=== PATIENT | male | born 1950 | race Caucasian/White ===

== ENCOUNTER 2021-01-31 08:23 | Outpatient (REF) | payer MEDICARE, SELFPAY ==
[2021-01-31 09:13] LABS: MANUAL DIFF FLAG NO
[2021-01-31 09:26] LABS: Basophils Percent Auto 0.4 % (0-2); Eosinophils Absolute Auto 0.2 X10*3/uL (0.0-0.4); Eosinophils Percent Auto 2.5 % (0-4); Hematocrit 48.5 % (42-52); Imm Gran Abs Auto 0.03 X10*3/uL (0.00-0.03); Imm Gran Pct Auto 0.4 % (0.0-0.4); Lymphocytes Absolute Auto 1.3 X10*3/uL (1.2-4.9); Lymphocytes Percent Auto 16.6 % (20-40); Mean Corpuscular Hemoglobin 30.2 pg (27.0-33.0); Mean Corpuscular Volume 91.5 fL (80-98); Mean Platelet Volume 10.7 fL (9.4-12.4); Monocytes Absolute Auto 0.6 X10*3/uL (0.1-1.2); Monocytes Percent Auto 7.4 % (2-11); Neutrophils Absolute Auto 5.6 X10*3/uL (2.0-8.3); Neutrophils Percent Auto 72.7 % (45-73); Platelet Count 238 X10*3/uL (160-400); Red Cell Distribution Width 13.4 % (11.0-16.0); White Blood Count 7.7 X10*3/uL (4.8-10.8)
[2021-01-31 09:33] LABS: Alanine Aminotransferase 18 U/L (0-40); Albumin Level 4.5 g/dL (3.5-5.0); Alkaline Phosphatase 78 U/L (39-117); Anion Gap 13 (12-20); Aspartate Amino Transferase 13 U/L (5-37); Bilirubin Total 0.6 mg/dL (0.0-1.0); Blood Urea Nitrogen 15 mg/dL (9-16); Calcium 9.8 mg/dL (8.4-10.2); Carbon Dioxide 28 mmol/L (22-29); Chloride 100 mmol/L (96-108); Cholesterol 170 mg/dL; Estimated Glomerular Filt Rate > 60; Glucose Fasting 307 mg/dL (60-99); HDL Cholesterol 50 mg/dL; LDL Cholesterol Calculated 107 mg/dl; Potassium 4.2 mmol/L (3.3-5.1); Sodium 137 mmol/L (135-145); Triglycerides 65 mg/dL
[2021-01-31 09:54] LABS: TSH reflex Free T4 0.54 uIU/mL (0.32-4.0)
[2021-01-31 11:01] LABS: Glucose Urine UA >=1000 MG/DL (NEG); Leukocyte Esterase Urine NEG (NEG); Nitrite Urine NEG (NEG); PH 6.5 (5.0-8.0); Specific Gravity - Urine 1.015 (1.005-1.025); Urine Blood NEG (NEG); Urine Ketones NEG (NEG); Urine Protein NEG (NEG-TRACE)
[2021-01-31 11:06] LABS: Appearance Urine CLEAR; Color Urine YELLOW
[2021-01-31 11:18] LABS: Creatinine Urine 56.21 mg/dL; Microalbum/Creatinine Ratio Ur 24.9 ug/mg cr
[2021-01-31 11:19] LABS: RBC Urine 0 /HPF (0); WBC Urine 0 /HPF (0-4)
== END 2021-01-31 08:24 | disposition home or self-care (01) ==
LOC: HO.LAB 08:23
PROVIDERS: PCP Internal Medicine; Visit Provider Internal Medicine
DX: I10 Essential (primary) hypertension (principal); E11.9 Type 2 diabetes mellitus without complications; E78.00 Pure hypercholesterolemia, unspecified; I25.10 Atherosclerotic heart disease of native coronary artery without angina pectoris
CPT/HCPCS: 36415; 80053; 80061; 81001; 81003; 82043; 84443; 85025

== ENCOUNTER 2022-07-11 09:12 | Outpatient (REF) | payer MEDICARE, SELFPAY ==
[2022-07-11 10:55] LABS: Basophils Percent Auto 0.6 % (0-2); Eosinophils Absolute Auto 0.2 X10*3/uL (0.0-0.4); Eosinophils Percent Auto 3.1 % (0-4); Hematocrit 47.8 % (42.0-52.0); Hemoglobin 15.6 g/dl (14.0-18.0); Imm Gran Abs Auto 0.02 X10*3/uL (0.00-0.03); Imm Gran Pct Auto 0.3 % (0.0-0.4); Lymphocytes Absolute Auto 1.1 X10*3/uL (1.2-4.9); Lymphocytes Percent Auto 16.3 % (20-40); MANUAL DIFF FLAG NO; Mean Corpuscular HGB Conc 32.6 g/dl (31.0-36.0); Mean Corpuscular Hemoglobin 29.3 pg (27.0-33.0); Mean Corpuscular Volume 89.7 fL (80.0-98.0); Mean Platelet Volume 10.5 fL (9.4-12.4); Monocytes Absolute Auto 0.5 X10*3/uL (0.1-1.2); Monocytes Percent Auto 7.9 % (2-11); Neutrophils Absolute Auto 4.9 x10*3/uL (2.0-8.3); Neutrophils Percent Auto 71.8 % (45-73); Platelet Count 233 X10*3/uL (160-400); Red Blood Count 5.33 X10*6/uL (4.60-5.80); Red Cell Distribution Width 13.4 % (11.0-16.0); White Blood Count 6.9 X10*3/uL (4.8-10.8)
[2022-07-11 11:06] LABS: Estimated Average Glucose 298 mg/dL
[2022-07-11 11:11] LABS: Appearance Urine Clear; Color Urine Yellow; Glucose Urine UA >=1000 mg/dL (Negative); Leukocyte Esterase Urine Negative (Negative); Nitrite Urine Negative (Negative); PH 6.5 (5.0-9.0); Specific Gravity - Urine >= 1.030 (1.005-1.025); UMIC TRIGGER UACC YES; Urine Blood Negative (Negative); Urine Ketones Negative (Negative); Urine Protein Negative (Neg-Trace)
[2022-07-11 11:21] LABS: Alanine Aminotransferase 20 U/L (0-40); Albumin Level 4.5 g/dL (3.5-5.0); Alkaline Phosphatase 80 U/L (39-117); Anion Gap 15 (12-20); Aspartate Amino Transferase 14 U/L (5-37); Blood Urea Nitrogen 16 mg/dL (9-16); Calcium 9.5 mg/dL (8.4-10.2); Carbon Dioxide 24 mmol/L (22-29); Chloride 102 mmol/L (96-108); Cholesterol 153 mg/dL; Estimated Glomerular Filt Rate > 60; Glucose Fasting 257 mg/dL (60-99); HDL Cholesterol 46 mg/dL; LDL Cholesterol Calculated 95 mg/dl; Potassium 4.3 mmol/L (3.3-5.1); Sodium 137 mmol/L (135-145); Total Protein 6.8 g/dL (6.5-8.0); Triglycerides 61 mg/dL
[2022-07-11 11:32] LABS: Bacteria Urine None Seen (None Seen); Hyaline Casts Urine 0-2 /LPF (0-2); RBC Urine 0-2 /HPF (0-2); Squamous Epithelial Cell Urine 0-2 /HPF (0-2); WBC Urine 0-5 /HPF (0-5)
[2022-07-11 11:44] LABS: PSA,Total (Free>4and<10) 6.69 ng/mL (0.00-4.00); TSH reflex Free T4 0.58 uIU/mL (0.32-4.0)
[2022-07-11 11:47] LABS: Microalbum/Creatinine Ratio Ur 23.9 ug/mg cr
[2022-07-13 09:52] LABS: C Peptide 1.98 ng/mL (0.80-3.85)
[2022-07-14 10:57] LABS: Free Prostate Spec Ag 1.6 ng/mL; Percent Free Prostate Spec Ag 22 % (calc) (>25); Prostate Specific Ag Total 7.2 ng/mL (< OR = 4.0)
== END 2022-07-11 09:13 | disposition home or self-care (01) ==
LOC: HO.10HDL 09:12
PROVIDERS: Visit Provider Internal Medicine
DX: Z12.5 Encounter for screening for malignant neoplasm of prostate (principal); E11.9 Type 2 diabetes mellitus without complications; E55.9 Vitamin D deficiency, unspecified; E78.00 Pure hypercholesterolemia, unspecified; N40.0 Benign prostatic hyperplasia without lower urinary tract symptoms; R97.20 Elevated prostate specific antigen [PSA]; I10 Essential (primary) hypertension
CPT/HCPCS: 36415; 80053; 80061; 81001; 81003; 82043; 82306; 83036; 84153; 84154; 84443; 84681; 85025

== ENCOUNTER 2022-09-11 10:57 | Outpatient (REF) | payer MEDICARE, SELFPAY | END 2022-09-11 10:58 | disposition home or self-care (01) | LOC: HO.SH 10:57 | PROVIDERS: Visit Provider Internal Medicine | DX: Z01.118 Encounter for examination of ears and hearing with other abnormal findings (principal); H90.3 Sensorineural hearing loss, bilateral | CPT/HCPCS: 92557; 92567 ==

== ENCOUNTER 2022-11-21 10:37 | Outpatient (REF) | payer MEDICARE, SELFPAY ==
[2022-11-21 13:47] LABS: MANUAL DIFF FLAG NO
[2022-11-21 14:01] LABS: Appearance Urine Clear; Color Urine Yellow; Glucose Urine UA >=1000 mg/dL (Negative); Leukocyte Esterase Urine Negative (Negative); Nitrite Urine Negative (Negative); PH 6.5 (5.0-9.0); UMIC TRIGGER UACC YES; Urine Blood Negative (Negative); Urine Ketones Negative (Negative); Urine Protein Negative (Neg-Trace)
[2022-11-21 14:06] LABS: Bacteria Urine None Seen (None Seen); Hyaline Casts Urine 0-2 /LPF (0-2); RBC Urine 0-2 /HPF (0-2); Squamous Epithelial Cell Urine 0-2 /HPF (0-2); WBC Urine 0-5 /HPF (0-5)
[2022-11-21 14:07] LABS: Basophils Percent Auto 0.3 % (0-2); Eosinophils Absolute Auto 0.1 X10*3/uL (0.0-0.4); Hematocrit 47.3 % (42.0-52.0); Hemoglobin 15.3 g/dl (14.0-18.0); Imm Gran Abs Auto 0.03 X10*3/uL (0.00-0.03); Imm Gran Pct Auto 0.5 % (0.0-0.4); Lymphocytes Absolute Auto 1.1 X10*3/uL (1.2-4.9); Lymphocytes Percent Auto 16.6 % (20-40); Mean Corpuscular HGB Conc 32.3 g/dl (31.0-36.0); Mean Corpuscular Hemoglobin 29.1 pg (27.0-33.0); Mean Corpuscular Volume 89.9 fL (80.0-98.0); Mean Platelet Volume 10.9 fL (9.4-12.4); Monocytes Absolute Auto 0.5 X10*3/uL (0.1-1.2); Monocytes Percent Auto 8.2 % (2-11); Neutrophils Absolute Auto 4.8 x10*3/uL (2.0-8.3); Neutrophils Percent Auto 72.4 % (45-73); Platelet Count 230 X10*3/uL (160-400); Red Blood Count 5.26 X10*6/uL (4.60-5.80); Red Cell Distribution Width 13.7 % (11.0-16.0); White Blood Count 6.6 X10*3/uL (4.8-10.8)
[2022-11-21 14:15] LABS: Estimated Average Glucose 272 mg/dL; Hemoglobin A1c % 11.1 %
[2022-11-21 14:31] LABS: Alanine Aminotransferase 16 U/L (0-40); Albumin Level 4.6 g/dL (3.5-5.0); Alkaline Phosphatase 80 U/L (39-117); Anion Gap 15 (12-20); Aspartate Amino Transferase 13 U/L (5-37); Bilirubin Total 0.8 mg/dL (0.0-1.0); Blood Urea Nitrogen 20 mg/dL (9-16); Calcium 9.8 mg/dL (8.4-10.2); Carbon Dioxide 26 mmol/L (22-29); Chloride 100 mmol/L (96-108); Cholesterol 139 mg/dL; Estimated Glomerular Filt Rate > 60; Glucose Fasting 277 mg/dL (60-99); HDL Cholesterol 50 mg/dL; LDL Cholesterol Calculated 78 mg/dl; Potassium 4.6 mmol/L (3.3-5.1); Sodium 136 mmol/L (135-145); Total Protein 6.9 g/dL (6.5-8.0); Triglycerides 57 mg/dL
[2022-11-21 14:35] LABS: Creatinine Urine 61.75 mg/dL; Microalbum/Creatinine Ratio Ur 17.8 ug/mg cr
[2022-11-21 14:40] LABS: TSH reflex Free T4 0.58 uIU/mL (0.32-4.0); Vitamin D 25-OH Total 24.4 ng/mL (>30)
== END 2022-11-21 10:38 | disposition home or self-care (01) ==
LOC: HO.10HDL 10:37
PROVIDERS: Visit Provider Internal Medicine
DX: E78.00 Pure hypercholesterolemia, unspecified (principal); E11.9 Type 2 diabetes mellitus without complications; I10 Essential (primary) hypertension; E55.9 Vitamin D deficiency, unspecified; R30.0 Dysuria
CPT/HCPCS: 36415; 80053; 80061; 81001; 81003; 82043; 82306; 83036; 84443; 85025

== ENCOUNTER 2022-12-29 17:31 | Outpatient (AMB) | payer MEDICARE, SELFPAY ==
[2022-12-29 17:31] VITALS: BP 124/78; PULSE 68; TEMP 36.9; O2SAT 99; BMI 23.7
--- NOTE | 2022-12-29 17:31 | MHC.PC.OV ---
Vital Signs 12/29/22 17:31 Height 5 ft 11 in Weight 170 lb BMI 23.7 BP 124/78 Blood Pressure Location Lt brachial Position Sitting Pulse 68 Pulse Source Pulse Oximeter Temp 98.4 F Pulse Oximetry (%) 99 Oxygen Delivery Method Room Air Intake Visit Reasons: 3m follow up Intake Note: Pt is here for 3 month f/u [employer] Security Consultant Required: No Accompanied by: Self / Same As Patient Allergies No Known Allergies [No Known Allergies*] Allergy (Verified 02/12/23 10:01) Medication List - Last Reconciled 12/29/22 by Srinivasan Acuna MD atorvastatin 80 mg PO DAILY lisinopril 10 mg PO DAILY metformin 500 mg PO BID metoprolol tartrate 25 mg PO BID nitroglycerin 0.4 mg sublingual Q5M sitagliptin phosphate (Januvia) 100 mg PO DAILY 90 days tamsulosin 0.4 mg PO DAILY Tobacco use date assessed: 09/29/22 HPI 3m follow up HPI Details Patient comes in today for his follow up visit States that he feels okay He denies any headaches or dizziness Denies any chest pains, no shortness of breath No nausea/vomiting, no abdominal pain No change in bowel habits noted Had his follow-up labs done last month - to discuss his results [facility] Medical History (Updated 02/12/23 @ 10:25 by Tim Dunbar MD) Vitamin D deficiency Elevated PSA Benign prostatic hyperplasia Coronary artery disease Rectal pain Perianal cyst Diabetes mellitus Pure hypercholesterolemia Benign essential hypertension Surgical History History of colonoscopy (~08/26/19) Hx of CABG (~2004) Family History Father Colon cancer Mother No problems noted. Other Family history non-contributory Social History (Updated 02/12/23 @ 10:04 by Harper Trejo) Household Members: Significant Other Housing: Apartment Do you presently have visiting nurse or other home services: No Alcohol intake: never Patient Tobacco Use Status: Never used Tobacco Second Hand Smoke Exposure: Yes service: No Current occupational status: employed Cognitive needs: No Hearing needs: No Vision needs: Yes Questionnaire PHQ-9 Over the last 2 weeks, how often have you been bothered by any of the following problems? 1. Little interest or pleasure in doing things: not at all 2. Feeling down, depressed, or hopeless: not at all 3. Trouble falling or staying asleep, or sleeping too much: not at all 4. Feeling tired or having little energy: not at all 5. Poor appetite or overeating: not at all 6. Feeling bad about yourself - or that you are a failure or have let yourself or your family down: not at all 7. Trouble concentrating on things, such as reading the newspaper or watching television: not at all 8. Moving or speaking so slowly that other people could have noticed. Or the opposite - being so fidgety or restless that you have been moving around a lot more than usual: not at all 9. Thoughts that you would be better off or of hurting yourself in some way: not at all Total score: 0 Depression Screening Interpretation: Negative 60117 - PHQ-9 Billing: Yes Source: Developed by Drs. Zeus Harvey, Lidia Sen, Abraham Avila and colleagues, with an educational shamika from [employer]. Thrive Questionnaire Date Thrive assessed: 12/29/22 I am a: Patient What is your living situation today?: I have a steady place to live Within the past 12 months, did the food you bought not last and you didn't have the money to get more?: Never true Within the past 12 months, did you worry whether your food would run out before you got money to buy more?: Never true Do you have trouble paying for medicines?: No Do you have trouble getting transportation to medical appointments?: No Do you have trouble paying your heating and electricity bill?: No Do you have trouble taking care of your child, family member or friend?: No Do you have trouble with day-to-day activities such as bathing, preparing meals, shopping, managing finances, etc.?: No Are you currently unemployed and looking for a job?: No Are you interested in more education?: No Currently or been in a relationship where the following occur: no concerns reported AUDIT C Alcohol Use Questionnaire (AUDIT-C) 1. How often do you have a drink containing alcohol?: Never 3. How often do you have six or more drinks on one occasion?: Never Total Score: 0 Score Reviewed/Action Taken: Yes LANDY-7 AMB Questionnaire LANDY-7 Date LANDY - 7 assessed: 12/29/22 Feeling nervous, anxious, or on edge: 0 = Not at all Not being able to stop or control worryin = Not at all Worrying too much about different things: 0 = Not at all Trouble relaxin = Not at all Being so restless that it is hard to sit still: 0 = Not at all Becoming easily annoyed or irritable: 0 = Not at all Feeling afraid as if something awful might happen: 0 = Not at all Total LANDY-7 score (0-4 normal; 5-9 mild; 10-14 moderate; 15-21 severe): 0 Source: Developed by Drs. Zeus Harvey, Lidia Sen, Abraham Avila and colleagues, with an educational shamika from [employer]. Review of Systems Const Denies chills, Denies fatigue, Denies fever(s) and Denies headache(s) ENT Denies dysphagia, Denies dizziness, Denies otalgia, Denies headache(s), Denies neck pain, Denies odynophagia and Denies sore throat Card Denies chest pain, Denies palpitations and Denies dyspnea Resp Denies cough and Denies dyspnea GI Denies abdominal pain, Denies constipation, Denies dysphagia, Denies heartburn, Denies diarrhea, Denies nausea, Denies odynophagia and Denies vomiting Denies dysuria and Denies nocturia Musc Denies neck pain Neuro Denies dizziness and Denies headache(s) Endo Denies fatigue and Denies palpitations Physical exam (Primary Care) Vital Signs: Last Vital Signs Temp 98.4 F 12/29/22 17:31 Pulse 68 12/29/22 17:31 BP 124/78 12/29/22 17:31 Pulse Ox 99 12/29/22 17:31 Oxygen Delivery Method Room Air 12/29/22 17:31 BMI result Body Mass Index 23.7 Tobacco/Smoking Status: Tobacco use Status Tobacco use date assessed 09/29/22 12/29/22 17:34 Patient Tobacco Use Status Never used Tobacco 12/29/22 17:34 PHQ-9: PHQ-9 Score PHQ-9: Total score 0 12/29/22 17:48 Depression Screening Interpretation: Negative Thrive Assessment: Date of Thrive Assessment Date Thrive assessed 12/29/22 12/29/22 17:36 Currently or been in a relationship where the following occur: no concerns reported Const General: no acute distress and alert HENMT Ears: TM's normal bilaterally and EAC's normal Throat: Yes posterior oropharynx normal and Yes tonsils normal (no TP congestion) Neck Neck: Yes no lymphadenopathy and Yes supple Resp Auscultation: clear to auscultation bilaterally, no rales and no wheezes Cardio Rate: regular rate Rhythm: regular rhythm Heart sounds: no murmurs GI Palpation (GI): Soft to palpation, nontender and No hepatosplenomegaly present Skin General skin exam: no rashes or lesions noted Extrem General: Yes no clubbing, cyanosis or edema Results Reviewed Results Reviewed: Laboratory Tests 11/21/22 11/21/22 11/21/22 10:42 10:42 10:42 WBC 6.6 Hgb 15.3 Hct 47.3 Plt Count 230 Sodium 136 Potassium 4.6 Creatinine 0.98 Estimated GFR > 60 Fasting Glucose 277 H Hemoglobin A1c % 11.1 Calcium 9.8 AST 13 ALT 16 Triglycerides 57 Cholesterol 139 LDL Cholesterol, Calc 78 HDL Cholesterol 50 25-OH Vitamin D Total 24.4 TSH 0.58 Ur Specific [place] Urine Protein Urine Glucose (UA) Urine Blood Microalb/Creat Ratio 11/21/22 11/21/22 10:48 10:48 WBC Hgb Hct Plt Count Sodium Potassium Creatinine Estimated GFR Fasting Glucose Hemoglobin A1c % Calcium AST ALT Triglycerides Cholesterol LDL Cholesterol, Calc HDL Cholesterol 25-OH Vitamin D Total TSH Ur Specific [place] 1.020 Urine Protein Negative Urine Glucose (UA) >=1000 H Urine Blood Negative Microalb/Creat Ratio 17.8 Assessment and Plan Assessment & Plan (1) Diabetes mellitus: Code(s): E11.9 - Type 2 diabetes mellitus without complications Qualifiers: Diabetes mellitus complication status: with hyperglycemia Diabetes mellitus care home insulin use: without care home use Diabetes mellitus type: type 2 Qualified Code(s): E11.65 - Type 2 diabetes mellitus with hyperglycemia Plan: HgbA1c was at 11.1% on his labs done last month (in-office HgbA1c was at 10.9% a few months ago) - goal is at least <7.5% Reinforced diabetic diet Continue Sitagliptin 100 mg QD; will increase his Metformin now to 1000 mg BID Is advised that we will also consider referring him to Endocrinology for further evaluation and management if he still cannot get his diabetes control improved significantly over the next few months [facility] exam (2) Coronary artery disease: Comment: KONG to LAD, SVG to ramus, OM, posterior lateral branch and RCA in 2004 Code(s): I25.10 - Atherosclerotic heart disease of [place] coronary artery without angina pectoris Qualifiers: Associated angina: without angina Coronary Disease-Associated Artery/Lesion type: [place] artery [place] vs. transplanted heart: [place] heart Qualified Code(s): I25.10 - Atherosclerotic heart disease of [place] coronary artery without angina pectoris Plan: S/P CABG in 2004 Continue Aspirin 81 mg QD and Metoprolol 25 mg BID Patient has NTG 0.4 mg tablets to take SL PRN for chest pains Follow up with cardiology as scheduled (3) Pure hypercholesterolemia: Code(s): E78.00 - Pure hypercholesterolemia, unspecified Plan: Results of his labs done last month reviewed and discussed with patient Reinforced low cholesterol diet Continue Atorvastatin 80 mg QD Will recheck his fasting lipids and labs in 4 months for follow up (4) Benign essential hypertension: Code(s): I10 - Essential (primary) hypertension Plan: Reinforced low sodium diet - goal is systolic BP of at least 120 to 130 mm or less Continue Lisinopril 10 mg QD and Metoprolol 25 mg BID (5) Vitamin D deficiency: Code(s): E55.9 - Vitamin D deficiency, unspecified Plan: His Vitamin D level was still low on his labs done last month Will start him on Vitamin D3 2000 units QD (6) Benign prostatic hyperplasia: Code(s): N40.0 - Benign prostatic hyperplasia without lower urinary tract symptoms Qualifiers: Lower urinary tract symptom presence: unspecified whether lower urinary tract symptoms present Qualified Code(s): N40.0 - Benign prostatic hyperplasia without lower urinary tract symptoms Plan: Total PSA was elevated at 6.69 but free PSA level was normal at 1.6 and % of free PSA was low at 22% when last checked in June 2022 Continue Tamsulosin 0.4 mg Q HS Follow up with urology as scheduled Plan Follow up in 4 months Orders: Orders Complete Blood Count Auto Diff 4 Months I10 - Essential (primary) hypertension Hemoglobin A1c 4 Months E11.9 - Type 2 diabetes mellitus without complications UA CC w/rflx Micro + Cult 4 Months R30.0 - Dysuria Comprehensive [place]. Panel Fast 4 Months E78.00 - Pure hypercholesterolemia, unspecified Lipid Panel 4 Months E78.00 - Pure hypercholesterolemia, unspecified TSH reflex Free T4 4 Months E78.00 - Pure hypercholesterolemia, unspecified Microalbumin, Random (w Creat) 4 Months E11.9 - Type 2 diabetes mellitus without complications Vitamin D 25-OH Total 4 Months E55.9 - Vitamin D deficiency, unspecified Medications: New cholecalciferol (vitamin D3) 50 mcg PO DAILY 90 caps 3RF 90 days E55.9 - Vitamin D deficiency, unspecified Changed From metformin 500 mg PO BID 180 tabs 0RF To metformin 1,000 mg PO BID 180 tabs 1RF 90 days Coding Level of Care Code Est Pt Level 4 (97045) Diagnoses Type 2 diabetes mellitus with hyperglycemia, without long-term current use of insulin E11.65 Diabetes mellitus complication status: with hyperglycemia Diabetes mellitus termite inspector insulin use: without termite inspector use Diabetes mellitus type: type 2 Coronary artery disease involving [place] coronary artery of [place] heart without angina pectoris I25.10 Associated angina: without angina Coronary Disease-Associated Artery/Lesion type: [place] artery [place] vs. transplanted heart: [place] heart Pure hypercholesterolemia E78.00 Benign essential hypertension I10 Vitamin D deficiency E55.9 Benign prostatic hyperplasia, unspecified whether lower urinary tract symptoms present N40.0 Lower urinary tract symptom presence: unspecified whether lower urinary tract symptoms present
== END 2022-12-29 18:00 | disposition home or self-care (01) ==
LOC: HO.HMGH 17:31
PROVIDERS: PCP Internal Medicine; Visit Provider Internal Medicine
DX: E11.65 Type 2 diabetes mellitus with hyperglycemia (principal); I25.10 Atherosclerotic heart disease of native coronary artery without angina pectoris; E78.00 Pure hypercholesterolemia, unspecified; I10 Essential (primary) hypertension; E55.9 Vitamin D deficiency, unspecified; N40.0 Benign prostatic hyperplasia without lower urinary tract symptoms
CPT/HCPCS: 99214

== ENCOUNTER 2023-01-10 01:15 | Inpatient (IN) | payer MEDICARE, SELFPAY ==
[2023-01-10] VITALS (12 sets, daily range): BP systolic 94–168; BP diastolic 45–94; PULSE 78–155; RESP 9–18; TEMP 36.6–37.1; O2SAT 95–100; BMI 28.6; BMI 26.6
--- NOTE | ~2023-01-10 | XR_ITS ---
EXAMINATION: XR CHEST CLINICAL INFORMATION: Palpitations COMPARISON: 12/19/2015 TECHNIQUE: Frontal view of the chest was obtained. FINDINGS: Normal symmetric lung volumes. No parenchymal consolidation. No pleural effusion. No pneumothorax. Cardiomediastinal silhouette and pulmonary vascularity are within normal limits. No acute osseous abnormalities. Median sternotomy. XR/XR chest 1V IMPRESSION: No acute findings.
--- NOTE | 2023-01-10 01:24 | ECG_ITS ---
Test Reason : Tachycardia Blood Pressure : / mmHG Vent. Rate : 139 BPM Atrial Rate : 278 BPM P-R Int : 000 ms QRS Dur : 078 ms QT Int : 356 ms P-R-T Axes : 258 -42 255 degrees QTc Int : 541 ms Poor data quality, interpretation may be adversely affected Atrial flutter with 2:1 A-V conduction Left axis deviation Inferior-posterior infarct , age undetermined ST & T wave abnormality, consider lateral ischemia Abnormal ECG When compared with ECG of 19-DEC-2015 17:04, Rhythm change Referred By: Diego Shaffer Electronically Signed By:CHRISTINE MARTIN
[2023-01-10 01:37] LABS: Glucose, Whole Blood 325 mg/dL (60-115)
[2023-01-10 01:39] LABS: MANUAL DIFF FLAG NO
[2023-01-10 01:40] LABS: Basophils Percent Auto 0.3 % (0-2); Eosinophils Absolute Auto 0.2 X10*3/uL (0.0-0.4); Eosinophils Percent Auto 2.6 % (0-4); Hematocrit 44.9 % (42.0-52.0); Imm Gran Abs Auto 0.02 X10*3/uL (0.00-0.03); Imm Gran Pct Auto 0.2 % (0.0-0.4); Lymphocytes Absolute Auto 1.4 X10*3/uL (1.2-4.9); Lymphocytes Percent Auto 15.1 % (20-40); Mean Corpuscular HGB Conc 33.4 g/dl (31.0-36.0); Mean Corpuscular Hemoglobin 29.5 pg (27.0-33.0); Mean Corpuscular Volume 88.2 fL (80.0-98.0); Mean Platelet Volume 10.5 fL (9.4-12.4); Monocytes Absolute Auto 0.6 X10*3/uL (0.1-1.2); Monocytes Percent Auto 6.9 % (2-11); Neutrophils Absolute Auto 6.7 x10*3/uL (2.0-8.3); Neutrophils Percent Auto 74.9 % (45-73); Platelet Count 184 X10*3/uL (160-400); Red Blood Count 5.09 X10*6/uL (4.60-5.80); Red Cell Distribution Width 13.7 % (11.0-16.0)
--- NOTE | 2023-01-10 01:44 | ED_ITS ---
HPI - Arrhythmia/Palpitations General Chief Complaint: Arrhythmia/Palpitations Stated Complaint: Chest Pressure with SVT Time Seen by Provider: 01/10/23 01:22 Source: patient and EMS Mode of arrival: EMS Limitations: no limitations History of Present Illness HPI narrative: 72-year-old male history of HTN, CAD, s/p quadruple bypass. Patient presented today by EMS for evaluation of palpitation patient was found at the scene to have elevated heart rate, given at the scene 6/12 mg of adenosine that primary slowed down the heart rate, in the ED patient's heart rate in the 140s EKG is showing atrial flutter, patient is not known to have history of AFib/atrial flutter not taking anticoagulation. Patient has no chest pain, no SOB, not dizziness, not feeling confused. Related Data Previous Rx's Medication Instructions Recorded sitagliptin phosphate 100 mg 100 mg PO DAILY 90 days #90 tabs 07/18/22 tablet (Januvia) metoprolol tartrate 25 mg tablet 25 mg PO BID #180 tabs 08/13/22 atorvastatin 80 mg tablet 80 mg PO DAILY #90 tabs 11/12/22 lisinopril 10 mg tablet 10 mg PO DAILY #90 tabs 11/12/22 tamsulosin 0.4 mg capsule 0.4 mg PO DAILY #90 caps 11/12/22 cholecalciferol (vitamin D3) 50 50 mcg PO DAILY 90 days #90 caps 12/29/22 mcg (2,000 unit) capsule metformin 1,000 mg tablet 1,000 mg PO BID 90 days #180 tabs 12/29/22 nitroglycerin 0.4 mg sublingual 0.4 mg sublingual Q5M for angina 01/03/23 tablet #25 tabs Allergies Allergy/AdvReac Type Severity Reaction Status Date / Time No Known Allergies Allergy Verified 12/29/22 17:39 [No Known Allergies*] Review of Systems Review of Systems: All other systems are reviewed and are negative Constitutional: Reports as per HPI and Reports no additional constitutional complaints Eyes: Reports as per HPI and Reports no additional eye complaints Reports system reviewed and no additional complaints, except as documented Cardiovascular: Reports as per HPI and Reports no additional cardiovascular complaints Respiratory: Reports as per HPI and Reports no additional respiratory complaints Gastrointestinal: Reports as per HPI and Reports no additional gastrointestinal complaints Genitourinary: Reports no additional female genitourinary complaints Musculoskeletal: Reports no additional musculoskeletal complaints Skin/Breast: Reports system reviewed and no additional complaints, except as docu Psychiatric: Reports no additional psychiatric complaints Endocrine: Reports no additional endocrine complaints Hematologic/Lymphatic: Reports no additional hematologic/lymphatic complaints Allergic/Immunologic: Reports no additional allergic/immunologic complaints Reports system reviewed and no additional complaints, except as documented and R eports Abnormal speech present [facility] Past Medical History Medical History Benign essential hypertension Benign prostatic hyperplasia Coronary artery disease Diabetes mellitus Elevated PSA Perianal cyst Pure hypercholesterolemia Rectal pain Vitamin D deficiency Surgical History History of colonoscopy (~08/26/19) Hx of CABG (~2004) Family History Family History Other Family history non-contributory Social History Social History Housing: Apartment Alcohol intake: current Alcohol intake frequency: does not drink Patient Tobacco Use Status: Never used Tobacco Smoked in Last 30 Days: No Second Hand Smoke Exposure: Yes Use of substances other than those prescribed or required for medical reasons: No Advance Directives: No Advance Directives Information Provided: No service: No Current occupational status: employed Cognitive needs: No Hearing needs: No Vision needs: Yes Physical Exam Vital Signs: Vital Signs: Last Vital Signs Temp 98.7 F 01/10/23 02:04 Pulse 121 H 01/10/23 03:46 Resp 12 01/10/23 03:46 BP 110/45 L 01/10/23 03:46 Pulse Ox 98 01/10/23 03:46 O2 Del Method Room Air 01/10/23 03:46 BMI result Body Mass Index 28.6 Vital signs have been reviewed as appeared to be correct. Blood pressure normal. Heart rate elevated. Respiration rate normal. Temperature normal. Oxygen saturation normal. Appearance: Alert. Oriented X3. No acute distress. Head: Normal external exam. Normocephalic. Atraumatic. No Cruz signs noted. No raccoon eyes noted Eyes: PERRLA. EOMI. Conjunctiva and sclera normal. Eyelids normal. ENT: TM's Normal. Pharynx normal. Uvula midline. Moist mucous membranes. No trismus noted. No drooling noted. No muffled voice noted. Neck: Normal inspection. Neck supple. FROM. No adenopathy. Thyroid Normal. No meningeal signs. No neck mass noted. CVS: Normal heart rate and rhythm. Heart sound normal. No murmurs noted. Pulses normal throughout. Respiratory: No respiratory distress. Painless inspiration. Breath sounds normal. No wheezes/rales/rhonchi noted. Chest nontender. No accessory muscle usage noted or decreased air movement noted. Abdomen: Soft and nontender. Bowel sounds normal in all 4 quadrants. No distention noted. No organomegaly noted. No visible injury noted. Back: No CVA tenderness. Full range of motion noted. Skin: Skin warm and dry. Normal skin color. Normal skin turgor. No rashes/lesions/lacerations noted. Extremities: No lower extremity edema. Extremities exhibit normal range of motion. Extremities nontender. Neuro: Oriented X 3. Cranial nerve exam: II-XII are grossly intact No motor deficit. No sensory deficit. Reflexes normal. Course Course Course Narrative: 72-year-old male with CAD and quadruple bypass history came in with palpitation found to be in atrial flutter patient is on Cardizem drip, heart rate is fluctuating anywhere between 100-140 flutter, patient remained asymptomatic with no CP or palpitation or dizziness. Hyperglycemia with no anion gap or electrolyte disturbance no DKA was given regular insulin. Medications Administered Generic Name Dose Route Start Last Admin Trade Name Freq PRN Reason Stop Dose Admin Diltiazem HCl 125 mg/ Sodium 125 mls @ 0 mls/hr 01/10/23 02:00 01/10/23 02:45 Chloride IVCONT 15 mg/hr .Q0M CLARITA 15 mls/hr Titration Protocol Per Protocol Discontinued Medications Generic Name Dose Route Start Last Admin Trade Name Freq PRN Reason Stop Dose Admin Diltiazem HCl 20 mg 01/10/23 01:42 01/10/23 01:48 Diltiazem Hcl 50 Mg/10 Ml Vial IVPUSH 01/10/23 01:43 20 mg STAT STA Administration Medical Decision Making Differential Diagnosis Differential Diagnoses: The differential diagnosis associated with the presentation includes (Supraventricular arrhythmia, ACS, electrolyte disturbance, anemia, DKA.) Admission/Observation Consideration of admission/observation: Escalation of care including admission/observation considered Consult Healthcare Provider Management of the patient was discussed with: Hospitalist (Dr. Hobson) Lab Data MDM Lab Attestation statement: I reviewed the patient's lab results. 01/10/23 01:34 01/10/23 01:34 Labs: Lab Results 01/10/23 01/10/23 01/10/23 Range/Units 01:32 01:34 01:34 WBC 9.0 (4.8-10.8) X10*3/uL RBC 5.09 (4.60-5.80) X10*6/uL Hgb 15.0 (14.0-18.0) g/dl Hct 44.9 (42.0-52.0) % MCV 88.2 (80.0-98.0) fL MCH 29.5 (27.0-33.0) pg MCHC 33.4 (31.0-36.0) g/dl RDW 13.7 (11.0-16.0) % Plt Count 184 (160-400) X10*3/uL MPV 10.5 (9.4-12.4) fL Immature Gran % (Auto) 0.2 (0.0-0.4) % Neut % (Auto) 74.9 H (45-73) % Lymph % (Auto) 15.1 L (20-40) % [place] % (Auto) 6.9 (2-11) % Eos % (Auto) 2.6 (0-4) % Baso % (Auto) 0.3 (0-2) % Lymph # (Auto) 1.4 (1.2-4.9) X10*3/uL [place] # (Auto) 0.6 (0.1-1.2) X10*3/uL Eos # (Auto) 0.2 (0.0-0.4) X10*3/uL Baso # (Auto) 0.0 (0.0-0.2) X10*3/uL Abs Immat Gran (auto) 0.02 (0.00-0.03) X10*3/uL Absolute Neuts (auto) 6.7 (2.0-8.3) x10*3/uL Absolute Nucleated RBC 0.000 (0.0-0.012) X10*3/uL Nucleated RBC % (auto) 0.0 (0.0-0.2) /100WBC D-Dimer High Sensitivty NG/ML Sodium 135 (135-145) mmol/L Potassium 4.2 (3.3-5.1) mmol/L Chloride 101 (96-108) mmol/L Carbon Dioxide 22 (22-29) mmol/L Anion Gap 16 (12-20) BUN 19 H (9-16) mg/dL Creatinine 1.10 (0.5-1.4) mg/dL Estim Creat Clear Calc 59.6 Estimated GFR > 60 POC Glucose 325 H (60-115) mg/dL Random Glucose 402 H* (60-115) mg/dL Calcium 9.1 D (8.4-10.2) mg/dL Magnesium 1.9 (1.6-2.6) mg/dL Total Bilirubin 0.6 (0.0-1.0) mg/dL AST 16 (5-37) U/L ALT 23 (0-40) U/L Alkaline Phosphatase 125 H (39-117) U/L Troponin I High Sens (<3.5-35.0) ng/L B-Natriuretic Peptide (<100) pg/mL Total Protein 6.6 (6.5-8.0) g/dL Albumin 4.4 (3.5-5.0) g/dL Urine Color Urine Appearance Urine pH (5.0-9.0) Ur Specific [place] (1.005-1.025) Urine Protein (Neg-Trace) mg/dL Urine Glucose (UA) (Negative) mg/dL Urine Ketones (Negative) mg/dL Urine Blood (Negative) Urine Nitrite (Negative) Ur Leukocyte Esterase (Negative) Urine RBC (0-2) /HPF Urine WBC (0-5) /HPF Ur Squamous Epith Cells (0-2) /HPF Urine Bacteria (None Seen) Hyaline Casts (0-2) /LPF COVID-19 (ROSALIO) (Negative) COVID-19 Clin Com 01/10/23 01/10/23 01/10/23 Range/Units 01:34 01:34 01:34 WBC (4.8-10.8) X10*3/uL RBC (4.60-5.80) X10*6/uL Hgb (14.0-18.0) g/dl Hct (42.0-52.0) % MCV (80.0-98.0) fL MCH (27.0-33.0) pg MCHC (31.0-36.0) g/dl RDW (11.0-16.0) % Plt Count (160-400) X10*3/uL MPV (9.4-12.4) fL Immature Gran % (Auto) (0.0-0.4) % Neut % (Auto) (45-73) % Lymph % (Auto) (20-40) % [place] % (Auto) (2-11) % Eos % (Auto) (0-4) % Baso % (Auto) (0-2) % Lymph # (Auto) (1.2-4.9) X10*3/uL [place] # (Auto) (0.1-1.2) X10*3/uL Eos # (Auto) (0.0-0.4) X10*3/uL Baso # (Auto) (0.0-0.2) X10*3/uL Abs Immat Gran (auto) (0.00-0.03) X10*3/uL Absolute Neuts (auto) (2.0-8.3) x10*3/uL Absolute Nucleated RBC (0.0-0.012) X10*3/uL Nucleated RBC % (auto) (0.0-0.2) /100WBC D-Dimer High Sensitivty 153 NG/ML Sodium (135-145) mmol/L Potassium (3.3-5.1) mmol/L Chloride (96-108) mmol/L Carbon Dioxide (22-29) mmol/L Anion Gap (12-20) BUN (9-16) mg/dL Creatinine (0.5-1.4) mg/dL Estim Creat Clear Calc Estimated GFR POC Glucose (60-115) mg/dL Random Glucose (60-115) mg/dL Calcium (8.4-10.2) mg/dL Magnesium (1.6-2.6) mg/dL Total Bilirubin (0.0-1.0) mg/dL AST (5-37) U/L ALT (0-40) U/L Alkaline Phosphatase (39-117) U/L Troponin I High Sens 12.3 (<3.5-35.0) ng/L B-Natriuretic Peptide (<100) pg/mL Total Protein (6.5-8.0) g/dL Albumin (3.5-5.0) g/dL Urine Color Urine Appearance Urine pH (5.0-9.0) Ur Specific [place] (1.005-1.025) Urine Protein (Neg-Trace) mg/dL Urine Glucose (UA) (Negative) mg/dL Urine Ketones (Negative) mg/dL Urine Blood (Negative) Urine Nitrite (Negative) Ur Leukocyte Esterase (Negative) Urine RBC (0-2) /HPF Urine WBC (0-5) /HPF Ur Squamous Epith Cells (0-2) /HPF Urine Bacteria (None Seen) Hyaline Casts (0-2) /LPF COVID-19 (ROSALIO) Negative (Negative) COVID-19 Clin Com See Note 01/10/23 01/10/23 Range/Units 01:34 01:58 WBC (4.8-10.8) X10*3/uL RBC (4.60-5.80) X10*6/uL Hgb (14.0-18.0) g/dl Hct (42.0-52.0) % MCV (80.0-98.0) fL MCH (27.0-33.0) pg MCHC (31.0-36.0) g/dl RDW (11.0-16.0) % Plt Count (160-400) X10*3/uL MPV (9.4-12.4) fL Immature Gran % (Auto) (0.0-0.4) % Neut % (Auto) (45-73) % Lymph % (Auto) (20-40) % [place] % (Auto) (2-11) % Eos % (Auto) (0-4) % Baso % (Auto) (0-2) % Lymph # (Auto) (1.2-4.9) X10*3/uL [place] # (Auto) (0.1-1.2) X10*3/uL Eos # (Auto) (0.0-0.4) X10*3/uL Baso # (Auto) (0.0-0.2) X10*3/uL Abs Immat Gran (auto) (0.00-0.03) X10*3/uL Absolute Neuts (auto) (2.0-8.3) x10*3/uL Absolute Nucleated RBC (0.0-0.012) X10*3/uL Nucleated RBC % (auto) (0.0-0.2) /100WBC D-Dimer High Sensitivty NG/ML Sodium (135-145) mmol/L Potassium (3.3-5.1) mmol/L Chloride (96-108) mmol/L Carbon Dioxide (22-29) mmol/L Anion Gap (12-20) BUN (9-16) mg/dL Creatinine (0.5-1.4) mg/dL Estim Creat Clear Calc Estimated GFR POC Glucose (60-115) mg/dL Random Glucose (60-115) mg/dL Calcium (8.4-10.2) mg/dL Magnesium (1.6-2.6) mg/dL Total Bilirubin (0.0-1.0) mg/dL AST (5-37) U/L ALT (0-40) U/L Alkaline Phosphatase (39-117) U/L Troponin I High Sens (<3.5-35.0) ng/L B-Natriuretic Peptide 39 (<100) pg/mL Total Protein (6.5-8.0) g/dL Albumin (3.5-5.0) g/dL Urine Color Yellow Urine Appearance Clear Urine pH 7.0 (5.0-9.0) Ur Specific [place] 1.020 (1.005-1.025) Urine Protein Negative (Neg-Trace) mg/dL Urine Glucose (UA) >=1000 H (Negative) mg/dL Urine Ketones Negative (Negative) mg/dL Urine Blood Negative (Negative) Urine Nitrite Negative (Negative) Ur Leukocyte Esterase Negative (Negative) Urine RBC 0-2 (0-2) /HPF Urine WBC 0-5 (0-5) /HPF Ur Squamous Epith Cells 0-2 (0-2) /HPF Urine Bacteria None Seen (None Seen) Hyaline Casts 0-2 (0-2) /LPF COVID-19 (ROSALIO) (Negative) COVID-19 Clin Com Independent Interpretation I performed an independent interpretation of an: EKG (A flutter with 2-1 AV conduction, left axis deviation, left axis deviation, no ST-T changes.) and Plain X-Ray (No acute pathology.) Radiology Impression Discussion of test interpretation with radiology: I have reviewed the radiologist's reading. Critical Care Time Critical Care Time Critical Care Time: Yes Total Critical Care Time: 60 Attestation: I spent 60 minutes providing critical care service to the patient, this includ ing time spent at the bedside to evaluate the patient, reassess the patient, monitoring vital signs, review labs, and radiographic studies, counseling the patient/family, discussing the case with consultants, disposition the patient. Discharge Plan Discharge Clinical Impression: Atrial flutter, Acute hyperglycemia Patient Disposition: Admitted As Inpatient
[2023-01-10] MEDS: dilTIAZem HCL 50 MG/10 ML VIAL 20 MG IVPUSH (01:48)
[2023-01-10 01:55] LABS: D Dimer High Sensitivity 153 NG/ML
[2023-01-10 02:02] LABS: COVID-19 Test Negative (Negative); IDNOW Serial# 16C4AD1C; Troponin-I High Sensitivity 12.3 ng/L (<3.5-35.0)
[2023-01-10 02:03] LABS: Appearance Urine Clear; Color Urine Yellow; Glucose Urine UA >=1000 mg/dL (Negative); Leukocyte Esterase Urine Negative (Negative); Nitrite Urine Negative (Negative); UMIC TRIGGER UACC YES; Urine Blood Negative (Negative); Urine Ketones Negative (Negative); Urine Protein Negative (Neg-Trace)
[2023-01-10 02:06] LABS: Bacteria Urine None Seen (None Seen); Hyaline Casts Urine 0-2 /LPF (0-2); RBC Urine 0-2 /HPF (0-2); Squamous Epithelial Cell Urine 0-2 /HPF (0-2); WBC Urine 0-5 /HPF (0-5)
[2023-01-10 02:08] LABS: Alanine Aminotransferase 23 U/L (0-40); Albumin Level 4.4 g/dL (3.5-5.0); Alkaline Phosphatase 125 U/L (39-117); Anion Gap 16 (12-20); Aspartate Amino Transferase 16 U/L (5-37); Bilirubin Total 0.6 mg/dL (0.0-1.0); Blood Urea Nitrogen 19 mg/dL (9-16); Calcium 9.1 mg/dL (8.4-10.2); Carbon Dioxide 22 mmol/L (22-29); Chloride 101 mmol/L (96-108); Creatinine Clr Calc Pharmacy 59.6; Estimated Glomerular Filt Rate > 60; Glucose Random 402 mg/dL (60-115); Potassium 4.2 mmol/L (3.3-5.1); Sodium 135 mmol/L (135-145); Total Protein 6.6 g/dL (6.5-8.0)
[2023-01-10] MEDS: dilTIAZem HCL 125 MG in 0.9 % Sodium Chloride 100 ML 10 MG IVCONT (02:14)
[2023-01-10 02:16] LABS: Magnesium 1.9 mg/dL (1.6-2.6)
--- NOTE | 2023-01-10 02:20 | PC.NURSE ---
Pt aox4 resting at the bedside. Dilt 125 started at 10mg/hr as ordered. Sinus tach on monitor with HR 135.
[2023-01-10 02:29] LABS: B Type Natriuretic Peptide 39 pg/mL (<100)
--- NOTE | 2023-01-10 02:46 | PC.NURSE ---
Pt aox4 resting at the bedside. Sinus tach on monitor with HR 150. Dilt drip titrated to 15mg/hr. MD aware.
[2023-01-10] MEDS: Insulin Regular, Human 100 UNIT/ML 3 ML VIAL IVPUSH (03:51)
--- NOTE | 2023-01-10 04:13 | PM.IMHP ---
History of Present Illness Date of Service: 01/10/23 Chief Complaint: Palpitations This is a 72-year-old male with pertinent history of essential hypertension, CAD status post CABG, mixed hyperlipidemia, qvf-rslxvfw-ywpewevyq diabetes mellitus, BPH who presents to the emergency department for evaluation of palpitations. Patient states he has been having on and off palpitations for the last 4-6 weeks. On the day of presentation, it was sustained and worse with any activity. Patient denies associated chest discomfort or shortness of breath. No fever, chills, cough, abdominal pain, changes in urinary or bowel habits. No previous history of atrial fibrillation or atrial flutter. Not on anticoagulation. Upon EMS arrival, he was given 6 mg and 12 mg of adenosine. Upon arrival in the ER, his heart rate was in the 160s with 12 lead EKG showing atrial flutter. He was given IV diltiazem push and initiated on diltiazem drip. Review of Systems Constitutional: Constitutional: Reports no additional constitutional complaints Cardiovascular: Cardiovascular: Reports palpitations Respiratory: Respiratory: Reports no additional respiratory complaints Gastrointestinal: Gastrointestinal: Reports no additional gastrointestinal complaints Genitourinary: Genitourinary: Reports no additional male genitourinary complaints Endocrine: Endocrine: Reports palpitations [facility] Medical History Benign essential hypertension Benign prostatic hyperplasia Coronary artery disease Diabetes mellitus Elevated PSA Perianal cyst Pure hypercholesterolemia Rectal pain Vitamin D deficiency Family History Other Family history non-contributory Surgical History History of colonoscopy (~08/26/19) Hx of CABG (~2004) Social History Housing: Apartment Alcohol intake: current Alcohol intake frequency: does not drink Patient Tobacco Use Status: Never used Tobacco Smoked in Last 30 Days: No Second Hand Smoke Exposure: Yes Use of substances other than those prescribed or required for medical reasons: No Advance Directives: No Advance Directives Information Provided: No service: No Current occupational status: employed Cognitive needs: No Hearing needs: No Vision needs: Yes Meds Allergies Allergy/AdvReac Type Severity Reaction Status Date / Time No Known Allergies Allergy Verified 12/29/22 17:39 [No Known Allergies*] Active Medications: Current Medications Acetaminophen (Acetaminophen 325 Mg Tablet) 650 mg PO Q6H PRN PRN Reason: Pain, Mild (Pain Scale 1-3) Acetaminophen (Acetaminophen Supp 650 Mg Supp.Rect) 650 mg [place] Q6H PRN PRN Reason: Pain, Mild (Pain Scale 1-3) Enoxaparin Sodium (Enoxaparin Sodium 40 Mg/0.4 Ml Syringe) 40 mg SUBCUT Q24H CLARITA Diltiazem HCl 125 mg/ Sodium (Chloride) 125 mls @ 0 mls/hr IVCONT .Q0M CLARITA; Protocol Last Titration: 01/10/23 02:45 Dose: 15 mg/hr, 15 mls/hr Melatonin (Melatonin 3 Mg Tablet) 6 mg PO BEDTIME PRN PRN Reason: Insomnia Ondansetron HCl (Ondansetron Hcl 4 Mg/2 Ml Vial) 4 mg IVPUSH Q8H PRN PRN Reason: Nausea and Vomiting Pharmacy Consult (Consult Rx Perform Med Rec) 1 each MISCELLANE ONCE PRN PRN Reason: Consult order Sodium Chloride (0.9 % Sodium Chloride Flush 3 Ml Syringe) 3 ml IVFLUSH QSHIFT CLARITA Physical Exam Vital Signs and Narrative: Vital Signs: Last Vital Signs Temp 98.7 F 01/10/23 02:04 Pulse 121 H 01/10/23 03:46 Resp 12 01/10/23 03:46 BP 110/45 L 01/10/23 03:46 Pulse Ox 98 01/10/23 03:46 O2 Del Method Room Air 01/10/23 03:46 BMI result Body Mass Index 28.6 Middle-aged male lying in bed in no distress Neck supple, no JVD Irregularly irregular, S1-S2 heard Regular breath sounds bilaterally, no wheezing or crackles appreciated Abdomen soft nontender, no guarding, no rigidity Patient is awake, alert and oriented to self, place, time and person ; no focal motor deficit Psych: Normal mood No pedal edema Results Labs 01/10/23 01:34 01/10/23 01:34 Labs: Laboratory Results - last 24 hr 01/10/23 01/10/23 01/10/23 01:32 01:34 01:34 MCV 88.2 MCH 29.5 MCHC 33.4 RDW 13.7 Plt Count 184 MPV 10.5 Immature Gran % (Auto) 0.2 Neut % (Auto) 74.9 H Lymph % (Auto) 15.1 L [place] % (Auto) 6.9 Eos % (Auto) 2.6 Baso % (Auto) 0.3 Lymph # (Auto) 1.4 [place] # (Auto) 0.6 Eos # (Auto) 0.2 Baso # (Auto) 0.0 Abs Immat Gran (auto) 0.02 Absolute Neuts (auto) 6.7 Absolute Nucleated RBC 0.000 Nucleated RBC % (auto) 0.0 D-Dimer High Sensitivty Anion Gap 16 Estim Creat Clear Calc 59.6 Estimated GFR > 60 POC Glucose 325 H Random Glucose 402 H* Calcium 9.1 D Magnesium 1.9 Total Bilirubin 0.6 AST 16 ALT 23 Alkaline Phosphatase 125 H Troponin I High Sens B-Natriuretic Peptide Total Protein 6.6 Albumin 4.4 Urine Color Urine Appearance Urine pH Ur Specific [place] Urine Protein Urine Glucose (UA) Urine Ketones Urine Blood Urine Nitrite Ur Leukocyte Esterase Urine RBC Urine WBC Ur Squamous Epith Cells Urine Bacteria Hyaline Casts COVID-19 (ROSALIO) COVID-19 Clin Com 01/10/23 01/10/23 01/10/23 01:34 01:34 01:34 MCV MCH MCHC RDW Plt Count MPV Immature Gran % (Auto) Neut % (Auto) Lymph % (Auto) [place] % (Auto) Eos % (Auto) Baso % (Auto) Lymph # (Auto) [place] # (Auto) Eos # (Auto) Baso # (Auto) Abs Immat Gran (auto) Absolute Neuts (auto) Absolute Nucleated RBC Nucleated RBC % (auto) D-Dimer High Sensitivty 153 Anion Gap Estim Creat Clear Calc Estimated GFR POC Glucose Random Glucose Calcium Magnesium Total Bilirubin AST ALT Alkaline Phosphatase Troponin I High Sens 12.3 B-Natriuretic Peptide Total Protein Albumin Urine Color Urine Appearance Urine pH Ur Specific [place] Urine Protein Urine Glucose (UA) Urine Ketones Urine Blood Urine Nitrite Ur Leukocyte Esterase Urine RBC Urine WBC Ur Squamous Epith Cells Urine Bacteria Hyaline Casts COVID-19 (ROSALIO) Negative COVID-19 Clin Com See Note 01/10/23 01/10/23 01:34 01:58 MCV MCH MCHC RDW Plt Count MPV Immature Gran % (Auto) Neut % (Auto) Lymph % (Auto) [place] % (Auto) Eos % (Auto) Baso % (Auto) Lymph # (Auto) [place] # (Auto) Eos # (Auto) Baso # (Auto) Abs Immat Gran (auto) Absolute Neuts (auto) Absolute Nucleated RBC Nucleated RBC % (auto) D-Dimer High Sensitivty Anion Gap Estim Creat Clear Calc Estimated GFR POC Glucose Random Glucose Calcium Magnesium Total Bilirubin AST ALT Alkaline Phosphatase Troponin I High Sens B-Natriuretic Peptide 39 Total Protein Albumin Urine Color Yellow Urine Appearance Clear Urine pH 7.0 Ur Specific [place] 1.020 Urine Protein Negative Urine Glucose (UA) >=1000 H Urine Ketones Negative Urine Blood Negative Urine Nitrite Negative Ur Leukocyte Esterase Negative Urine RBC 0-2 Urine WBC 0-5 Ur Squamous Epith Cells 0-2 Urine Bacteria None Seen Hyaline Casts 0-2 COVID-19 (ROSALIO) COVID-19 Clin Com Assessment and Plan (1) Atrial flutter: Status: Acute (2) Acute hyperglycemia: Status: Acute Plan This is a 72-year-old male with pertinent history of essential hypertension, CAD status post CABG, mixed hyperlipidemia, xdt-dngnpea-rbfasuwyn diabetes mellitus, BPH who presents to the emergency department for evaluation of palpitations. #. Atrial flutter/fib with RVR, new onset: Initiated on diltiazem drip in the ER. Will administer p.o. SA tory blocking agent. Obtaining TSH and echocardiogram. Consulted Cardiology, appreciate assistance. [id number] score 4, will benefit from anticoagulation. #. Twe-bqljmzt-sxukyapdn diabetes mellitus with hyperglycemia: Initiating Accu-Cheks with sliding scale insulin #. CAD status post CABG: Continue beta-jun, high-intensity statin. Not on antiplatelet agent #. Essential hypertension: Continue home antihypertensives #. BPH: On Flomax Med rec pending DVT prophylaxis: Lovenox 40 mg daily Full code Cardiac diet Admit as inpatient and will require two night minimum hospital stay for close monitoring of heart rate Time Spent With Patient Time: Total time managing care of this patient today ____ minutes. Quality Stroke Does the patient have a stroke diagnosis?: No VTE Prior VTE?: No VTE Risk Level:: Medical - moderate - high VTE Device Contraindication: Treatment Not Indicated VTE Drug Contraindication: N/A - Med Ordered
[2023-01-10 04:30] LABS: Glucose, Whole Blood 170 mg/dL (60-115)
[2023-01-10 04:57] LABS: Thyroid Stimulating Hormone 0.59 uIU/mL (0.32-4.0)
[2023-01-10] MEDS: Enoxaparin Sodium 40 MG/0.4 ML SYRINGE SUBCUT (05:00)
--- NOTE | 2023-01-10 05:14 | PC.NURSE ---
administered lovenox SQ per SACHIN Cross text Dr Hobson about BP of 97/47, questioned administering metoprolol HR also ranging between 91-[address] Hobson hold med at this time nurse assigned to this pt made aware of med held and med administered
[2023-01-10 05:27] LABS: MANUAL DIFF FLAG NO
[2023-01-10 05:30] LABS: Basophils Percent Auto 0.3 % (0-2); Eosinophils Absolute Auto 0.2 X10*3/uL (0.0-0.4); Hematocrit 43.3 % (42.0-52.0); Hemoglobin 14.5 g/dl (14.0-18.0); Imm Gran Abs Auto 0.03 X10*3/uL (0.00-0.03); Imm Gran Pct Auto 0.3 % (0.0-0.4); Lymphocytes Absolute Auto 1.9 X10*3/uL (1.2-4.9); Lymphocytes Percent Auto 19.3 % (20-40); Mean Corpuscular HGB Conc 33.5 g/dl (31.0-36.0); Mean Corpuscular Hemoglobin 30.3 pg (27.0-33.0); Mean Corpuscular Volume 90.6 fL (80.0-98.0); Mean Platelet Volume 10.5 fL (9.4-12.4); Monocytes Absolute Auto 0.8 X10*3/uL (0.1-1.2); Monocytes Percent Auto 8.6 % (2-11); Neutrophils Absolute Auto 6.7 x10*3/uL (2.0-8.3); Neutrophils Percent Auto 69.5 % (45-73); Platelet Count 212 X10*3/uL (160-400); Red Blood Count 4.78 X10*6/uL (4.60-5.80); White Blood Count 9.6 X10*3/uL (4.8-10.8)
[2023-01-10 05:45] LABS: Anion Gap 14 (12-20); Blood Urea Nitrogen 16 mg/dL (9-16); Calcium 9.1 mg/dL (8.4-10.2); Carbon Dioxide 23 mmol/L (22-29); Chloride 107 mmol/L (96-108); Creatinine Clr Calc Pharmacy 77.2; Estimated Glomerular Filt Rate > 60; Glucose Random 171 mg/dL (60-115); Potassium 4.5 mmol/L (3.3-5.1); Sodium 139 mmol/L (135-145)
--- NOTE | 2023-01-10 06:45 | PC.NURSE ---
RN to RN report given to nurse Jacobs. Pt going to room 467 and aware of plan of care.
--- NOTE | 2023-01-10 06:49 | PC.NURSE ---
Dilt drip paused at this time per protocol as pts HR 78.
[2023-01-10 07:12] LABS: Glucose, Whole Blood 183 mg/dL (60-115)
[2023-01-10] MEDS: Insulin Lispro 100 UNIT/ML 3 ML VIAL SUBCUT (07:31)
[2023-01-10 08:34] LABS: Glucose, Whole Blood 276 mg/dL (60-115)
[2023-01-10] MEDS: dilTIAZem HCL 125 MG in 0.9 % Sodium Chloride 100 ML IVCONT (08:46)
[2023-01-10] MEDS: 0.9 % Sodium Chloride Flush 3 ML SYRINGE IVFLUSH (08:47)
--- NOTE | 2023-01-10 08:51 | PHA.MEDREC ---
Pharmacy Consult ? Medication Reconciliation Pharmacy has completed the medication reconciliation. spoke with patient. confirmed all of his medications. Patient stated that he did not start the vitamin D3 yet and his metformin dose recently was increased and is still working his way up to it (500mg in AM and 1000mg in PM).
--- NOTE | 2023-01-10 09:25 | PM.EVENT ---
Event Note Date of Service: 01/10/23 Event Note: admitted this morning. Vitals reviewed. Pt seen and examined here with new onset AFIB with RVR This is a 72-year-old male with pertinent history of essential hypertension, CAD status post CABG, mixed hyperlipidemia, ext-hlcqfby-wacqnkpsy diabetes mellitus, BPH who presents to the emergency department for evaluation of palpitations. #.? Atrial flutter/fib with RVR, new onset: -IV cardizem, add metoprolol 50 q8, start eliquis, cardiology to asses, may need echo #.? Ngj-zrkmkis-yuzrpjoqa diabetes mellitus with hyperglycemia:? -restart metfomin, SSI, glucose check #.? CAD status post CABG:? Continue beta-jun, high-intensity statin.? #.? Essential hypertension: Continue home antihypertensives #.? BPH: On Flomax Time Spent With Patient Time: Total time managing care of this patient today ____ minutes.
--- NOTE | 2023-01-10 09:45 | MHC.CM.PN ---
Addendum entered by Brittani Gunderson 01/10/23 12:41: PATIENT IS UNABLE TO FIND A RIDE HOME, LYFT RIDE BOOKED. Addendum entered by Brittani Gunderson 01/10/23 11:11: DP: PT HAS BEEN MEDICALLY CLEARED FOR DC HOME, NO SERVICES. PT WILL FIND OWN RIDE. Original Note: [facility] DELIVERED PT LIVES WITH S/O IN AN APT. INDEPENDENT AT BASELINE AND F/T EMPLOYED. uNSURE IF HAS A COPY OF HCP, WILLING TO COMPLETE A NEW ONE. +COVID VAX X2 PCP DR. LEONG DP: HOME, NO SERVICES ANTICIPATED. PT WILL HAVE OWN RIDE HOME DEPENDING WHEN DC, MAY NEED LYFT. CM WILL CONTINUE TO FOLLOW.
--- NOTE | 2023-01-10 10:21 | PM.CNCAR ---
History of Present Illness History of Present Illness Date of Service: 01/10/23 Chief complaint: Palpitations Narrative: This is a cardiology consultation regarding atrial flutter. Patient does not see Cardiology regularly. He might of been followed in our office but need to review records from few years ago. It seems that he has a history of coronary disease and bypass surgery. Hypertension, dyslipidemia and diabetes. For the last few weeks, he has been having off and on palpitations. This led to ER evaluation. He was thought to be in atrial flutter with rapid rate. Then he was put on IV Cardizem and it seems that he converted to sinus rhythm. He does not have any other complaints like chest pain or shortness of breath or anything else from cardiac related. Review of Systems Review of Systems: Yes all other systems are reviewed and are negative Constitutional: Constitutional: Reports as per HPI and Reports no additional constitutional complaints Eyes: Eyes: Reports as per HPI and Denies no additional eye complaints ENT: Denies system reviewed and no additional complaints, except as documented and Reports as per HPI Cardiovascular: Cardiovascular: Reports as per HPI, Reports no additional cardiovascular complaints, Denies acrocyanosis, Denies cool extremities, Denies chest pain, Denies leg edema, Denies lightheadedness, Denies palpitations and Reports dyspnea Respiratory: Respiratory: Reports as per HPI, Denies no additional respiratory complaints and Reports dyspnea Gastrointestinal: Gastrointestinal: Reports as per HPI and Denies no additional gastrointestinal complaints Genitourinary: Genitourinary: Reports no additional male genitourinary complaints and Reports as per HPI Musculoskeletal: Musculoskeletal: Reports no additional musculoskeletal complaints and Reports as per HPI Integumentary/Breasts: Skin/Breast: Reports system reviewed and no additional complaints, except as docu Neurologic: Reports system reviewed and no additional complaints, except as documented and Reports as per HPI Psychiatric: Psychiatric: Reports no additional psychiatric complaints and Reports as per HPI Endocrine: Endocrine: Reports no additional endocrine complaints, Reports as per HPI and Denies palpitations Hematologic/Lymphatic: Hematologic/Lymphatic: Reports no additional hematologic/lymphatic complaints and Reports as per HPI Allergic/Immunologic: Allergic/Immunologic: Reports no additional allergic/immunologic complaints and Reports as per HPI [facility] Past Medical History Medical History (Updated 01/10/23 @ 10:25 by Tim Dunbar MD) Benign essential hypertension Benign prostatic hyperplasia Coronary artery disease Diabetes mellitus Elevated PSA Perianal cyst Pure hypercholesterolemia Rectal pain Vitamin D deficiency Family History Family History (Updated 01/10/23 @ 10:23 by Tim Dunbar MD) Father Colon cancer Mother No problems noted. Other Family history non-contributory Surgical History Surgical History (Updated 01/10/23 @ 10:25 by Tim Dunbar MD) History of colonoscopy (~08/26/19) Hx of CABG (~2004) Social History Social History Household Members: Significant Other Housing: Apartment Do you presently have visiting nurse or other home services: No Alcohol intake: current Alcohol intake frequency: does not drink Patient Tobacco Use Status: Never used Tobacco Second Hand Smoke Exposure: Yes service: No Current occupational status: employed Cognitive needs: No Hearing needs: No Vision needs: Yes Meds Allergies Allergy/AdvReac Type Severity Reaction Status Date / Time No Known Allergies Allergy Verified 12/29/22 17:39 [No Known Allergies*] Active Medications: Current Medications Acetaminophen (Acetaminophen 325 Mg Tablet) 650 mg PO Q6H PRN PRN Reason: Pain, Mild (Pain Scale 1-3) Acetaminophen (Acetaminophen Supp 650 Mg Supp.Rect) 650 mg AL Q6H PRN PRN Reason: Pain, Mild (Pain Scale 1-3) Apixaban (Apixaban 5 Mg Tablet) 5 mg PO BID [facility] Atorvastatin Calcium (Atorvastatin Calcium 80 Mg Tablet) 80 mg PO DAILY [facility] Glucose (Glucose Gel 15 Gm Gel..Gram.) 15 gm PO Q15M PRN; Protocol PRN Reason: per Hypoglycemia Standing Ord. Diltiazem HCl 125 mg/ Sodium (Chloride) 125 mls @ 0 mls/hr IVCONT .Q0M [facility]; Protocol Last Admin: 01/10/23 08:46 Dose: 5 mg/hr, 5 mls/hr Dextrose (D10) 250 mls @ 750 mls/hr IV Q15M PRN; Protocol PRN Reason: per Hypoglycemia Standing Ord. Insulin Human Lispro (Insulin Lispro 100 Unit/Ml 3 Ml Vial) 0 unit SUBCUT QIDACHS [facility]; Protocol Last Admin: 01/10/23 07:31 Dose: 2 unit Lisinopril (Lisinopril 10 Mg Tablet) 10 mg PO DAILY [facility]; Protocol Melatonin (Melatonin 3 Mg Tablet) 6 mg PO BEDTIME PRN PRN Reason: Insomnia Metformin HCl (Metformin Hcl 1,000 Mg Tablet) 1,000 mg PO BID [facility] Metoprolol Tartrate (Metoprolol Tartrate 50 Mg Tablet) 50 mg PO Q8H [facility]; Protocol Nitroglycerin (Nitroglycerin 0.4 Mg Tab.Subl) 0.4 mg SUBLINGUAL Q5M PRN PRN Reason: Angina Ondansetron HCl (Ondansetron Hcl 4 Mg/2 Ml Vial) 4 mg IVPUSH Q8H PRN PRN Reason: Nausea and Vomiting Pharmacy Consult (Consult Rx Perform Med Rec) 1 each MISCELLANE ONCE PRN PRN Reason: Consult order Sitagliptin Phosphate (Sitagliptin Phosphate 100 Mg Tablet) 100 mg PO DAILY [facility] Sodium Chloride (0.9 % Sodium Chloride Flush 3 Ml Syringe) 3 ml IVFLUSH QSHIFT [facility] Last Admin: 01/10/23 08:47 Dose: 3 ml Tamsulosin HCl (Tamsulosin Hcl 0.4 Mg Capsule) 0.4 mg PO DAILY [facility] Vitamin D (Cholecalciferol (Vitamin D3) 25 Mcg Tablet) 50 mcg PO DAILY [facility] Home Medications Medication Instructions Recorded Confirmed Last Taken Type magnesium hydroxide 1,200 mg 1,200 mg PO BID-TID PRN 01/10/23 01/10/23 Unknown History chewable tablet (Dulcolax Constipation (magnesium hydroxide)) nitroglycerin 0.4 mg sublingual 0.4 mg sublingual Q5M PRN Angina 01/10/23 01/10/23 Unknown History tablet Physical Exam Vital Signs: Vital Signs: Last Vital Signs Temp 97.9 F 01/10/23 07:55 Pulse 80 01/10/23 07:55 Resp 18 01/10/23 07:55 BP 137/67 01/10/23 07:55 Pulse Ox 99 01/10/23 07:55 O2 Del Method Room Air 01/10/23 07:55 BMI result Body Mass Index 26.6 Const: General: comfortable and no acute distress Orientation/consciousness: patient oriented x3 HEENT: Other: Unremarkable Head: Yes normal to inspection Neck: Neck: Yes normal visual inspection Chest: Chest palpation & inspection: normal inspection of the chest Resp: Auscultation: clear to auscultation bilaterally Cardio: Palpation: normal PMI Heart sounds: S1 normal heart sound present, S2 normal heart sound present, no gallops, Murmur heart sound present systolic III/ and at the right sternal border and no rubs GI: Palpation (GI): Soft to palpation Back/Spine/Pelvis: Other: unremarkable Skin: General skin exam: no rashes or lesions noted Neuro: General: patient oriented x3 Extrem: General: Yes normal to inspection Psych: Mental Status: mental status grossly normal Objective Labs and Meds 01/10/23 05:22 01/10/23 05:22 Lab results: Laboratory Results - last 24 hr 01/10/23 01/10/23 01/10/23 01:32 01:34 01:34 WBC 9.0 RBC 5.09 Hgb 15.0 Hct 44.9 MCV 88.2 MCH 29.5 MCHC 33.4 RDW 13.7 Plt Count 184 MPV 10.5 Immature Gran % (Auto) 0.2 Neut % (Auto) 74.9 H Lymph % (Auto) 15.1 L [place] % (Auto) 6.9 Eos % (Auto) 2.6 Baso % (Auto) 0.3 Lymph # (Auto) 1.4 [place] # (Auto) 0.6 Eos # (Auto) 0.2 Baso # (Auto) 0.0 Abs Immat Gran (auto) 0.02 Absolute Neuts (auto) 6.7 Absolute Nucleated RBC 0.000 Nucleated RBC % (auto) 0.0 D-Dimer High Sensitivty Sodium 135 Potassium 4.2 Chloride 101 Carbon Dioxide 22 Anion Gap 16 BUN 19 H Creatinine 1.10 Estim Creat Clear Calc 59.6 Estimated GFR > 60 POC Glucose 325 H Random Glucose 402 H* Calcium 9.1 D Magnesium 1.9 Total Bilirubin 0.6 AST 16 ALT 23 Alkaline Phosphatase 125 H Troponin I High Sens B-Natriuretic Peptide Total Protein 6.6 Albumin 4.4 TSH 0.59 Urine Color Urine Appearance Urine pH Ur Specific [place] Urine Protein Urine Glucose (UA) Urine Ketones Urine Blood Urine Nitrite Ur Leukocyte Esterase Urine RBC Urine WBC Ur Squamous Epith Cells Urine Bacteria Hyaline Casts COVID-19 ([facility]) COVID-19 Clin Com 01/10/23 01/10/23 01/10/23 01:34 01:34 01:34 WBC RBC Hgb Hct MCV MCH MCHC RDW Plt Count MPV Immature Gran % (Auto) Neut % (Auto) Lymph % (Auto) [place] % (Auto) Eos % (Auto) Baso % (Auto) Lymph # (Auto) [place] # (Auto) Eos # (Auto) Baso # (Auto) Abs Immat Gran (auto) Absolute Neuts (auto) Absolute Nucleated RBC Nucleated RBC % (auto) D-Dimer High Sensitivty 153 Sodium Potassium Chloride Carbon Dioxide Anion Gap BUN Creatinine Estim Creat Clear Calc Estimated GFR POC Glucose Random Glucose Calcium Magnesium Total Bilirubin AST ALT Alkaline Phosphatase Troponin I High Sens 12.3 B-Natriuretic Peptide Total Protein Albumin TSH Urine Color Urine Appearance Urine pH Ur Specific [place] Urine Protein Urine Glucose (UA) Urine Ketones Urine Blood Urine Nitrite Ur Leukocyte Esterase Urine RBC Urine WBC Ur Squamous Epith Cells Urine Bacteria Hyaline Casts COVID-19 ([facility]) Negative COVID-19 Clin Com See Note 01/10/23 01/10/23 01/10/23 01:34 01:58 04:25 WBC RBC Hgb Hct MCV MCH MCHC RDW Plt Count MPV Immature Gran % (Auto) Neut % (Auto) Lymph % (Auto) [place] % (Auto) Eos % (Auto) Baso % (Auto) Lymph # (Auto) [place] # (Auto) Eos # (Auto) Baso # (Auto) Abs Immat Gran (auto) Absolute Neuts (auto) Absolute Nucleated RBC Nucleated RBC % (auto) D-Dimer High Sensitivty Sodium Potassium Chloride Carbon Dioxide Anion Gap BUN Creatinine Estim Creat Clear Calc Estimated GFR POC Glucose 170 H Random Glucose Calcium Magnesium Total Bilirubin AST ALT Alkaline Phosphatase Troponin I High Sens B-Natriuretic Peptide 39 Total Protein Albumin TSH Urine Color Yellow Urine Appearance Clear Urine pH 7.0 Ur Specific [place] 1.020 Urine Protein Negative Urine Glucose (UA) >=1000 H Urine Ketones Negative Urine Blood Negative Urine Nitrite Negative Ur Leukocyte Esterase Negative Urine RBC 0-2 Urine WBC 0-5 Ur Squamous Epith Cells 0-2 Urine Bacteria None Seen Hyaline Casts 0-2 COVID-19 ([facility]) COVID-19 Clin Com 01/10/23 01/10/23 01/10/23 05:22 05:22 07:07 WBC 9.6 RBC 4.78 Hgb 14.5 Hct 43.3 MCV 90.6 MCH 30.3 MCHC 33.5 RDW 14.0 Plt Count 212 MPV 10.5 Immature Gran % (Auto) 0.3 Neut % (Auto) 69.5 Lymph % (Auto) 19.3 L [place] % (Auto) 8.6 Eos % (Auto) 2.0 Baso % (Auto) 0.3 Lymph # (Auto) 1.9 [place] # (Auto) 0.8 Eos # (Auto) 0.2 Baso # (Auto) 0.0 Abs Immat Gran (auto) 0.03 Absolute Neuts (auto) 6.7 Absolute Nucleated RBC 0.000 Nucleated RBC % (auto) 0.0 D-Dimer High Sensitivty Sodium 139 Potassium 4.5 Chloride 107 Carbon Dioxide 23 Anion Gap 14 BUN 16 Creatinine 0.85 Estim Creat Clear Calc 77.2 Estimated GFR > 60 POC Glucose 183 H Random Glucose 171 H Calcium 9.1 Magnesium Total Bilirubin AST ALT Alkaline Phosphatase Troponin I High Sens B-Natriuretic Peptide Total Protein Albumin TSH Urine Color Urine Appearance Urine pH Ur Specific [place] Urine Protein Urine Glucose (UA) Urine Ketones Urine Blood Urine Nitrite Ur Leukocyte Esterase Urine RBC Urine WBC Ur Squamous Epith Cells Urine Bacteria Hyaline Casts COVID-19 ([facility]) COVID-[employer] Com 01/10/23 08:24 WBC RBC Hgb Hct MCV MCH MCHC RDW Plt Count MPV Immature Gran % (Auto) Neut % (Auto) Lymph % (Auto) [place] % (Auto) Eos % (Auto) Baso % (Auto) Lymph # (Auto) [place] # (Auto) Eos # (Auto) Baso # (Auto) Abs Immat Gran (auto) Absolute Neuts (auto) Absolute Nucleated RBC Nucleated RBC % (auto) D-Dimer High Sensitivty Sodium Potassium Chloride Carbon Dioxide Anion Gap BUN Creatinine Estim Creat Clear Calc Estimated GFR POC Glucose 276 H Random Glucose Calcium Magnesium Total Bilirubin AST ALT Alkaline Phosphatase Troponin I High Sens B-Natriuretic Peptide Total Protein Albumin TSH Urine Color Urine Appearance Urine pH Ur Specific [place] Urine Protein Urine Glucose (UA) Urine Ketones Urine Blood Urine Nitrite Ur Leukocyte Esterase Urine RBC Urine WBC Ur Squamous Epith Cells Urine Bacteria Hyaline Casts COVID-19 ([facility]) COVID-19 [employer] Com ECG Interpretation: EKG shows atrial flutter with rapid rate at 139/Min. Possible inferior posterior infarct. Imaging Radiologist's impression: Impressions Chest X-Ray 01/10/23 04:00 IMPRESSION: No acute findings. Assessment and Plan (1) Atrial flutter with rapid ventricular response: Status: Acute (2) Coronary artery disease: Qualifiers: Coronary Disease-Associated Artery/Lesion type: [place] artery [place] vs. transplanted heart: [place] heart Associated angina: without angina Qualified Code(s): I25.10 - Atherosclerotic heart disease of [place] coronary artery without angina pectoris Status: Acute (3) Hx of CABG: Status: Acute (4) Benign essential hypertension: Status: Acute (5) Diabetes mellitus: Qualifiers: Diabetes mellitus type: type 2 Diabetes mellitus termite treater insulin use: without termite treater use Diabetes mellitus complication status: with hyperglycemia Qualified Code(s): E11.65 - Type 2 diabetes mellitus with hyperglycemia Status: Acute (6) Pure hypercholesterolemia: Status: Acute Plan Overall, 72-year-old gentleman with multiple cardiovascular risk factors and history of coronary disease/bypass surgery in the past presenting for atrial flutter with rapid rate. Was put on Cardizem drip. That can be stopped. Initial EKG with atrial flutter/rapid rate. Currently, he is sinus rhythm based on telemetry. With regard to medications, we can go up on the beta-jun dosing from metoprolol 25 mg b.i.d. to 50 mg b.i.d. With regard to anticoagulation, recommend starting Eliquis 5 mg b.i.d.. High sensitivity troponins within normal limits. Cardiac BNP is also within normal limits. Echocardiogram as well as follow-up appointment will be arranged. Discussed with Dr. Lorenz. Time Spent With Patient Time: Total time managing care of this patient today 75 minutes. This includes review of chart, laboratory data, imaging, review of telemetry, counseling patient, discussion with hospitalist, documentation, arranging follow up, coordination of care. Procedures Date of Service Date of Service: 01/10/23
[2023-01-10] MEDS: SITagliptin Phosphate 100 MG TABLET PO (10:37)
[2023-01-10] MEDS: Tamsulosin HCL 0.4 MG CAPSULE PO (10:37)
[2023-01-10] MEDS: Apixaban 5 MG TABLET PO (10:37)
[2023-01-10] MEDS: Metoprolol Tartrate 50 MG TABLET PO (10:37)
[2023-01-10] MEDS: Atorvastatin Calcium 80 MG TABLET PO (10:37)
[2023-01-10] MEDS: lisinopriL 10 MG TABLET PO (10:37)
[2023-01-10] MEDS: Cholecalciferol (Vitamin D3) 25 MCG TABLET 50 MCG PO (10:37)
--- NOTE | 2023-01-10 10:56 | P.DS_ITS ---
DS: Providers Provider Date of Service: 01/10/23 Date of admission: 01/10/23 04:10 Primary care physician: Srinivasan Acuna MD Consults: 01/10/23 04:12 Consult to Cardiology Routine Consulting Provider: [facility] Reason for consultation: a flutter Has provider been notified: Yes DS: Diagnosis Discharge Diagnosis (1) Atrial flutter with rapid ventricular response: Status: Resolved (2) Coronary artery disease: Status: Inactive (3) Hx of CABG: Status: Inactive (4) Benign essential hypertension: Status: Inactive (5) Diabetes mellitus: Status: Acute (6) Pure hypercholesterolemia: Status: Inactive DS: Summary Hospital Course Hospital Course: Chief Complaint: Palpitations This is a 72-year-old male with pertinent history of essential hypertension, CAD status post CABG, mixed hyperlipidemia, [id number] diabetes mellitus, BPH who presents to the emergency department for evaluation of palpitations.? Patient states he has been having on and off palpitations for the last 4-6 weeks.? On the day of presentation, it was sustained and worse with any activity.? Patient denies associated chest discomfort or shortness of breath.? No fever, chills, cough, abdominal pain, changes in urinary or bowel habits.? No previous history of atrial fibrillation or atrial flutter.? Not on anticoagulation.? Upon EMS arrival, he was given 6 mg and 12 mg of adenosine.? Upon arrival in the ER, his heart rate was in the 160s with 12 lead EKG showing atrial flutter.? He was given IV diltiazem push and initiated on diltiazem drip. Hospital course: He presented with palpaitations and found to be in AFIB with RVR , [id number] score 4. He was treated with IV cardizem with control of the heart rate and has been transitioned to oral Metoprolol at increased dose of 50 mg twice daily, previously on 25 bid for CAD. He is started on Eliquis 5 mg bid for stroke prevention. He will follo up with cardiology on outpatient basis. Time Spent with Patient Time attestation: Total time managing care of this patient today ____ minutes. Discharge coordination time: Greater than 30 minutes Quality: Safe Use of Opioids Does Pt have an Active Cancer Diagnosis on the Problem List?: No Quality: Stroke Does the patient have a stroke diagnosis?: No Physical Exam Vital Signs: Vital Signs: Last Vital Signs Temp 97.9 F 01/10/23 07:55 Pulse 80 01/10/23 07:55 Resp 18 01/10/23 07:55 BP 137/67 01/10/23 07:55 Pulse Ox 99 01/10/23 07:55 O2 Del Method Room Air 01/10/23 07:55 BMI result Body Mass Index 26.6 DS: Data Data Completed and Pending Labs on day of discharge: Laboratory Results - last 24 hr 01/10/23 01/10/23 01/10/23 01:32 01:34 01:34 WBC 9.0 RBC 5.09 Hgb 15.0 Hct 44.9 MCV 88.2 MCH 29.5 MCHC 33.4 RDW 13.7 Plt Count 184 MPV 10.5 Immature Gran % (Auto) 0.2 Neut % (Auto) 74.9 H Lymph % (Auto) 15.1 L [place] % (Auto) 6.9 Eos % (Auto) 2.6 Baso % (Auto) 0.3 Lymph # (Auto) 1.4 [place] # (Auto) 0.6 Eos # (Auto) 0.2 Baso # (Auto) 0.0 Abs Immat Gran (auto) 0.02 Absolute Neuts (auto) 6.7 Absolute Nucleated RBC 0.000 Nucleated RBC % (auto) 0.0 D-Dimer High Sensitivty Sodium 135 Potassium 4.2 Chloride 101 Carbon Dioxide 22 Anion Gap 16 BUN 19 H Creatinine 1.10 Estim Creat Clear Calc 59.6 Estimated GFR > 60 POC Glucose 325 H Random Glucose 402 H* Calcium 9.1 D Magnesium 1.9 Total Bilirubin 0.6 AST 16 ALT 23 Alkaline Phosphatase 125 H Troponin I High Sens B-Natriuretic Peptide Total Protein 6.6 Albumin 4.4 TSH 0.59 Urine Color Urine Appearance Urine pH Ur Specific [place] Urine Protein Urine Glucose (UA) Urine Ketones Urine Blood Urine Nitrite Ur Leukocyte Esterase Urine RBC Urine WBC Ur Squamous Epith Cells Urine Bacteria Hyaline Casts COVID-19 ([facility]) COVID-19 Clin Com 01/10/23 01/10/23 01/10/23 01:34 01:34 01:34 WBC RBC Hgb Hct MCV MCH MCHC RDW Plt Count MPV Immature Gran % (Auto) Neut % (Auto) Lymph % (Auto) [place] % (Auto) Eos % (Auto) Baso % (Auto) Lymph # (Auto) [place] # (Auto) Eos # (Auto) Baso # (Auto) Abs Immat Gran (auto) Absolute Neuts (auto) Absolute Nucleated RBC Nucleated RBC % (auto) D-Dimer High Sensitivty 153 Sodium Potassium Chloride Carbon Dioxide Anion Gap BUN Creatinine Estim Creat Clear Calc Estimated GFR POC Glucose Random Glucose Calcium Magnesium Total Bilirubin AST ALT Alkaline Phosphatase Troponin I High Sens 12.3 B-Natriuretic Peptide Total Protein Albumin TSH Urine Color Urine Appearance Urine pH Ur Specific [place] Urine Protein Urine Glucose (UA) Urine Ketones Urine Blood Urine Nitrite Ur Leukocyte Esterase Urine RBC Urine WBC Ur Squamous Epith Cells Urine Bacteria Hyaline Casts COVID-19 ([facility]) Negative COVID-19 Clin Com See Note 01/10/23 01/10/23 01/10/23 01:34 01:58 04:25 WBC RBC Hgb Hct MCV MCH MCHC RDW Plt Count MPV Immature Gran % (Auto) Neut % (Auto) Lymph % (Auto) [place] % (Auto) Eos % (Auto) Baso % (Auto) Lymph # (Auto) [place] # (Auto) Eos # (Auto) Baso # (Auto) Abs Immat Gran (auto) Absolute Neuts (auto) Absolute Nucleated RBC Nucleated RBC % (auto) D-Dimer High Sensitivty Sodium Potassium Chloride Carbon Dioxide Anion Gap BUN Creatinine Estim Creat Clear Calc Estimated GFR POC Glucose 170 H Random Glucose Calcium Magnesium Total Bilirubin AST ALT Alkaline Phosphatase Troponin I High Sens B-Natriuretic Peptide 39 Total Protein Albumin TSH Urine Color Yellow Urine Appearance Clear Urine pH 7.0 Ur Specific [place] 1.020 Urine Protein Negative Urine Glucose (UA) >=1000 H Urine Ketones Negative Urine Blood Negative Urine Nitrite Negative Ur Leukocyte Esterase Negative Urine RBC 0-2 Urine WBC 0-5 Ur Squamous Epith Cells 0-2 Urine Bacteria None Seen Hyaline Casts 0-2 COVID-19 ([facility]) COVID-19 Clin Com 01/10/23 01/10/23 01/10/23 05:22 05:22 07:07 WBC 9.6 RBC 4.78 Hgb 14.5 Hct 43.3 MCV 90.6 MCH 30.3 MCHC 33.5 RDW 14.0 Plt Count 212 MPV 10.5 Immature Gran % (Auto) 0.3 Neut % (Auto) 69.5 Lymph % (Auto) 19.3 L [place] % (Auto) 8.6 Eos % (Auto) 2.0 Baso % (Auto) 0.3 Lymph # (Auto) 1.9 [place] # (Auto) 0.8 Eos # (Auto) 0.2 Baso # (Auto) 0.0 Abs Immat Gran (auto) 0.03 Absolute Neuts (auto) 6.7 Absolute Nucleated RBC 0.000 Nucleated RBC % (auto) 0.0 D-Dimer High Sensitivty Sodium 139 Potassium 4.5 Chloride 107 Carbon Dioxide 23 Anion Gap 14 BUN 16 Creatinine 0.85 Estim Creat Clear Calc 77.2 Estimated GFR > 60 POC Glucose 183 H Random Glucose 171 H Calcium 9.1 Magnesium Total Bilirubin AST ALT Alkaline Phosphatase Troponin I High Sens B-Natriuretic Peptide Total Protein Albumin TSH Urine Color Urine Appearance Urine pH Ur Specific [place] Urine Protein Urine Glucose (UA) Urine Ketones Urine Blood Urine Nitrite Ur Leukocyte Esterase Urine RBC Urine WBC Ur Squamous Epith Cells Urine Bacteria Hyaline Casts COVID-19 ([facility]) COVID-[facility] 01/10/23 08:24 WBC RBC Hgb Hct MCV MCH MCHC RDW Plt Count MPV Immature Gran % (Auto) Neut % (Auto) Lymph % (Auto) [place] % (Auto) Eos % (Auto) Baso % (Auto) Lymph # (Auto) [place] # (Auto) Eos # (Auto) Baso # (Auto) Abs Immat Gran (auto) Absolute Neuts (auto) Absolute Nucleated RBC Nucleated RBC % (auto) D-Dimer High Sensitivty Sodium Potassium Chloride Carbon Dioxide Anion Gap BUN Creatinine Estim Creat Clear Calc Estimated GFR POC Glucose 276 H Random Glucose Calcium Magnesium Total Bilirubin AST ALT Alkaline Phosphatase Troponin I High Sens B-Natriuretic Peptide Total Protein Albumin TSH Urine Color Urine Appearance Urine pH Ur Specific [place] Urine Protein Urine Glucose (UA) Urine Ketones Urine Blood Urine Nitrite Ur Leukocyte Esterase Urine RBC Urine WBC Ur Squamous Epith Cells Urine Bacteria Hyaline Casts COVID-19 ([facility]) [employer] Discharge Plan Discharge Anticipated Discharge Date/Time: 01/10/23 10:41 Patient Disposition: Home, Self-Care Discharge Diagnosis: New atrial fibrillation Referrals: Srinivasan Acuna MD [Primary Care Provider] - 1 Week Discharge Medications: New metoprolol tartrate 50 mg Tablet 50 mg PO BID Qty: 60 1RF Protocol: Hold for SBP/HR < HOLD for SBP < : 90 HOLD for HR < : 60 Eliquis 5 mg Tablet 5 mg PO BID Qty: 60 1RF Continued Januvia 100 mg tablet 100 mg PO DAILY 90 Days Qty: 90 1RF atorvastatin 80 mg tablet 80 mg PO DAILY Qty: 90 0RF tamsulosin 0.4 mg capsule 0.4 mg PO DAILY Qty: 90 0RF Dulcolax (magnesium hydroxide) 1,200 mg Tablet,Chewable 1,200 mg PO BID-TID PRN (Reason: Constipation) nitroglycerin 0.4 mg tablet, sublingual 0.4 mg sublingual Q5M PRN (Reason: Angina) Rx Instructions: every 5 minutes metformin 1,000 mg tablet 1,000 mg PO BID 90 Days Qty: 180 1RF cholecalciferol (vitamin D3) 50 mcg (2,000 unit) capsule 50 mcg PO DAILY 90 Days Qty: 90 3RF Discontinued metoprolol tartrate 25 mg tablet 25 mg PO BID Qty: 180 2RF No Action lisinopril 10 mg tablet 5 mg PO DAILY Qty: 90 0RF Discharge Orders: Discharge Order (Routine); Ordered 01/10/23 Ordered By: Amandeep Lorenz Diet: Advance to usual diet Activity on Discharge: As tolerated Stand Alone Forms: Patient Portal Discharge page Care Plan Goals: control of atrial fibrilation and prevent stroke Health Concerns: new atrial fibrilation Plan of Treatment: Take metoprolol 50 bid, previously 25 Take eliquis to thin your blood and prevent stroke follow up with Dr. Dunbar Assessment: as above Discharge Date/Time: 01/10/23 12:46
== END 2023-01-10 12:46 | disposition home or self-care (01) | DRG 310 ==
LOC: HO.ED 03:51 → HO.EDOVER 04:14 → HO.IMC 06:24
PROVIDERS: Admitting Provider Student in an Organized Health Care Education/Training Program; Emergency Provider Emergency Medicine; PCP Internal Medicine; Visit Provider Internal Medicine
DX: I48.92 Unspecified atrial flutter (principal); I25.10 Atherosclerotic heart disease of native coronary artery without angina pectoris; E78.2 Mixed hyperlipidemia; N40.0 Benign prostatic hyperplasia without lower urinary tract symptoms; E11.65 Type 2 diabetes mellitus with hyperglycemia; Z20.822 Contact with and (suspected) exposure to COVID-19; Z95.1 Presence of aortocoronary bypass graft; Z79.01 Long term (current) use of anticoagulants; Z79.84 Long term (current) use of oral hypoglycemic drugs; Z79.899 Other long term (current) drug therapy
CPT/HCPCS: 36415; 71045; 80048; 80053; 81001; 82947; 83735; 83880; 84443; 84484; 85025; 85379; 87635; 93005; 99285; J1650

== ENCOUNTER → 2023-01-22 14:57 | Outpatient (REF) | payer MEDICARE, SELFPAY ==
--- NOTE | 2023-01-22 14:59 | CA_ITS ---
Transthoracic Echocardiogram Patient (Last, First, Middle): Yohannes Sood J Gender: Male Date of : 1950 Age: 72 Procedure Date: 01/22/2023 Procedure Type: Transthoracic Echocardiogram Location: OP Height: 180.34 cm Weight: 74.84 kg BSA: 1.94 m2 Heart Rate: bpm BP: 122 / 70 mmHg [facility] Supervisor: CHRISTOPHER Referring MD: Tim Dunbar MD Optical Laboratory Manager: Trever Moscoso MD Symptoms: I25.10 - Atherosclerotic heart disease of [place] coronary artery without... Study Quality: Adequate ECG Rhythm: Sinus Conclusions: - 1. Normal LV systolic function with LVEF of 55-60% with normal filling pattern 2. Mildly dilated left atrium 3. Fsml-hj-hwulrbly aortic stenosis next 4. Mildly dilated ascending aorta at 3.9 cm 5. Normal RV systolic pressure 6. No pericardial effusion Findings Left Ventricle Normal left ventricular size, thickness, and systolic function. The visually estimated ejection fraction is between 55-60%. Spectral Doppler is indicative of a normal filling pattern. Peak GLS is -18.1%, within acceptable limits. Right Ventricle Normal right ventricular cavity size and systolic function. Atria The left atrium is mildly dilated. There is no evidence of interatrial shunt. The right atrium is normal in size. Aortic Valve There is mild calcification of the aortic valve. There is mild thickening of the aortic valve. There is mild to moderate aortic valve stenosis. There is no aortic valve regurgitation. Mitral Valve There is mild anterior and posterior mitral leaflet thickening. There is mild mitral annular calcification. There is trace mitral valve regurgitation. There is no mitral valve stenosis. Pulmonic Valve The pulmonic valve was not well visualized. Tricuspid Valve Likely normal tricuspid valve structure and function. There is trace tricuspid valve regurgitation. The right ventricular systolic pressure is normal. The right ventricular systolic pressure is 28 mmHg. Normal right atrial pressure. There is no evidence of pulmonary hypertension. Great Vessels The pulmonary artery was not well visualized. There is mild dilatation of the ascending aorta measuring 3.90 cm. Venous The inferior vena cava is normal in size and collapses greater than 50% with inspiration. Pericardium/Pleural There is no evidence of pericardial effusion. Prior Study Comparison Changes noted compared to prior study dated: 12/20/2015. Hcem-pg-dkjslzul aortic stenosis present. Ascending aorta is mildly dilated Measurements 2D Linear Measurements IVSd: 1.02 0.6-0.9/0.6-1.0 cm LVIDd: 5.02 3.9-5.3/4.2-5.9 cm LVIDd Index: 2.59 2.4-3.2/2.2-3.1 cm/m2 LVIDs: 3.46 2.0-3.6 cm LVPWd: 0.94 0.7-1.1 cm LA Diam: 3.20 2.7-3.8/3.0-4.0 cm LAIDs Index: 1.65 1.5-2.3 cm/m2 LV Mass: 221.35 67-162/88-224 g LV Mass Index: 114.10 43-95/49-115 g/m2 LVOT Diam: 2.20 3.0+(-)1.3 cm 2D Systolic Function EF 4C: 57.20 >55% EF 2C: 61.10 >55% EF BiP: 59.90 >55% Mitral Valve MV Pk E: 0.91 MV PK A: 0.43 MV Decel Time: 224.00 E/A: 2.10 E'Lateral: 10.40 E'Medial: 7.62 E/E' Med: 12.00 E/E' Lat: 8.80 PHT: 66.00 MVA PHT: 3.33 Decel [place]: 4.07 Aortic Valve AoV Pk Jim: 2.92 AoV Mn Jim: 1.91 AoV VTI: 0.70 AoV Pk Grad: 34.00 Aov Mn Grad: 17.00 SANDY Cont.VTI: 1.45 LVOT LVOT Pk Jim: 1.16 LVOT Mn Jim: 0.70 LVOT VTI: 0.27 LVOT Pk Grad: 5.00 LVOT Mn Grad: 2.00 LVOT Diam: 2.20 LVOT Area: 3.80 Diastolic Function MV Pk E: 0.91 MV Pk A: 0.43 E/A: 2.10 E'Medial: 7.62 E/E' Med: 12.00 E' Laterial: 10.40 E/E' Lat: 8.80 Right Ventricle TAPSE (mm): 17.50 TVS' Jim: 10.20 Tricuspid Valve TR Pk Jim: 2.51 TR Pk Grad: 25.00 RA Press: 3.00 RVSP: 28.00 Great Vessels Aorta Sinus of Valsalva: 3.86 2.0-3.[address] [place]: 2.62 1.7-3.4 cm Ao Asc: 3.90 2.1-3.4 cm Updated in Other Vendor System with Status of Final Trever Moscoso MD electronically signed on 01/23/2023 2:19:30 PM with status of Final
== END ==
LOC: HO.CARD 14:57
PROVIDERS: PCP Internal Medicine; Visit Provider Internal Medicine
DX: I25.10 Atherosclerotic heart disease of native coronary artery without angina pectoris (principal); I48.92 Unspecified atrial flutter
CPT/HCPCS: 93306; 93356

== ENCOUNTER → 2023-02-12 09:55 | Outpatient (BNVA) | payer MEDICARE, SELFPAY | PROVIDERS: PCP Internal Medicine; Referring Provider Internal Medicine; Visit Provider Internal Medicine | DX: I48.92 Unspecified atrial flutter (principal); I25.10 Atherosclerotic heart disease of native coronary artery without angina pectoris; E11.65 Type 2 diabetes mellitus with hyperglycemia | CPT/HCPCS: 93005; 99212 ==

== ENCOUNTER → 2023-03-25 10:30 | Outpatient (BNVA) | payer MEDICARE, SELFPAY | PROVIDERS: PCP Internal Medicine; Visit Provider Dietitian, Registered | DX: E11.65 Type 2 diabetes mellitus with hyperglycemia (principal) | CPT/HCPCS: 97802 ==

== ENCOUNTER 2023-06-25 09:50 | Outpatient (REF) | payer MEDICARE, SELFPAY ==
[2023-06-25 10:48] LABS: MANUAL DIFF FLAG NO
[2023-06-25 10:56] LABS: Appearance Urine Clear; Basophils Percent Auto 0.4 % (0-2); Color Urine Yellow; Eosinophils Absolute Auto 0.2 X10*3/uL (0.0-0.4); Eosinophils Percent Auto 2.7 % (0-4); Glucose Urine UA >=1000 mg/dL (Negative); Hematocrit 46.6 % (42.0-52.0); Imm Gran Abs Auto 0.03 X10*3/uL (0.00-0.03); Imm Gran Pct Auto 0.4 % (0.0-0.4); Leukocyte Esterase Urine Negative (Negative); Lymphocytes Absolute Auto 1.8 X10*3/uL (1.2-4.9); Mean Corpuscular HGB Conc 32.2 g/dl (31.0-36.0); Mean Corpuscular Hemoglobin 29.5 pg (27.0-33.0); Mean Corpuscular Volume 91.6 fL (80.0-98.0); Mean Platelet Volume 10.9 fL (9.4-12.4); Monocytes Absolute Auto 0.7 X10*3/uL (0.1-1.2); Monocytes Percent Auto 7.9 % (2-11); Neutrophils Absolute Auto 5.7 x10*3/uL (2.0-8.3); Neutrophils Percent Auto 67.6 % (45-73); Nitrite Urine Negative (Negative); Platelet Count 226 X10*3/uL (160-400); Red Blood Count 5.09 X10*6/uL (4.60-5.80); Red Cell Distribution Width 13.2 % (11.0-16.0); Specific Gravity - Urine 1.015 (1.005-1.025); UMIC TRIGGER UACC YES; Urine Blood Negative (Negative); Urine Ketones Negative (Negative); Urine Protein Negative (Neg-Trace); White Blood Count 8.4 X10*3/uL (4.8-10.8)
[2023-06-25 11:25] LABS: Estimated Average Glucose 235 mg/dL; Hemoglobin A1c % 9.8 % (<6.0)
[2023-06-25 11:29] LABS: Creatinine Urine 64.32 mg/dL; Microalbum/Creatinine Ratio Ur 20.2 ug/mg cr (<30)
[2023-06-25 11:33] LABS: Bacteria Urine None Seen (None Seen); Hyaline Casts Urine 0-2 /LPF (0-2); Squamous Epithelial Cell Urine 0-2 /HPF (0-2); WBC Urine 0-5 /HPF (0-5)
[2023-06-25 15:22] LABS: Alanine Aminotransferase 12 U/L (0-40); Albumin Level 4.5 g/dL (3.5-5.0); Alkaline Phosphatase 93 U/L (39-117); Anion Gap 12 (12-20); Aspartate Amino Transferase 11 U/L (5-37); Bilirubin Total 0.8 mg/dL (0.0-1.0); Blood Urea Nitrogen 16 mg/dL (9-16); Calcium 9.9 mg/dL (8.4-10.2); Carbon Dioxide 26 mmol/L (22-29); Chloride 105 mmol/L (96-108); Cholesterol 122 mg/dL (<200); Estimated Glomerular Filt Rate > 60; Glucose Fasting 202 mg/dL (60-99); HDL Cholesterol 45 mg/dL (>40); LDL Cholesterol Calculated 66 mg/dL (<100); Potassium 4.1 mmol/L (3.3-5.1); Sodium 139 mmol/L (135-145); Total Protein 7.3 g/dL (6.5-8.0); Triglycerides 56 mg/dL (<150)
[2023-06-25 15:38] LABS: TSH reflex Free T4 0.67 uIU/mL (0.32-4.0); Vitamin D 25-OH Total 36.3 ng/mL (>30)
== END 2023-06-25 09:51 | disposition home or self-care (01) ==
LOC: HO.10HDL 09:50
PROVIDERS: Visit Provider Internal Medicine
DX: I10 Essential (primary) hypertension (principal); E11.9 Type 2 diabetes mellitus without complications; E55.9 Vitamin D deficiency, unspecified; E78.00 Pure hypercholesterolemia, unspecified
CPT/HCPCS: 36415; 80053; 80061; 81001; 81003; 82043; 82306; 82570; 83036; 84443; 85025

== ENCOUNTER 2023-09-23 09:06 | Outpatient (AMB) | payer MEDICARE, SELFPAY ==
--- NOTE | 2023-09-23 09:10 | MHC.AMNUTRGE ---
Intake VS Expanded 09/23/23 09:11 Height 5 ft 6 in Weight 176 lb 12.972 oz BMI 28.5 Intake Visit Reasons: DM2-CONFIRMED Allergies No Known Allergies [No Known Allergies*] Allergy (Verified 02/12/23 10:01) HPI Nutrition Presentation Details Pt presents for M and T follow-up for type 2 diabetes. Patient reports not monitoring blood glucose was of discomfort in fingers. Patient was advised to try a lower setting on the blood glucose monitoring lancet device, and monitor on the side the fingers versus tip of the finger. Patient reports he has been working on reducing total carbohydrates, reading food labels and choosing foods that have less carbs (example comparing breads, comparing cereals, comparing some snacks) Patient reports having 1-2a glasses of milk in place of the meal if not feeling hungry. Patient reports eating out more frequently , fast food meals ([facility]) has tuna sand a couple of times in the week He reports choosing snacks high in salt (chips, salted peanut butter crackers and the likes) food frequency fish : 2-3 times/wk fruits: 0-1/d vegetables : 5 times /wk (reports including salads) dairy: 4-5 serving/d Today we will discuss low-sodium food concepts in continuing to work on balancing meals Most Recent Diabetes Results: Microalb/Creat Ratio 20.2 ug/mg cr (<30) 06/25/23 Cholesterol 122 mg/dL (<200) 06/25/23 HDL Cholesterol 45 mg/dL (>40) 06/25/23 Triglycerides 56 mg/dL (<150) 06/25/23 Creatinine 1.03 mg/dL (0.5-1.4) 06/25/23 Blood Urea Nitrogen 16 mg/dL (9-16) 06/25/23 Sodium 139 mmol/L (135-145) 06/25/23 Potassium 4.1 mmol/L (3.3-5.1) 06/25/23 Chloride 105 mmol/L (96-108) 06/25/23 Carbon Dioxide 26 mmol/L (22-29) 06/25/23 Calcium 9.9 mg/dL (8.4-10.2) 06/25/23 AST 11 U/L (5-37) 06/25/23 ALT 12 U/L (0-40) 06/25/23 Total Protein 7.3 g/dL (6.5-8.0) 06/25/23 Albumin 4.5 g/dL (3.5-5.0) 06/25/23 [facility] Medical History (Updated 02/12/23 @ 10:25 by Tim Dunbar MD) Vitamin D deficiency Elevated PSA Benign prostatic hyperplasia Coronary artery disease Rectal pain Perianal cyst Diabetes mellitus Pure hypercholesterolemia Benign essential hypertension Surgical History History of colonoscopy (~08/26/19) Hx of CABG (~2004) Family History Father Colon cancer Mother No problems noted. Other Family history non-contributory Social History (Updated 02/12/23 @ 10:04 by Harper Trejo) Household Members: Significant Other Housing: Apartment Do you presently have visiting nurse or other home services: No Alcohol intake: never Patient Tobacco Use Status: Never used Tobacco Second Hand Smoke Exposure: Yes service: No Current occupational status: employed Cognitive needs: No Hearing needs: No Vision needs: Yes Assessment & Plan Assessment & Plan (1) Diabetes mellitus: Code(s): E11.9 - Type 2 diabetes mellitus without complications Qualifiers: Diabetes mellitus type: type 2 Diabetes mellitus [facility] insulin use: without intermediate frame tender use Diabetes mellitus complication status: with hyperglycemia Qualified Code(s): E11.65 - Type 2 diabetes mellitus with hyperglycemia Plan: USed wt : 74 kg (80 kg 09/2023) Est kcal needs as per MSJ: 1962 (40% carb, 30% protein/fat) Est fluid needs as per 25-30 ml/d: 1850 -2220 Est prot per day as per 1 g/kg bw: 74 Recommend fiber intake : 8-10 g per day and gradually increase to 35-38 g or as tolerated Recommend sodium intake per day : less than 2000 mg Educated patient on: ( R = reviewed V = verbalizes understanding N/R = needs review N/A = not applicable Food sources of carbohydrate, adequate serving sizes and its role in various health conditions: R V Differences between complex carbohydrates a simple carbohydrates, role of fiber in diet: R Differences between types of fats and role in diet (mono on saturated fat fatty acids, saturated fatty acids, trans fats): R low fat basic Food sources of sodium in salt and healthy modifications for heart health in kidney health: R Healthy plate method concept: R V Physical activity: Benefits a precaution: NR Hypoglycemia protocol (rule of 15): NR Dietary prevention of Hyperglycemia: R Patient Instructions: Work on reducing on sodium intake Choose a fruit or yogurt in place of chips or salted snacks see printed list of low sodium options Coding Level of Care Code Nutr Indiv Subseq (24142) Diagnoses Type 2 diabetes mellitus with hyperglycemia, without long-term current use of insulin E11.65 Diabetes mellitus type: type 2 Diabetes mellitus intermediate frame tender insulin use: without [facility] use Diabetes mellitus complication status: with hyperglycemia Time Spent (min) 30
[2023-09-23 09:11] VITALS: BMI 28.5
== END 2023-09-23 09:45 | disposition home or self-care (01) ==
LOC: HO.ENCR 09:06
PROVIDERS: PCP Internal Medicine; Visit Provider Dietitian, Registered
DX: E11.65 Type 2 diabetes mellitus with hyperglycemia (principal)

== ENCOUNTER → 2023-09-23 09:06 | Outpatient (BNVA) | payer MEDICARE, SELFPAY | PROVIDERS: PCP Internal Medicine; Visit Provider Dietitian, Registered | DX: E11.65 Type 2 diabetes mellitus with hyperglycemia (principal) | CPT/HCPCS: 97803 ==

== ENCOUNTER 2023-09-24 08:56 | Outpatient (AMB) | payer MEDICARE, SELFPAY ==
--- NOTE | 2023-09-24 09:05 | A.OFFPC_ITS ---
Vital Signs 09/24/23 09:06 Height 5 ft 6 in Weight 174 lb BMI 28.1 BP 124/78 Blood Pressure Location Rt brachial Position Sitting Pulse 61 Pulse Source Pulse Oximeter Pulse Oximetry (%) 97 Oxygen Delivery Method Room Air Intake Visit Reasons: sugar/feet beginning to swell Intake Note: Patient is here to follow up on DM, swelling of both feet. Headlight Adjuster Required: No Director Corporate Sales: Not Required per policy Accompanied by: Self / Same As Patient Allergies No Known Allergies [No Known Allergies*] Allergy (Verified 09/24/23 09:15) Medication List - Last Reconciled 09/24/23 by Dez Torres PA-C apixaban (Eliquis) 5 mg PO BID atorvastatin 80 mg PO DAILY cholecalciferol (vitamin D3) 50 mcg PO DAILY 90 days lisinopril 5 mg (1/2 x 10 mg) PO DAILY magnesium hydroxide (Dulcolax (magnesium hydroxide)) 1,200 mg PO BID-TID PRN metformin 1,000 mg PO BID 90 days metoprolol tartrate 50 mg See Protocol PO BID nitroglycerin 0.4 mg sublingual Q5M PRN sitagliptin phosphate (Januvia) 100 mg PO DAILY 90 days tamsulosin 0.4 mg PO DAILY Tobacco use date assessed: 09/24/23 Fall risk assessment: No Falls in past year Last assessed Fall Risk: 09/24/23 Dental Screening Dental Screen Date: 09/24/23 Did you have a dental visit in the last 12 months?: Yes Did you have a dental problem in the last 6 months where you did not have access to dental care?: No Was dental information given to patient?: Patient has dentist HPI sugar/feet beginning to swell HPI Details Patient is a 73-year-old male here today for problem visit. This is the 1st time meeting this 73-year-old male with a past medical history significant for coronary artery disease bypass in 2001, a flutter, type 2 diabetes. Over the last 2 weeks he has noted swelling in his lower extremities in a 10 lb weight gain. He denies any shortness of breath, orthopnea, chest pain or heart palpitations. [facility] Medical History (Updated 09/24/23 @ 09:20 by Dez Torres PA-C) Vitamin D deficiency Elevated PSA Benign prostatic hyperplasia Coronary artery disease Rectal pain Perianal cyst Diabetes mellitus Pure hypercholesterolemia Benign essential hypertension Surgical History History of colonoscopy (~08/26/19) Hx of CABG (~2004) Family History Father Colon cancer Mother No problems noted. Other Family history non-contributory Social History Household Members: Significant Other Housing: Apartment Do you presently have visiting nurse or other home services: No Alcohol intake: never Patient Tobacco Use Status: Never used Tobacco e-Cigarette/Vaping Use: Never Used Second Hand Smoke Exposure: Yes service: No Current occupational status: employed Cognitive needs: No Hearing needs: No Vision needs: Yes Questionnaire Thrive Questionnaire Date Thrive assessed: 01/20/23 LANDY-7 AMB Questionnaire LANDY-7 Date LANDY - 7 assessed: 01/20/23 Source: Developed by Drs. Zeus Harvey, Lidia Sen, Abraham Avila and colleagues, with an educational shamika from [employer]. Review of Systems Const Denies headache(s) Eyes Denies loss of vision ENT Denies vertigo, Denies dizziness, Denies headache(s) and Denies sore throat Card Denies chest pain, Denies leg edema and Denies lightheadedness Resp Denies cough, Denies hemoptysis and Denies wheezing GI Denies abdominal pain, Denies melena, Denies constipation, Denies diarrhea and Denies vomiting Denies dysuria, Denies urinary frequency and Denies urinary urgency Musc Denies arthralgias, Denies joint swelling, Denies numbness and Denies tingling Neuro Denies Abnormal speech present, Denies behavioral changes, Denies vertigo, Gal[place] es dizziness, Denies headache(s), Denies loss of vision, Denies memory loss, Denies numbness and Denies tingling Psych Denies anxiety, Denies behavioral changes, Denies depression, Denies memory loss and Denies panic attacks Anil/Lymph Denies easy bleeding and Denies easy bruising Aller/Immun Denies wheezing Physical exam (Primary Care) Vital Signs: Last Vital Signs Pulse 61 09/24/23 09:06 BP 124/78 09/24/23 09:06 Pulse Ox 97 09/24/23 09:06 Oxygen Delivery Method Room Air 09/24/23 09:06 BMI result Body Mass Index 28.1 Tobacco/Smoking Status: Tobacco use Status Tobacco use date assessed 09/24/23 09/24/23 09:13 Patient Tobacco Use Status Never used Tobacco 09/24/23 09:13 e-Cigarette/Vaping Use Never Used 09/24/23 09:13 Thrive Assessment: Date of Thrive Assessment Date Thrive assessed 01/20/23 09/24/23 09:13 Const General: healthy appearing, no acute distress, alert and awake Nutritional Appearance: well nourished Orientation/consciousness: oriented to person, oriented to place and oriented to time HENMT Ears: TM's normal bilaterally General nose exam: Normal nasal mucous membranes and turbinates present Eyes Conjunctivae: conjunctivae normal Sclerae: sclerae normal Pupils: Equal, round and reactive pupils present Neck Neck: Yes no lymphadenopathy and Yes no JVD Thyroid: Thyroid normal Carotids: no bruits Resp Effort & Inspection: normal respiratory effort and not tachypneic Auscultation: no crackles, no rales, no rhonchi and no wheezes Cardio Rate: regular rate Rhythm: regular rhythm Heart sounds: no murmurs and normal S1 and S2 GI Palpation (GI): Soft to palpation, nontender, no hepatomegaly and no splenomegaly Auscultation: normal bowel sounds Skin General skin exam: no rashes or lesions noted and dry skin Neuro General: oriented to person, oriented to place and oriented to time Cranial nerves: Yes Equal, round and reactive pupils present Speech: No Abnormal speech present Gait exam (Neuro): Normal gait present Motor exam (neuro): no tremor noted Extrem Other: 2+ pitting edema to level of mid pena Right upper extremity: full ROM Left upper extremity: full ROM Right lower extremity: full ROM and edema Left lower extremity: full ROM and edema Psych Mental Status: mental status grossly normal Speech and movement: Normal speech and movement present Affect: normal affect Attitude: cooperative Thought process: Normal thought process present Results AMB Hemoglobin A1c AMB Hemoglobin A1c 10.3 % Last Edit by JAYA Yang on 09/24/23 09:2 3 Results Reviewed Results Reviewed: Laboratory Last Values Hgb A1c (Clinic) 10.3 % (4.0-6.0) H 09/24/23 09:05 Assessment and Plan Assessment & Plan (1) Lower extremity edema: Code(s): R60.0 - Localized edema Plan: Noted lower extremity edema over the last 2 months. Physical exam showing 2+ pitting edema to level of mid pena. He otherwise denies shortness of breath, orthopnea, heart palpitations or chest pain. Will supply patient with 2 weeks of Lasix. Advised on low-sodium diet. Diab etes is uncontrolled as well thus will start Farxiga as has been found helpful in patients with cardiovascular disease.. (2) Diabetes mellitus: Code(s): E11.9 - Type 2 diabetes mellitus without complications Qualifiers: Diabetes mellitus complication status: with hyperglycemia Diabetes mellitus adjunct faculty for medical terminology insulin use: without adjunct faculty for medical terminology use Diabetes mellitus type: type 2 Qualified Code(s): E11.65 - Type 2 diabetes mellitus with hyperglycemia Plan: As above patient's A1c today at 10.3. He would work on diabetic diet. He is willing to start for seek a if able to be covered through insurance. Also advised on possibly starting insulin therapy though patient declines at this time. (3) Coronary artery disease: Comment: KONG to LAD, SVG to ramus, OM, posterior lateral branch and RCA in 2004 Code(s): I25.10 - Atherosclerotic heart disease of [place] coronary artery without angina pectoris Qualifiers: Associated angina: without angina Coronary Disease-Associated Artery/Lesion type: [place] artery [place] vs. transplanted heart: [place] heart Qualified Code(s): I25.10 - Atherosclerotic heart disease of [place] coronary artery without angina pectoris Plan: Follows Cardiology. Continues on high potency statin and anticoagulation. He otherwise denies any signs of unstable angina. Orders: Orders AMB Hemoglobin A1c Today E11.9 - Type 2 diabetes mellitus without complications Basic Metabolic Panel Today R60.0 - Localized edema Complete Blood Count no Diff Today R60.0 - Localized edema NT-proBNP Today R60.0 - Localized edema Medications: New furosemide 20 mg PO DAILY 14 days 14 tabs 0RF R60.0 - Localized edema dapagliflozin propanediol (Farxiga) 10 mg PO DAILY 30 days 30 tabs 1RF E11.9 - Type 2 diabetes mellitus without complications, I25.10 - Atherosclerotic heart disease of [place] coronary artery without angina pectoris compr.stocking,knee,long,large as directed 2 ea 0RF R60.0 - Localized edema Coding Level of Care Code Est Pt Level 4 (72744) Diagnoses Lower extremity edema R60.0 Type 2 diabetes mellitus with hyperglycemia, without long-term current use of insulin E11.65 Diabetes mellitus complication status: with hyperglycemia Diabetes mellitus adjunct faculty for medical terminology insulin use: without adjunct faculty for medical terminology use Diabetes mellitus type: type 2 Coronary artery disease involving [place] coronary artery of [place] heart without angina pectoris I25.10 Associated angina: without angina Coronary Disease-Associated Artery/Lesion type: [place] artery [place] vs. transplanted heart: [place] heart
[2023-09-24 09:06] VITALS: BP 124/78; PULSE 61; O2SAT 97; BMI 28.1
== END 2023-09-24 09:41 | disposition home or self-care (01) ==
PROVIDERS: PCP Internal Medicine; Visit Provider Physician Assistant
DX: R60.0 Localized edema (principal); E11.65 Type 2 diabetes mellitus with hyperglycemia; I25.10 Atherosclerotic heart disease of native coronary artery without angina pectoris; E11.9 Type 2 diabetes mellitus without complications
CPT/HCPCS: 83036; 99214

== ENCOUNTER 2023-10-15 10:18 | Outpatient (AMB) | payer MEDICARE, SELFPAY ==
--- NOTE | 2023-10-15 10:19 | MHC.PC.OV ---
Vital Signs 10/15/23 10:22 Height 5 ft 6 in Weight 170 lb 6 oz BMI 27.5 BP 148/90 H Blood Pressure Location Lt brachial Position Sitting Respiration 17 Pulse 80 Pulse Source Palpation Intake Visit Reasons: f/u lower extremity edema Regional Economist Required: No Accompanied by: Self / Same As Patient Allergies No Known Allergies [No Known Allergies*] Allergy (Verified 10/15/23 10:38) Medication List - Last Reconciled 10/15/23 by Dez Torres PA-C apixaban (Eliquis) 5 mg PO BID atorvastatin 80 mg PO DAILY cholecalciferol (vitamin D3) 50 mcg PO DAILY 90 days compr.stocking,knee,long,large as directed dapagliflozin propanediol (Farxiga) 10 mg PO DAILY 30 days furosemide 20 mg PO DAILY 14 days lisinopril 5 mg (1/2 x 10 mg) PO DAILY magnesium hydroxide (Dulcolax (magnesium hydroxide)) 1,200 mg PO BID-TID PRN metformin 1,000 mg PO BID 90 days metoprolol tartrate 50 mg See Protocol PO BID nitroglycerin 0.4 mg sublingual Q5M PRN sitagliptin phosphate (Januvia) 100 mg PO DAILY 90 days tamsulosin 0.4 mg PO DAILY Tobacco use date assessed: 10/15/23 Fall risk assessment: No Falls in past year Last assessed Fall Risk: 10/15/23 Dental Screening Dental Screen Date: 10/15/23 Did you have a dental visit in the last 12 months?: Yes Did you have a dental problem in the last 6 months where you did not have access to dental care?: No Was dental information given to patient?: Patient has dentist HPI f/u lower extremity edema HPI Details Patient is a 73-year-old male here today for a follow-up visit. Has been having bilateral lower extremity edema over the last 2 months. At last visit labs ordered though has not been done. Unfortunately has not started any medication we discussed at last visit. Noted 4 lb weight loss since last office visit (unclear if this is due to uncontrolled diabetes). He agrees to do labs today. We did also discuss his elevated A1c at 10.3 and his symptoms OF POLYDIPSIA AND POLYURIA. STRONGLY ADVISED ON STARTING INSULIN THOUGH PATIENT WOULD LIKE TO HOLD OFF AT THIS TIME. We did discuss G LP1 patient is somewhat interested in this. [facility] Medical History (Updated 09/24/23 @ 09:20 by Dez Torres PA-C) Vitamin D deficiency Elevated PSA Benign prostatic hyperplasia Coronary artery disease Rectal pain Perianal cyst Diabetes mellitus Pure hypercholesterolemia Benign essential hypertension Surgical History History of colonoscopy (~08/26/19) Hx of CABG (~2004) Family History Father Colon cancer Mother No problems noted. Other Family history non-contributory Social History Household Members: Significant Other Housing: Apartment Do you presently have visiting nurse or other home services: No Alcohol intake: never Patient Tobacco Use Status: Never used Tobacco e-Cigarette/Vaping Use: Never Used Second Hand Smoke Exposure: Yes service: No Current occupational status: employed Cognitive needs: No Hearing needs: No Vision needs: Yes Questionnaire PHQ-9 Over the last 2 weeks, how often have you been bothered by any of the following problems? 1. Little interest or pleasure in doing things: not at all 2. Feeling down, depressed, or hopeless: not at all 3. Trouble falling or staying asleep, or sleeping too much: not at all 4. Feeling tired or having little energy: not at all 5. Poor appetite or overeating: not at all 6. Feeling bad about yourself - or that you are a failure or have let yourself or your family down: not at all 7. Trouble concentrating on things, such as reading the newspaper or watching television: not at all 8. Moving or speaking so slowly that other people could have noticed. Or the opposite - being so fidgety or restless that you have been moving around a lot more than usual: not at all 9. Thoughts that you would be better off or of hurting yourself in some way: not at all Total score: 0 Depression Screening Interpretation: Negative Depression Screening Done: Yes 58574 - PHQ-9 Billing: Yes Source: Developed by Drs. Zeus Harvey, Lidia Sen, Abraham Avila and colleagues, with an educational shamika from [employer] Thrive Questionnaire Date Thrive assessed: 10/15/23 I am a: Patient What is your living situation today?: I have a steady place to live Within the past 12 months, did the food you bought not last and you didn't have the money to get more?: Never true Within the past 12 months, did you worry whether your food would run out before you got money to buy more?: Never true Do you have trouble paying for medicines?: No Do you have trouble getting transportation to medical appointments?: No Do you have trouble paying your heating and electricity bill?: No Do you have trouble taking care of your child, family member or friend?: No Do you have trouble with day-to-day activities such as bathing, preparing meals, shopping, managing finances, etc.?: No Are you currently unemployed and looking for a job?: No Are you interested in more education?: No Please select the resources that you would like help with: None Currently or been in a relationship where the following occur: no concerns reported AUDIT C Alcohol Use Questionnaire (AUDIT-C) 1. How often do you have a drink containing alcohol?: Never 3. How often do you have six or more drinks on one occasion?: Never Total Score: 0 LANDY-7 AMB Questionnaire LANDY-7 Date LANDY - 7 assessed: 10/15/23 Feeling nervous, anxious, or on edge: 0 = Not at all Not being able to stop or control worryin = Not at all Worrying too much about different things: 0 = Not at all Trouble relaxin = Not at all Being so restless that it is hard to sit still: 0 = Not at all Becoming easily annoyed or irritable: 0 = Not at all Feeling afraid as if something awful might happen: 0 = Not at all Total LANDY-7 score (0-4 normal; 5-9 mild; 10-14 moderate; 15-21 severe): 0 Source: Developed by Drs. Zeus Harvey, Lidia Sen, Abraham Avila and colleagues, with an educational shamika from [employer] LANDY-7 Assessment Billing LANDY-7 Assessment Tool: LANDY-7 Assessment 39279 Review of Systems Const Denies headache(s) Eyes Denies loss of vision ENT Denies vertigo, Denies dizziness, Denies headache(s) and Denies sore throat Card Denies chest pain, Denies leg edema and Denies lightheadedness Resp Denies cough, Denies hemoptysis and Denies wheezing GI Denies abdominal pain, Denies melena, Denies constipation, Denies diarrhea and Denies vomiting Denies dysuria, Denies urinary frequency and Denies urinary urgency Musc Denies arthralgias, Denies joint swelling, Denies numbness and Denies tingling Neuro Denies Abnormal speech present, Denies behavioral changes, Denies vertigo, Denies dizziness, Denies headache(s), Denies loss of vision, Denies memory loss, Denies numbness and Denies tingling Psych Denies anxiety, Denies behavioral changes, Denies depression, Denies memory loss and Denies panic attacks Anil/Lymph Denies easy bleeding and Denies easy bruising Aller/Immun Denies wheezing Physical exam (Primary Care) Vital Signs: Last Vital Signs Pulse 80 10/15/23 10:22 Resp 17 10/15/23 10:22 BP 148/90 H 10/15/23 10:22 BMI result Body Mass Index 27.5 Tobacco/Smoking Status: Tobacco use Status Tobacco use date assessed 10/15/23 10/15/23 10:21 Patient Tobacco Use Status Never used Tobacco 10/15/23 10:21 e-Cigarette/Vaping Use Never Used 10/15/23 10:21 PHQ-9: PHQ-9 Score PHQ-9: Total score 0 10/15/23 10:40 Depression Screening Interpretation: Negative Thrive Assessment: Date of Thrive Assessment Date Thrive assessed 10/15/23 10/15/23 10:21 Currently or been in a relationship where the following occur: no concerns reported Const General: healthy appearing, no acute distress, alert and awake Nutritional Appearance: well nourished Orientation/consciousness: oriented to person, oriented to place and oriented to time HENMT Ears: TM's normal bilaterally General nose exam: Normal nasal mucous membranes and turbinates present Eyes Conjunctivae: conjunctivae normal Sclerae: sclerae normal Pupils: Equal, round and reactive pupils present Neck Neck: Yes no lymphadenopathy and Yes no JVD Thyroid: Thyroid normal Carotids: no bruits Resp Effort & Inspection: normal respiratory effort and not tachypneic Auscultation: no crackles, no rales, no rhonchi and no wheezes Cardio Rate: regular rate Rhythm: regular rhythm Heart sounds: no murmurs and normal S1 and S2 GI Palpation (GI): Soft to palpation, nontender, no hepatomegaly and no splenomegaly Auscultation: normal bowel sounds Skin General skin exam: no rashes or lesions noted and dry skin Neuro General: oriented to person, oriented to place and oriented to time Cranial nerves: Yes Equal, round and reactive pupils present Speech: No Abnormal speech present Gait exam (Neuro): Normal gait present Motor exam (neuro): no tremor noted Extrem Right upper extremity: full ROM Left upper extremity: full ROM Right lower extremity: full ROM and edema Left lower extremity: full ROM and edema Psych Mental Status: mental status grossly normal Speech and movement: Normal speech and movement present Affect: normal affect Attitude: cooperative Thought process: Normal thought process present Assessment and Plan Assessment & Plan (1) Lower extremity edema: Code(s): R60.0 - Localized edema Plan: Noted lower extremity edema over the last 2 months. Unfortunately has not started diuretic. Continues to 2+ pitting edema in bilateral lower extremities. He agrees to start taking Lasix (2) Diabetes mellitus: Code(s): E11.9 - Type 2 diabetes mellitus without complications Qualifiers: Diabetes mellitus complication status: with hyperglycemia Diabetes mellitus extermination inspector insulin use: without prison use Diabetes mellitus type: type 2 Qualified Code(s): E11.65 - Type 2 diabetes mellitus with hyperglycemia Plan: As above patient's A1c today at 10.3. He would work on diabetic diet. He was prescribed Farxiga though has not started taking this med/. Does report some polydipsia polyuria. We did discuss the possibility of starting daily insulin though he would like to hold off for now. Also spoke about Trulicity or Ozempic and he is somewhat interested in that. He wants to follow-up in 2 weeks and at that time ache a decision about injectable diabetic therapy. (3) Coronary artery disease: Comment: KONG to LAD, SVG to ramus, OM, posterior lateral branch and RCA in 2004 Code(s): I25.10 - Atherosclerotic heart disease of [place] coronary artery without angina pectoris Qualifiers: Associated angina: without angina Coronary Disease-Associated Artery/Lesion type: [place] artery [place] vs. transplanted heart: [place] heart Qualified Code(s): I25.10 - Atherosclerotic heart disease of [place] coronary artery without angina pectoris Plan: Follows Cardiology. Continues on high potency statin and anticoagulation. He otherwise denies any signs of unstable angina. Coding Level of Care Code Est Pt Level 3 (44173) Diagnoses Lower extremity edema R60.0 Type 2 diabetes mellitus with hyperglycemia, without long-term current use of insulin E11.65 Diabetes mellitus complication status: with hyperglycemia Diabetes mellitus extermination inspector insulin use: without extermination inspector use Diabetes mellitus type: type 2 Coronary artery disease involving [place] coronary artery of [place] heart without angina pectoris I25.10 Associated angina: without angina Coronary Disease-Associated Artery/Lesion type: [place] artery [place] vs. transplanted heart: [place] heart Additional Codes LANDY-7 Assessment Billing - LANDY-7 Assessment Tool: LANDY-7 Assessment 36664 ([id number])
[2023-10-15 10:22] VITALS: BP 148/90; PULSE 80; RESP 17; BMI 27.5
== END 2023-10-15 10:57 | disposition home or self-care (01) ==
PROVIDERS: PCP Internal Medicine; Visit Provider Physician Assistant
DX: R60.0 Localized edema (principal); E11.65 Type 2 diabetes mellitus with hyperglycemia; I25.10 Atherosclerotic heart disease of native coronary artery without angina pectoris
CPT/HCPCS: 99213

== ENCOUNTER 2023-10-15 11:11 | Outpatient (REF) | payer MEDICARE, SELFPAY ==
[2023-10-22 21:09] LABS: NT-proBNP 986 pg/mL (<125)
== END 2023-10-15 11:12 | disposition home or self-care (01) ==
LOC: HO.10HDL 11:11
PROVIDERS: Visit Provider Physician Assistant
DX: R60.0 Localized edema (principal)
CPT/HCPCS: 36415; 80048; 83880; 85027

== ENCOUNTER 2023-10-27 15:20 | Outpatient (AMB) | payer MEDICARE, SELFPAY ==
--- NOTE | 2023-10-27 15:21 | A.OFFPC_ITS ---
Intake Visit Reasons: Follow-up diabetes (okay to double book) Health Promotion Specialist Required: No Accompanied by: Self / Same As Patient Allergies No Known Allergies [No Known Allergies*] Allergy (Verified 10/27/23 15:24) Medication List - Last Reconciled 10/27/23 by Dez Torres PA-C apixaban (Eliquis) 5 mg PO BID atorvastatin 80 mg PO DAILY cholecalciferol (vitamin D3) 50 mcg PO DAILY 90 days compr.stocking,knee,long,large as directed dapagliflozin propanediol (Farxiga) 10 mg PO DAILY 30 days furosemide 20 mg PO DAILY 14 days lisinopril 5 mg (1/2 x 10 mg) PO DAILY magnesium hydroxide (Dulcolax (magnesium hydroxide)) 1,200 mg PO BID-TID PRN metformin 1,000 mg PO BID 90 days metoprolol tartrate 50 mg See Protocol PO BID nitroglycerin 0.4 mg sublingual Q5M PRN sitagliptin phosphate (Januvia) 100 mg PO DAILY 90 days tamsulosin 0.4 mg PO DAILY Tobacco use date assessed: 10/15/23 Fall risk assessment: No Falls in past year Last assessed Fall Risk: 10/27/23 Dental Screening Dental Screen Date: 10/27/23 Did you have a dental visit in the last 12 months?: Yes Did you have a dental problem in the last 6 months where you did not have access to dental care?: No Was dental information given to patient?: Patient has dentist HPI Follow-up diabetes (okay to double book) HPI Details Patient is a 73-year-old male being evaluated today via telephone. Patient has a past medical history significant for coronary artery disease, a flutter, type 2 diabetes. Originally a few weeks ago reported lower extremity edema and was sent for labs and noted pro BNP being elevated. Started on Lasix to which he reports has been helpful in reducing his pedal edema. Also found to have an elevated random blood sugar and A1c elevated at 10.3. Patient was willing to start Farxiga 10 mg though as still noted elevated blood sugars at home. We did discuss starting daily insulin though he is not willing to do so at this time. He is now willing to try GLP 1 thus will send in Trulicity 0.75 mg. As far as the heart failure symptoms would advised to continue Lasix 20 mg Q every other day Laboratory Tests 09/24/23 10/15/23 10/15/23 09:05 11:15 11:15 Random Glucose 297 H Hgb A1c (Clinic) 10.3 H NT-Pro-B Natriuret Pep 986 H PFSH Medical History (Updated 09/24/23 @ 09:20 by Dez Torres PA-C) Vitamin D deficiency Elevated PSA Benign prostatic hyperplasia Coronary artery disease Rectal pain Perianal cyst Diabetes mellitus Pure hypercholesterolemia Benign essential hypertension Surgical History History of colonoscopy (~08/26/19) Hx of CABG (~2004) Family History Father Colon cancer Mother No problems noted. Other Family history non-contributory Social History Household Members: Significant Other Housing: Apartment Do you presently have visiting nurse or other home services: No Alcohol intake: never Patient Tobacco Use Status: Never used Tobacco e-Cigarette/Vaping Use: Never Used Second Hand Smoke Exposure: Yes service: No Current occupational status: employed Cognitive needs: No Hearing needs: No Vision needs: Yes Questionnaire Thrive Questionnaire Date Thrive assessed: 10/15/23 LANDY-7 AMB Questionnaire LANDY-7 Date LANDY - 7 assessed: 10/15/23 Source: Developed by Drs. Zeus Harvey, Lidia Sen, Abraham Avila and colleagues, with an educational shamika from [employer]. Review of Systems Const Reports headache(s) Eyes Denies loss of vision ENT Denies vertigo, Denies dizziness, Reports headache(s) and Denies sore throat Card Denies chest pain, Reports leg edema and Denies lightheadedness Resp Denies cough, Denies hemoptysis and Denies wheezing GI Denies abdominal pain, Denies melena, Denies constipation, Denies diarrhea and Denies vomiting Denies dysuria, Denies urinary frequency and Denies urinary urgency Musc Denies arthralgias, Denies joint swelling, Denies numbness and Denies tingling Neuro Denies behavioral changes, Denies vertigo, Denies dizziness, Reports headache(s), Denies loss of vision, Denies memory loss, Denies numbness and Denies tingling Psych Denies anxiety, Denies behavioral changes, Denies depression, Denies memory loss and Denies panic attacks Anil/Lymph Denies easy bleeding and Denies easy bruising Aller/Immun Denies wheezing Physical exam (Primary Care) Tobacco/Smoking Status: Tobacco use Status Tobacco use date assessed 10/15/23 10/27/23 15:23 Patient Tobacco Use Status Never used Tobacco 10/27/23 15:23 e-Cigarette/Vaping Use Never Used 10/27/23 15:23 Thrive Assessment: Date of Thrive Assessment Date Thrive assessed 10/15/23 10/27/23 15:23 Telehealth Telehealth Location of provider rendering services: practice address Location of patient: address on file Patient Identification confirmed using: Name, : Yes Telehealth method: voice only Patient verbally consented to treatment: Yes Patient verbally consented to billing insurance company: Yes Patient informed of any privacy concerns related to visit: Yes Minutes spent on Phone/Video with Pt.: 11 Assessment and Plan Assessment & Plan (1) Diabetes mellitus: Code(s): E11.9 - Type 2 diabetes mellitus without complications Qualifiers: Diabetes mellitus type: type 2 Diabetes mellitus usp insulin use: without manager terminal use Diabetes mellitus complication status: with hyperglycemia Qualified Code(s): E11.65 - Type 2 diabetes mellitus with hyperglycemia Plan: Most recent A1c- 10.3. Has started Farxiga 10 mg in addition to his max dose metformin a 1000 b.i.d.. Still reports blood sugars have been elevated at home. Does report some polydipsia polyuria. He is now willing to start GLP 1. Will send [facility] in and try to have him in for nurse visit on Education on subcutaneous injection. (2) Lower extremity edema: Code(s): R60.0 - Localized edema Plan: ? Heart failure symptoms in the setting of uncontrolled type 2 diabetes. Advised to continue on Lasix 20 mg every other day (3) Coronary artery disease: Comment: KONG to LAD, SVG to ramus, OM, posterior lateral branch and RCA in 2004 Code(s): I25.10 - Atherosclerotic heart disease of [place] coronary artery without angina pectoris Qualifiers: Coronary Disease-Associated Artery/Lesion type: [place] artery [place] vs . transplanted heart: [place] heart Associated angina: without angina Qualified Code(s): I25.10 - Atherosclerotic heart disease of [place] coronary artery without angina pectoris Plan: Follows Cardiology. Continues on high potency statin and anticoagulation. He otherwise denies any signs of unstable angina. ProBNP elevated ( > 500). Since starting Lasix he reports his pedal edema has been better. Advised to continue on Lasix 20 mg every other day. Likely needs cardiology follow-up and repeat echocardiogram. Will order echocardiogram Orders: Orders CA echo transthoracic complete Today I25.10 - Atherosclerotic heart disease of [place] coronary artery without angina pectoris Medications: New dulaglutide (Trulicity) 0.75 mg (0.5 mL) subcut QWEEK 4 weeks 2 mL 1RF E11.65 - Type 2 diabetes mellitus with hyperglycemia Changed From furosemide 20 mg PO DAILY 14 days 14 tabs 0RF R60.0 - Localized edema To furosemide 20 mg PO Q OTHER DAY 30 days 15 tabs 1RF R60.0 - Localized edema Discontinued sitagliptin phosphate (Januvia) Discontinued Reason: Doctor's Order 100 mg PO DAILY 90 days 90 tabs 1RF Coding Level of Care Code Tele Est Pt Level 4 (77311) Diagnoses Type 2 diabetes mellitus with hyperglycemia, without long-term current use of insulin E11.65 Diabetes mellitus type: type 2 Diabetes mellitus manager terminal insulin use: without usp use Diabetes mellitus complication status: with hyperglycemia Lower extremity edema R60.0 Coronary artery disease involving [place] coronary artery of [place] heart without angina pectoris I25.10 Coronary Disease-Associated Artery/Lesion type: [place] artery [place] vs. transplanted heart: [place] heart Associated angina: without angina
== END 2023-10-27 15:58 | disposition home or self-care (01) ==
PROVIDERS: PCP Internal Medicine; Visit Provider Physician Assistant
DX: E11.65 Type 2 diabetes mellitus with hyperglycemia (principal); R60.0 Localized edema; I25.10 Atherosclerotic heart disease of native coronary artery without angina pectoris
CPT/HCPCS: 99442

== ENCOUNTER → 2023-11-10 15:01 | Outpatient (REF) | payer MEDICARE, SELFPAY ==
--- NOTE | 2023-11-10 15:08 | CA_ITS ---
Transthoracic Echocardiogram Patient (Last, First, Middle): Yohannes Sood J Gender: Male Date of : 1950 Age: 73 Procedure Date: 11/10/2023 Procedure Type: Transthoracic Echocardiogram Location: OP Height: 177.8 cm Weight: 74.84 kg BSA: 1.92 m2 Heart Rate: bpm BP: 126 / 84 mmHg News Department Intern: CHRISTOPHER Referring MD: Dez Torres PA-C Nurse Companion: Trever Moscoso MD Symptoms: I25.10 - Atherosclerotic heart disease of [place] coronary artery without... Study Quality: Adequate ECG Rhythm: Sinus Conclusions: - 1. Mildly reduced LV ejection fraction of 45-50% with impaired relaxation filling pattern and underlying regional wall motion abnormality consistent with ischemic cardiomyopathy 2. [id number] aortic stenosis 3. Normal RV systolic pressure 4. Mildly dilated ascending aorta at 4 cm 5. No gross pericardial effusion Findings Left Ventricle Normal left ventricular cavity size. There is normal left ventricular wall thickness. The left ventricular systolic function is mildly decreased. The visually estimated ejection fraction is between 45-50%. Spectral Doppler is indicative of an impaired relaxation filling pattern. E/E prime ratio is between 8 and 15 consistent with indeterminate filling pressures. Peak GLS is -15%, which is mildly reduced. Wall Motion Rest Echo Findings The mid inferolateral segment is hypokinetic. The basal inferior and basal inferolateral segments are akinetic. All other scored wall segments showed normal motion. Right Ventricle Normal right ventricular cavity size and systolic function. Atria The left atrium is mildly dilated. There is no evidence of interatrial shunt. The right atrium is likely dilated. Aortic Valve There is mild calcification of the aortic valve. There is mild thickening of the aortic valve. There is mild to moderate aortic valve stenosis. The mean gradient is 13 mmHg. The aortic valve area is 1.15 cm2. There is no aortic valve regurgitation. Mitral Valve There is mild anterior and posterior mitral leaflet thickening. There is trace mitral valve regurgitation. There is no mitral valve stenosis. Pulmonic Valve The pulmonic valve is likely normal. There is trace pulmonic valve regurgitation. Tricuspid Valve Normal tricuspid valve structure. There is mild tricuspid valve regurgitation. The right ventricular systolic pressure is normal. The right ventricular systolic pressure is 22 mmHg. Normal right atrial pressure. There is no evidence of pulmonary hypertension. Great Vessels The pulmonary artery was not well visualized. There is mild dilatation of the ascending aorta measuring 4.00 cm. Moderate plaque is seen in the sino tubular ridge. Venous The inferior vena cava is normal in size and collapses greater than 50% with inspiration. Pericardium/Pleural There is no evidence of pericardial effusion. Measurements 2D Linear Measurements IVSd: 1.03 0.6-0.9/0.6-1.0 cm LVIDd: 4.86 3.9-5.3/4.2-5.9 cm LVIDd Index: 2.53 2.4-3.2/2.2-3.1 cm/m2 LVIDs: 4.12 2.0-3.6 cm LVPWd: 0.92 0.7-1.1 cm LA Diam: 3.50 2.7-3.8/3.0-4.0 cm LAIDs Index: 1.82 1.5-2.3 cm/m2 LV Mass: 208.64 67-162/88-224 g LV Mass Index: 108.67 43-95/49-115 g/m2 LVOT Diam: 2.10 3.0+(-)1.3 cm 2D Systolic Function EF 4C: 43.80 >55% EF 2C: 51.20 >55% EF BiP: 48.80 >55% Mitral Valve MV Pk E: 0.62 MV PK A: 0.53 MV Decel Time: 231.00 E/A: 1.20 E'Lateral: 12.80 E'Medial: 6.85 E/E' Med: 9.00 E/E' Lat: 4.80 PHT: 68.00 MVA PHT: 3.24 Decel [place]: 2.67 Aortic Valve AoV Pk Jim: 2.41 AoV Mn Jim: 1.65 AoV VTI: 0.53 AoV Pk Grad: 23.00 Aov Mn Grad: 13.00 SANDY Cont.VTI: 1.15 LVOT LVOT Pk Jim: 0.93 LVOT Mn Jim: 0.52 LVOT VTI: 0.18 LVOT Pk Grad: 3.00 LVOT Mn Grad: 1.00 LVOT Diam: 2.10 LVOT Area: 3.46 Diastolic Function MV Pk E: 0.62 MV Pk A: 0.53 E/A: 1.20 E'Medial: 6.85 E/E' Med: 9.00 E' Laterial: 12.80 E/E' Lat: 4.80 Right Ventricle TAPSE (mm): 18.40 TVS' Jim: 8.27 Tricuspid Valve TR Pk Jim: 2.16 TR Pk Grad: 19.00 RA Press: 3.00 RVSP: 22.00 Great Vessels Aorta Sinus of Valsalva: 4.05 2.0-3.[address] [place]: 2.85 1.7-3.4 cm Ao Asc: 4.00 2.1-3.4 cm Updated in Other Vendor System with Status of Final Trever Moscoso MD electronically signed on 11/12/2023 3:17:14 PM with status of Final
== END ==
LOC: HO.CARD 15:01
PROVIDERS: PCP Internal Medicine; Visit Provider Physician Assistant
DX: I25.10 Atherosclerotic heart disease of native coronary artery without angina pectoris (principal)
CPT/HCPCS: 93306; 93356

== ENCOUNTER → 2023-11-10 15:08 | Outpatient (BNV) | payer MEDICARE, SELFPAY | PROVIDERS: PCP Internal Medicine; Visit Provider Internal Medicine Cardiovascular Disease | DX: I25.10 Atherosclerotic heart disease of native coronary artery without angina pectoris (principal) | CPT/HCPCS: 93306 ==

== ENCOUNTER 2023-12-09 14:09 | Outpatient (AMB) | payer MEDICARE, SELFPAY ==
--- NOTE | 2023-12-09 14:13 | A.OFFPC_ITS ---
Vital Signs 12/09/23 14:14 Height 5 ft 6 in Weight 163 lb 6 oz BMI 26.4 BP 116/58 L Blood Pressure Location Lt brachial Position Sitting Respiration 17 Pulse 70 Pulse Source Pulse Oximeter Pulse Oximetry (%) 100 Oxygen Delivery Method Room Air Intake Visit Reasons: Follow-up diabetes Supply Chain Analyst Required: No Accompanied by: Self / Same As Patient Allergies No Known Allergies [No Known Allergies*] Allergy (Verified 12/09/23 14:23) Medication List - Last Reconciled 12/09/23 by Dez Torres PA-C apixaban (Eliquis) 5 mg PO BID atorvastatin 80 mg PO DAILY cholecalciferol (vitamin D3) 50 mcg PO DAILY 90 days compr.stocking,knee,long,large as directed dapagliflozin propanediol (Farxiga) 10 mg PO DAILY 30 days dulaglutide (Trulicity) 0.75 mg (0.5 mL) subcut QWEEK 4 weeks furosemide 20 mg PO Q OTHER DAY 30 days lisinopril 5 mg (1/2 x 10 mg) PO DAILY magnesium hydroxide (Dulcolax (magnesium hydroxide)) 1,200 mg PO BID-TID PRN metformin 1,000 mg PO BID 90 days metoprolol tartrate 50 mg See Protocol PO BID nitroglycerin 0.4 mg sublingual Q5M PRN tamsulosin 0.4 mg PO DAILY Tobacco use date assessed: 10/15/23 Fall risk assessment: No Falls in past year Last assessed Fall Risk: 12/09/23 Dental Screening Dental Screen Date: 12/09/23 Did you have a dental visit in the last 12 months?: Yes Did you have a dental problem in the last 6 months where you did not have access to dental care?: No Was dental information given to patient?: Patient has dentist HPI Follow-up diabetes HPI Details Patient is a 73-year-old male being evaluated today via telephone. Patient has a past medical history significant for coronary artery disease, a flutter, type 2 diabetes. CHF: Recently seem to have a decompensation in his heart failure. Originally a few weeks ago reported lower extremity edema and was sent for labs and noted pro BNP being elevated. Started on Lasix 20 mg every other day to which he reports has been helpful in reducing his pedal edema. Also found to have an elevated random blood sugar and A1c elevated at 10.3. Of note does have a history of a flutter that he reports happened once and was on Eliquis. He was not consistent with Eliquis and self discontinued this medication. Not interested in restarting Eliquis at this time will speak with his rn integrity Type 2 diabetes: Continues on metformin a 1000 b.i.d. and has started Farxiga 10 mg daily. Also started on Trulicity 0.75 once weekly. He does not regularly check his sugars and is interested in a continues glucose monitor. As far as the heart failure symptoms would advised to continue Lasix 20 mg Q every other day [facility] Medical History (Updated 12/10/23 @ 07:49 by Dez Torres PA-C) Vitamin D deficiency Elevated PSA Benign prostatic hyperplasia Coronary artery disease Rectal pain Perianal cyst Diabetes mellitus Pure hypercholesterolemia Benign essential hypertension Surgical History History of colonoscopy (~08/26/19) Hx of CABG (~2004) Family History Father Colon cancer Mother No problems noted. Other Family history non-contributory Social History Household Members: Significant Other Housing: Apartment Do you presently have visiting nurse or other home services: No Alcohol intake: never Patient Tobacco Use Status: Never used Tobacco e-Cigarette/Vaping Use: Never Used Second Hand Smoke Exposure: Yes service: No Current occupational status: employed Cognitive needs: No Hearing needs: No Vision needs: Yes Questionnaire Thrive Questionnaire Date Thrive assessed: 10/15/23 LANDY-7 AMB Questionnaire LANDY-7 Date LANDY - 7 assessed: 10/15/23 Source: Developed by Drs. Zeus Harvey, Lidia Sen, Abraham Avila and colleagues, with an educational shamika from [employer]. Review of Systems Const Denies headache(s) Eyes Denies loss of vision ENT Denies vertigo, Denies dizziness, Denies headache(s) and Denies sore throat Card Denies chest pain, Denies leg edema and Denies lightheadedness Resp Denies cough, Denies hemoptysis and Denies wheezing GI Denies abdominal pain, Denies melena, Denies constipation, Denies diarrhea and Denies vomiting Denies dysuria, Denies urinary frequency and Denies urinary urgency Musc Denies arthralgias, Denies joint swelling, Denies numbness and Denies tingling Neuro Denies Abnormal speech present, Denies behavioral changes, Denies vertigo, Denies dizziness, Denies headache(s), Denies loss of vision, Denies memory loss, Denies numbness and Denies tingling Psych Denies anxiety, Denies behavioral changes, Denies depression, Denies memory loss and Denies panic attacks Anil/Lymph Denies easy bleeding and Denies easy bruising Aller/Immun Denies wheezing Physical exam (Primary Care) Vital Signs: Last Vital Signs Pulse 70 12/09/23 14:14 Resp 17 12/09/23 14:14 BP 116/58 L 12/09/23 14:14 Pulse Ox 100 12/09/23 14:14 Oxygen Delivery Method Room Air 12/09/23 14:14 BMI result Body Mass Index 26.4 Tobacco/Smoking Status: Tobacco use Status Tobacco use date assessed 10/15/23 12/09/23 14:13 Patient Tobacco Use Status Never used Tobacco 12/09/23 14:13 e-Cigarette/Vaping Use Never Used 12/09/23 14:13 Thrive Assessment: Date of Thrive Assessment Date Thrive assessed 10/15/23 12/09/23 14:13 Const General: healthy appearing, no acute distress, alert and awake Nutritional Appearance: well nourished Orientation/consciousness: oriented to person, oriented to place and oriented to time HENMT Ears: TM's normal bilaterally General nose exam: Normal nasal mucous membranes and turbinates present Eyes Conjunctivae: conjunctivae normal Sclerae: sclerae normal Pupils: Equal, round and reactive pupils present Neck Neck: Yes no lymphadenopathy and Yes no JVD Thyroid: Thyroid normal Carotids: no bruits Resp Effort & Inspection: normal respiratory effort and not tachypneic Auscultation: no crackles, no rales, no rhonchi and no wheezes Cardio Rate: regular rate Rhythm: regular rhythm Heart sounds: no murmurs and normal S1 and S2 GI Palpation (GI): Soft to palpation, nontender, no hepatomegaly and no splenomegaly Auscultation: normal bowel sounds Skin General skin exam: no rashes or lesions noted and dry skin Neuro General: oriented to person, oriented to place and oriented to time Cranial nerves: Yes Equal, round and reactive pupils present Speech: No Abnormal speech present Gait exam (Neuro): Normal gait present Motor exam (neuro): no tremor noted Extrem Right upper extremity: full ROM Left upper extremity: full ROM Right lower extremity: full ROM; no edema Left lower extremity: full ROM; no edema Psych Mental Status: mental status grossly normal Speech and movement: Normal speech and movement present Affect: normal affect Attitude: cooperative Thought process: Normal thought process present Assessment and Plan Assessment & Plan (1) Diabetes mellitus: Code(s): E11.9 - Type 2 diabetes mellitus without complications Qualifiers: Diabetes mellitus complication status: with hyperglycemia Diabetes mellitus intermediate frame tender insulin use: without mcfp use Diabetes mellitus type: type 2 Qualified Code(s): E11.65 - Type 2 diabetes mellitus with hyperglycemia Plan: As per HPI patient has uncontrolled type 2 diabetes. Has made med adjustments and started Farxiga and Trulicity as he does seem to have Congestive heart failure as well. He reports he has been feeling better and less lower extremity edema. Not regularly checking his sugars does would like to start a continues glucose monitor. Goal A1c is to be below 7 (2) Coronary artery disease: Comment: KONG to LAD, SVG to ramus, OM, posterior lateral branch and RCA in 2004 Code(s): I25.10 - Atherosclerotic heart disease of [place] coronary artery without angina pectoris Qualifiers: Associated angina: without angina Coronary Disease-Associated Artery/Lesion type: [place] artery [place] vs. transplanted heart: [place] heart Qualified Code(s): I25.10 - Atherosclerotic heart disease of [place] coronary artery without angina pectoris Plan: Patient continues to follow cardiology. Has upcoming appointment this summer. Denies any chest pain, shortness for breath, or any exertional symptoms. Most recent lipid panel showing excellent control his total cholesterol and LDL. (3) Atrial flutter: Code(s): I48.92 - Unspecified atrial flutter Qualifiers: Atrial flutter type: typical Qualified Code(s): I48.3 - Typical atrial flutter Plan: Patient apparently does have a history of a flutter at 1 time. Seems to be in regular rhythm currently. He was placed on Eliquis 5 mg b.i.d. though was not consistent with taking this medication. He is concerned about starting this medication as he feels he does not needed at this time. Will speak with his rn integrity about further need for anticoagulation. (4) CHF (congestive heart failure), NYHA class II: Code(s): I50.9 - Heart failure, unspecified Qualifiers: Congestive heart failure type: diastolic Congestive heart failure chronicity: unspecified Qualified Code(s): I50.30 - Unspecified diastolic (congestive) heart failure Plan: Patient does seem to have now compensated Congestive heart failure. Was seen a few weeks ago bilateral lower extremity edema and some fatigue. He was started on Lasix every other day and now feeling much better with less lower extremity edema. Orders: Orders Lipid Panel 12/09/23 I25.10 - Atherosclerotic heart disease of [place] coronary artery without angina pectoris Complete Blood Count no Diff 12/09/23 E11.65 - Type 2 diabetes mellitus with hyperglycemia Comprehensive [place]. Panel Fast 12/09/23 E11.65 - Type 2 diabetes mellitus with hyperglycemia Hemoglobin A1c 12/09/23 E11.65 - Type 2 diabetes mellitus with hyperglycemia NT-proBNP 12/09/23 I25.10 - Atherosclerotic heart disease of [place] coronary artery without angina pectoris Medications: New blood-glucose meter,continuous (FreeStyle Ирина 3 [place]) As directed 1 ea 1RF E11.65 - Type 2 diabetes mellitus with hyperglycemia blood-glucose sensor (FreeStyle Ирина 3 Sensor device) As directed 1 ea 6RF E11.65 - Type 2 diabetes mellitus with hyperglycemia Refilled dapagliflozin propanediol (Farxiga) 10 mg PO DAILY 30 days 30 tabs 3RF E11.9 - Type 2 diabetes mellitus without complications, I25.10 - Atherosclerotic heart disease of [place] coronary artery without angina pectoris atorvastatin 80 mg PO DAILY 90 tabs 1RF I25.10 - Atherosclerotic heart disease of [place] coronary artery without angina pectoris metformin 1,000 mg PO BID 90 days 180 tabs 1RF E11.65 - Type 2 diabetes mellitus with hyperglycemia Coding Level of Care Code Est Pt Level 4 (69256) Diagnoses Type 2 diabetes mellitus with hyperglycemia, without long-term current use of insulin E11.65 Diabetes mellitus complication status: with hyperglycemia Diabetes mellitus mcfp insulin use: without intermediate frame tender use Diabetes mellitus type: type 2 Coronary artery disease involving [place] coronary artery of [place] heart without angina pectoris I25.10 Associated angina: without angina Coronary Disease-Associated Artery/Lesion type: [place] artery [place] vs. transplanted heart: [place] heart Typical atrial flutter I48.3 Atrial flutter type: typical Diastolic congestive heart failure, NYHA class 2, unspecified congestive heart failure chronicity I50.30 Congestive heart failure type: diastolic Congestive heart failure chronicity: unspecified
[2023-12-09 14:14] VITALS: BP 116/58; PULSE 70; RESP 17; O2SAT 100; BMI 26.4
== END 2023-12-09 14:42 | disposition home or self-care (01) ==
PROVIDERS: PCP Internal Medicine; Visit Provider Physician Assistant
DX: E11.65 Type 2 diabetes mellitus with hyperglycemia (principal); I25.10 Atherosclerotic heart disease of native coronary artery without angina pectoris; I48.3 Typical atrial flutter; I50.30 Unspecified diastolic (congestive) heart failure
CPT/HCPCS: 99214

== ENCOUNTER 2024-02-18 08:13 | Outpatient (AMB) | payer MEDICARE, SELFPAY ==
[2024-02-18 08:15] VITALS: BP 110/60; PULSE 62; BMI 26.0
--- NOTE | 2024-02-18 08:15 | MHC.OFFVIS ---
Vital Signs 02/18/24 08:15 Height 5 ft 6 in Weight 161 lb 6.054 oz BMI 26.0 BP 110/60 Blood Pressure Location Lt brachial Position Sitting Pulse 62 Intake Visit Reasons: 1 yr f/up [employer] Web Developer Required: No Accompanied by: Self / Same As Patient Allergies No Known Allergies [No Known Allergies*] Allergy (Verified 12/09/23 14:23) Medication List - Last Reconciled 02/18/24 by Tim Dunbar MD apixaban (Eliquis) 5 mg PO BID atorvastatin 80 mg PO DAILY blood-glucose meter,continuous (FreeStyle Ирина 3 [place]) As directed blood-glucose sensor (FreeStyle Ирина 3 Sensor device) As directed cholecalciferol (vitamin D3) 50 mcg PO DAILY 90 days compr.stocking,knee,long,large as directed dulaglutide (Trulicity) 0.75 mg (0.5 mL) subcut QWEEK 4 weeks furosemide 20 mg PO Q OTHER DAY 30 days lisinopril 5 mg (1/2 x 10 mg) PO DAILY metformin 1,000 mg PO BID 90 days metoprolol tartrate 50 mg See Protocol PO BID nitroglycerin 0.4 mg sublingual Q5M PRN tamsulosin 0.4 mg PO DAILY HPI Comments Details: Yohannes returns for follow-up. He was seen around 2015 in our clinic but then not followed up for a long time. He came to the ER for palpitations known to be in atrial flutter with rapid rate. Then converted to sinus with IV Cardizem. Overall, he feels fine. No specific complaints. History of coronary bypass surgery around 2004. Overall, he feels good. He states he developed some leg swelling and received diuretics and got better. No other complaints otherwise. [facility] Medical History (Updated 02/18/24 @ 08:39 by Tim Dunbar MD) Vitamin D deficiency Elevated PSA Benign prostatic hyperplasia Coronary artery disease Rectal pain Perianal cyst Diabetes mellitus Pure hypercholesterolemia Benign essential hypertension Surgical History History of colonoscopy (~08/26/19) Hx of CABG (~2004) Family History Father Colon cancer Mother No problems noted. Other Family history non-contributory Social History Household Members: Significant Other Housing: Apartment Do you presently have visiting nurse or other home services: No Alcohol intake: never Patient Tobacco Use Status: Never used Tobacco e-Cigarette/Vaping Use: Never Used Second Hand Smoke Exposure: Yes service: No Current occupational status: employed Cognitive needs: No Hearing needs: No Vision needs: Yes Review of Systems Const Denies chills, Denies fatigue, Denies fever(s), Denies frequent falls, Denies weakness, Denies weight gain and Denies weight loss ENT Denies dizziness Card Denies chest pain, Denies leg edema, Denies lightheadedness, Denies palpitations, Denies dyspnea and Denies dyspnea on exertion Resp Denies cough, Denies dyspnea and Denies dyspnea on exertion GI Denies hematochezia Musc Denies abnormal gait, Denies muscle weakness, Denies numbness, Denies radiating pain into limb and Denies tingling Neuro Denies abnormal gait, Denies dizziness, Denies frequent falls, Denies numbness, Denies tingling and Denies weakness Endo Denies fatigue and Denies palpitations Physical Exam Vital Signs: BMI result Body Mass Index 26.0 Const General: comfortable and no acute distress Orientation/consciousness: patient oriented x3 HEENT Other: Unremarkable Head: Yes normal to inspection Neck Neck: Yes normal visual inspection Chest Chest palpation & inspection: normal inspection of the chest Resp Auscultation: clear to auscultation bilaterally Cardio Palpation: normal PMI Heart sounds: S1 normal heart sound present, S2 normal heart sound present, no gallops, no murmurs and no rubs GI Palpation (GI): Soft to palpation Back/Spine/Pelvis Other: unremarkable Skin General skin exam: no rashes or lesions noted Neuro General: patient oriented x3 Extrem General: Yes normal to inspection Psych Mental Status: mental status grossly normal Office Procedures EKG Details: EKG with underlying sinus rhythm at 62/Min; leftward axis; voltage criteria for LVH; [place] [id number], Complete Assessment & Plan Assessment & Plan (1) Atrial flutter: Code(s): I48.92 - Unspecified atrial flutter Category: Medical Qualifiers: Atrial flutter type: typical Qualified Code(s): I48.3 - Typical atrial flutter Plan: Continue metoprolol. Continue Eliquis. (2) Coronary artery disease: Code(s): I25.10 - Atherosclerotic heart disease of [place] coronary artery without angina pectoris Category: Medical Qualifiers: Associated angina: without angina Coronary Disease-Associated Artery/Lesion type: [place] artery [place] vs. transplanted heart: [place] heart Qualified Code(s): I25.10 - Atherosclerotic heart disease of [place] coronary artery without angina pectoris Plan: History of CABG 2004. In the most recent echocardiogram, LVEF is 45-50% with wall motion abnormalities. May obtain exercise stress perfusion imaging study for further evaluation. Continue statins. Controlled lipids. (3) Ischemic cardiomyopathy: Code(s): I25.5 - Ischemic cardiomyopathy Category: Medical Plan: Mild ischemic cardiomyopathy on echo. Possibly some heart failure symptoms as he had leg swelling. Dependent edema also possible. Diuretics as necessary. (4) Diabetes mellitus: Code(s): E11.9 - Type 2 diabetes mellitus without complications Category: Medical Qualifiers: Diabetes mellitus complication status: with hyperglycemia Diabetes mellitus care home insulin use: without care home use Diabetes mellitus type: type 2 Qualified Code(s): E11.65 - Type 2 diabetes mellitus with hyperglycemia Plan: Hemoglobin A1c is quite high at 10.3%. Listed to be on metformin, Trulicity. Possibly add SGLT2 inhibitors. Orders: Orders CA stress test Today R07.2 - Precordial pain NM cardiolite stress test Today R07.2 - Precordial pain Coding Level of Care Code Est Pt Level 4 (52522) Diagnoses Typical atrial flutter I48.3 Atrial flutter type: typical Coronary artery disease involving [place] coronary artery of [place] heart without angina pectoris I25.10 Associated angina: without angina Coronary Disease-Associated Artery/Lesion type: [place] artery [place] vs. transplanted heart: [place] heart Ischemic cardiomyopathy I25.5 Type 2 diabetes mellitus with hyperglycemia, without long-term current use of insulin E11.65 Diabetes mellitus complication status: with hyperglycemia Diabetes mellitus buttermaker continuous churn insulin use: without buttermaker continuous churn use Diabetes mellitus type: type 2 CPT Codes EKG - CPT: 39991-[id number], Complete ([id number])
== END 2024-02-18 08:37 | disposition home or self-care (01) ==
PROVIDERS: Visit Provider Internal Medicine
DX: I48.3 Typical atrial flutter (principal); I25.10 Atherosclerotic heart disease of native coronary artery without angina pectoris; I25.5 Ischemic cardiomyopathy; E11.65 Type 2 diabetes mellitus with hyperglycemia
CPT/HCPCS: 93010; 99214

== ENCOUNTER → 2024-02-18 08:13 | Outpatient (BNVA) | payer MEDICARE, SELFPAY | PROVIDERS: Visit Provider Internal Medicine | DX: I48.3 Typical atrial flutter (principal); I25.10 Atherosclerotic heart disease of native coronary artery without angina pectoris; I25.5 Ischemic cardiomyopathy; I10 Essential (primary) hypertension; E11.65 Type 2 diabetes mellitus with hyperglycemia | CPT/HCPCS: 93005; 99212 ==

== ENCOUNTER 2024-04-01 16:28 | Emergency (ER) | payer MEDICARE, SELFPAY ==
[2024-04-01 16:42] VITALS: BP 155/85; PULSE 86; RESP 18; TEMP 36.4; O2SAT 99; BMI 22.8
--- NOTE | 2024-04-01 16:42 | ED.GENADULT ---
HPI - General Adult General Chief complaint: Urogenital-Male Stated complaint: Difficulty voiding with burning sensation Source: patient Mode of arrival: ambulatory Limitations: no limitations History of Present Illness ED Provider: Zoey Taylor PA-C HPI narrative: Patient is a 74 year old assigned male at with a history of DM and CHF presenting to the emergency department today with difficulty urinating. Patient states that over the last few hours he has had a difficult time urinating as well as pain with urination when he does go. Patient denies any dizziness, lightheadedness, abdominal pain, nausea, vomiting, fever, chills, blurry vision, double vision, loss of vision, chest pain, difficulty breathing, shortness of breath, back pain, night sweats, blood in his urine or stool, syncope or a near syncopal episode, recent trauma or falls, bowel incontinence, bladder incontinence, or any other complaints at this time. Onset (ago): hour(s) Relieving factors: none Exacerbating factors: none Associated symptoms: denies other symptoms Treatments prior to arrival: none Related Data Previous Rx's ?Medication ?Instructions ?Recorded apixaban 5 mg tablet (Eliquis) 5 mg PO BID #60 tabs 01/10/23 compr.stocking,knee,long,large #2 ea 09/24/23 furosemide 20 mg tablet 20 mg PO Q OTHER DAY 30 days #15 10/27/23 tabs atorvastatin 80 mg tablet 80 mg PO DAILY #90 tabs 12/09/23 blood-glucose meter,continuous #1 ea 12/09/23 (FreeStyle Ирина 3 [place]) blood-glucose sensor (FreeStyle #1 ea 12/09/23 Ирина 3 Sensor device) metformin 1,000 mg tablet 1,000 mg PO BID 90 days #180 tabs 12/09/23 dulaglutide 0.75 mg/0.5 mL 0.75 mg (0.5 mL) subcut QWEEK 4 12/28/23 subcutaneous pen injector weeks #2 mL (Trulicity) nitroglycerin 0.4 mg sublingual 0.4 mg sublingual Q5M PRN Angina 01/06/24 tablet #25 tabs lisinopril 10 mg tablet 5 mg (1/2 x 10 mg) PO DAILY #90 01/30/24 tabs tamsulosin 0.4 mg capsule 0.4 mg PO DAILY #90 caps 01/30/24 cholecalciferol (vitamin D3) 50 50 mcg PO DAILY 90 days #90 caps 03/16/24 mcg (2,000 unit) capsule metoprolol tartrate 50 mg tablet 50 mg PO BID #60 tabs 03/16/24 Allergies Allergy/AdvReac Type Severity Reaction Status Date / Time No Known Allergies Allergy Verified 04/01/24 16:43 [No Known Allergies*] Review of Systems Constitutional: Constitutional: Reports no additional constitutional complaints, Denies chills, Denies fever(s) and Denies night sweats Eyes: Eyes: Reports no additional eye complaints, Denies blurry vision, Denies change in vision, Denies diplopia, Denies eye discharge, Denies loss of vision and Denies eye pain ENT: Denies dizziness Cardiovascular: Cardiovascular: Reports no additional cardiovascular complaints, Denies chest pain, Denies lightheadedness, Denies Loss of Consciousness and Denies dyspnea Respiratory: Respiratory: Reports no additional respiratory complaints and Denies dyspnea Gastrointestinal: Gastrointestinal: Reports no additional gastrointestinal complaints, Denies abdominal pain, Denies melena, Denies hematochezia, Denies change in bowel habits and Denies change in stool character Genitourinary: Genitourinary: Reports no additional male genitourinary complaints, Denies hematuria, Reports oliguria, Reports difficulty urinating and Reports dysuria Musculoskeletal: Musculoskeletal: Reports no additional musculoskeletal complaints, Denies numbness and Denies tingling Neurologic: Denies dizziness, Denies loss of vision, Denies numbness and Denies tingling Psychiatric: Psychiatric: Reports no additional psychiatric complaints Endocrine: Endocrine: Reports no additional endocrine complaints Hematologic/Lymphatic: Hematologic/Lymphatic: Reports no additional hematologic/lymphatic complaints Allergic/Immunologic: Allergic/Immunologic: Reports no additional allergic/immunologic complaints [facility] Past Medical History Attestation statement: The following information was validated with the patient. Source: old records reviewed and nursing notes reviewed Medical History Vitamin D deficiency Elevated PSA Benign prostatic hyperplasia Coronary artery disease Rectal pain Perianal cyst Diabetes mellitus Pure hypercholesterolemia Benign essential hypertension Surgical History History of colonoscopy (~08/26/19) Hx of CABG (~2004) Family History Family History Father Colon cancer Mother No problems noted. Other Family history non-contributory Social History Social History Household Members: Significant Other Housing: Apartment Do you presently have visiting nurse or other home services: No Alcohol intake: never Patient Tobacco Use Status: Never used Tobacco e-Cigarette/Vaping Use: Never Used Second Hand Smoke Exposure: Yes Advance Directives: No Advance Directives Information Provided: No Do you have a plan to hurt others: No Plan service: No Current occupational status: employed Cognitive needs: No Hearing needs: No Vision needs: Yes Physical Exam ED Vital Signs: Vital Signs - 24 hr 04/01/24 16:42 Temperature 97.6 F Pulse Rate 86 Respiratory Rate 18 Blood Pressure 155/85 H Pulse Oximetry 99 Oxygen Delivery Method Room Air BMI result Body Mass Index 22.8 Const General: cooperative, no acute distress, alert and awake Nutritional Appearance: well nourished Orientation/consciousness: patient oriented x3 Limitations: no limitations HENMT Head: Yes normal to inspection and Yes atraumatic Ears: hearing grossly normal bilaterally and external ears normal General nose exam: Normal external nose present, no nasal discharge noted and no epistaxis Face and sinus: Yes normal facial exam, No abrasion and No laceration Mouth: Normal oral and palatal mucosa present, no drooling and no muffled voice Eyes General: appearance normal, both eyes and all related structures Periorbital: periorbital findings normal Eyelids: Yes eyelids normal Conjunctivae: conjunctivae normal Pupils: Equal, round and reactive pupils present EOM: EOMs intact bilaterally Neck Neck: Yes normal visual inspection, Yes full ROM and Yes no lymphadenopathy Chest Chest palpation & inspection: normal inspection of the chest Resp Effort & Inspection: normal respiratory effort and able to speak in complete sentences GI Inspection: Yes normal to inspection Neuro General: patient oriented x3 and moves all extremities Cranial nerves: Yes Equal, round and reactive pupils present Cognition (Neuro): normal cognition Motor exam (neuro): 5/5 motor strength present throughout Sensory Exam: Normal double simultaneous stimulation for sensation Coordination: [id number] test normal Extrem General: Yes normal to inspection, Yes full ROM and Yes capillary refill normal Psych Appearance: grossly normal Mental Status: mental status grossly normal Affect: normal affect Attitude: cooperative Thought process: Normal thought process present Thought content: Normal thought content present Insight: Good insight present (Psych) Course Course Course Narrative: RME performed by Zoey Taylor PA-C. Patient is a 74 year old assigned male at presenting to the emergency department with urinary retention and burning. Patient states he has having increased difficulty urinating and when he does, he is having burning with urination. Detailed physical exam and review of systems are deferred to the muffler hand. Patient placed back in the waiting room pending room availability. Medical Decision Making Medical Decision Making MDM Narrative: Patient is a 74 year old assigned male at with a history of CHF and DM presenting to the emergency department today with urinary retention and dysuria. Patient's limited physical exam performed in triage was unremarkable. Patient left the department without completing treatment. Patient left the department before myself or any of the other emergency department clinicians could explain to or review with the patient; physical exam findings, test results, need or lack there of for additional testing, need or lack there of for a procedure to be performed, need or lack there of for hospital admission / transfer, need or lack there of for prescription medication, treatment options, or a treatment plan. Differential Diagnosis Differential Diagnoses: The differential diagnosis associated with the presentation includes Urinary retention UTI Admission/Observation Consideration of admission/observation: Escalation of care including admission/observation considered Patient would have been admitted to the hospital had he completed his work up and it had any findings where hospital admission was appropriate, his clinical presentation warranted hospital admission, had myself or any other emergency mirror department supervisor had the ability to discuss need or lack there of for hospital admission, and the patient hadn't left the department without completing treatment. Discharge Plan Discharge Clinical Impression: Difficulty urinating Patient Disposition: Left W/O Completing Treatment Prescriptions: No Action Trulicity 0.75 mg/0.5 mL pen injector 0.75 mg subcut QWEEK 28 Days Qty: 2 1RF nitroglycerin 0.4 mg tablet, sublingual 0.4 mg sublingual Q5M PRN (Reason: Angina) Qty: 25 1RF Rx Instructions: every 5 minutes tamsulosin 0.4 mg capsule 0.4 mg PO DAILY Qty: 90 0RF lisinopril 10 mg tablet 5 mg PO DAILY Qty: 90 0RF metoprolol tartrate 50 mg tablet 50 mg PO BID Qty: 60 1RF Protocol: Hold for SBP/HR < HOLD for SBP < : 90 HOLD for HR < : 60 cholecalciferol (vitamin D3) 50 mcg (2,000 unit) capsule 50 mcg PO DAILY 90 Days Qty: 90 3RF Eliquis 5 mg Tablet 5 mg PO BID Qty: 60 1RF (DME) compr.stocking,knee,long,large Misc See Rx Instructions .Route Qty: 2 0RF Rx Instructions: as directed furosemide 20 mg tablet 20 mg PO Q OTHER DAY 30 Days Qty: 15 1RF (DME) FreeStyle Ирина 3 [place] Misc See Rx Instructions .Route Qty: 1 1RF Rx Instructions: As directed (DME) FreeStyle Ирина 3 Sensor Device See Rx Instructions .Route Qty: 1 6RF Rx Instructions: As directed atorvastatin 80 mg tablet 80 mg PO DAILY Qty: 90 1RF metformin 1,000 mg tablet 1,000 mg PO BID 90 Days Qty: 180 1RF Discharge Date/Time: 04/01/24 18:31
== END 2024-04-01 18:31 | disposition left against medical advice (07) ==
PROVIDERS: Emergency Provider Emergency Medicine; PCP Internal Medicine
DX: R33.9 Retention of urine, unspecified (principal); Z79.899 Other long term (current) drug therapy
CPT/HCPCS: 51798; 99281; 99283

== ENCOUNTER 2024-04-04 09:34 | Outpatient (REF) | payer MEDICARE, SELFPAY ==
[2024-04-04 11:11] LABS: Hematocrit 39.6 % (42.0-52.0); Hemoglobin 13.4 g/dl (14.0-18.0); Mean Corpuscular HGB Conc 33.8 g/dl (31.0-36.0); Mean Corpuscular Hemoglobin 30.9 pg (27.0-33.0); Mean Corpuscular Volume 91.2 fL (80.0-98.0); Mean Platelet Volume 10.4 fL (9.4-12.4); Platelet Count 270 X10*3/uL (160-400); Red Blood Count 4.34 X10*6/uL (4.60-5.80); Red Cell Distribution Width 13.3 % (11.0-16.0); White Blood Count 10.6 X10*3/uL (4.8-10.8)
[2024-04-04 11:21] LABS: Estimated Average Glucose 180 mg/dL; Hemoglobin A1c % 7.9 % (<6.0)
[2024-04-04 11:33] LABS: Alanine Aminotransferase 13 U/L (0-40); Albumin Level 3.9 g/dL (3.5-5.0); Alkaline Phosphatase 62 U/L (39-117); Anion Gap 15 (12-20); Aspartate Amino Transferase 10 U/L (5-37); Bilirubin Total 0.5 mg/dL (0.0-1.0); Blood Urea Nitrogen 25 mg/dL (9-16); Calcium 9.1 mg/dL (8.4-10.2); Carbon Dioxide 28 mmol/L (22-29); Chloride 99 mmol/L (96-108); Cholesterol 110 mg/dL (<200); Estimated Glomerular Filt Rate > 60; Glucose Fasting 205 mg/dL (60-99); HDL Cholesterol 39 mg/dL (>40); LDL Cholesterol Calculated 58 mg/dL (<100); Potassium 4.7 mmol/L (3.3-5.1); Sodium 137 mmol/L (135-145); Total Protein 6.6 g/dL (6.5-8.0); Triglycerides 69 mg/dL (<150)
[2024-04-08 16:18] LABS: NT-proBNP 285 pg/mL (<450)
== END 2024-04-04 09:35 | disposition home or self-care (01) ==
LOC: HO.10HDL 09:34
PROVIDERS: Visit Provider Physician Assistant
DX: E11.65 Type 2 diabetes mellitus with hyperglycemia (principal); I25.10 Atherosclerotic heart disease of native coronary artery without angina pectoris
CPT/HCPCS: 36415; 80053; 80061; 83036; 83880; 85027

== ENCOUNTER 2024-04-07 15:43 | Outpatient (AMB) | payer MEDICARE, SELFPAY ==
[2024-04-07 15:53] VITALS: BP 82/58; PULSE 70; O2SAT 100; BMI 21.8
--- NOTE | 2024-04-07 15:53 | A.OFFPC_ITS ---
Vital Signs 04/07/24 15:53 Height 5 ft 10 in Weight 152 lb BMI 21.8 BP 82/58 L Blood Pressure Location Lt brachial Position Sitting Pulse 70 Pulse Source Pulse Oximeter Pulse Oximetry (%) 100 Oxygen Delivery Method Room Air Intake Visit Reasons: f/u DMII/ CAD Jigger Machine Operator: Not Required per policy Accompanied by: Self / Same As Patient Allergies No Known Allergies [No Known Allergies*] Allergy (Verified 04/07/24 16:12) Medication List - Last Reconciled 04/07/24 by Dez Torres PA-C apixaban (Eliquis) 5 mg PO BID atorvastatin 80 mg PO DAILY blood-glucose meter,continuous (FreeStyle Ирина 3 [place]) As directed blood-glucose sensor (FreeStyle Ирина 3 Sensor device) As directed cholecalciferol (vitamin D3) 50 mcg PO DAILY 90 days compr.stocking,knee,long,large as directed dapagliflozin propanediol (Farxiga) 10 mg PO DAILY dulaglutide (Trulicity) 0.75 mg (0.5 mL) subcut QWEEK 4 weeks furosemide 20 mg PO Q OTHER DAY 30 days lisinopril 5 mg (1/2 x 10 mg) PO DAILY metformin 1,000 mg PO BID 90 days metoprolol tartrate 50 mg See Protocol PO BID nitroglycerin 0.4 mg sublingual Q5M PRN tamsulosin 0.4 mg PO DAILY Tobacco use date assessed: 10/15/23 Fall risk assessment: No Falls in past year Last assessed Fall Risk: 04/07/24 Dental Screening Dental Screen Date: 12/09/23 HPI f/u DMII/ CAD HPI Details Patient is a 73-year-old male here today for follow-up visit. Patient has a past medical history significant for coronary artery disease, a flutter, type 2 diabetes. Recently seen at the ER for mnot being able to urinate. Was found to have urinary retention CHF: Recently seem to have a decompensation in his heart failure. Originally a few weeks ago reported lower extremity edema and was sent for labs and noted pro BNP being elevated. Started on Lasix 20 mg every other day to which he reports has been helpful in reducing his pedal edema. Also found to have an elevated random blood sugar and A1c elevated at 10.3. Of note does have a history of a flutter that he reports happened once and was on Eliquis. He was not consistent with Eliquis and self discontinued this medication. Not interested in restarting Eliquis at this time will speak with his licensed club manager Type 2 diabetes: Continues on metformin a 1000 b.i.d. and has started Farxiga 10 mg daily. Most recent A1c much improved at 7.9 from 10.3. Also started on Trulicity 0.75 once weekly. He does not regularly check his sugars and is interested in a continues glucose monitor. [facility] Medical History Vitamin D deficiency Elevated PSA Benign prostatic hyperplasia Coronary artery disease Rectal pain Perianal cyst Diabetes mellitus Pure hypercholesterolemia Benign essential hypertension Surgical History History of colonoscopy (~08/26/19) Hx of CABG (~2004) Family History Father Colon cancer Mother No problems noted. Other Family history non-contributory Social History Household Members: Significant Other Housing: Apartment Do you presently have visiting nurse or other home services: No Alcohol intake: never Patient Tobacco Use Status: Never used Tobacco e-Cigarette/Vaping Use: Never Used Second Hand Smoke Exposure: Yes service: No Current occupational status: employed Cognitive needs: No Hearing needs: No Vision needs: Yes Questionnaire Thrive Questionnaire Date Thrive assessed: 10/15/23 LANDY-7 AMB Questionnaire LANDY-7 Date LANDY - 7 assessed: 10/15/23 Source: Developed by Drs. Zeus Harvey, Lidia Sen, Abraham Avila and colleagues, with an educational shamika from [employer]. Review of Systems Const Denies headache(s) Eyes Denies loss of vision ENT Denies vertigo, Denies dizziness, Denies headache(s) and Denies sore throat Card Denies chest pain, Denies leg edema and Denies lightheadedness Resp Denies cough, Denies hemoptysis and Denies wheezing GI Denies abdominal pain, Denies melena, Denies constipation, Denies diarrhea and Denies vomiting Denies dysuria, Denies urinary frequency and Denies urinary urgency Musc Denies arthralgias, Denies joint swelling, Denies numbness and Denies tingling Neuro Denies Abnormal speech present, Denies behavioral changes, Denies vertigo, Denies dizziness, Denies headache(s), Denies loss of vision, Denies memory loss, Denies numbness and Denies tingling Psych Denies anxiety, Denies behavioral changes, Denies depression, Denies memory loss and Denies panic attacks Anil/Lymph Denies easy bleeding and Denies easy bruising Aller/Immun Denies wheezing Physical exam (Primary Care) Vital Signs: Last Vital Signs Pulse 70 04/07/24 15:53 BP 82/58 L 04/07/24 15:53 Pulse Ox 100 04/07/24 15:53 Oxygen Delivery Method Room Air 04/07/24 15:53 BMI result Body Mass Index 21.8 Tobacco/Smoking Status: Tobacco use Status Tobacco use date assessed 10/15/23 04/07/24 15:59 Patient Tobacco Use Status Never used Tobacco 04/07/24 15:59 e-Cigarette/Vaping Use Never Used 04/07/24 15:59 Thrive Assessment: Date of Thrive Assessment Date Thrive assessed 10/15/23 04/07/24 15:59 Const General: healthy appearing, no acute distress, alert and awake Nutritional Appearance: well nourished Orientation/consciousness: oriented to person, oriented to place and oriented to time HENMT Ears: TM's normal bilaterally General nose exam: Normal nasal mucous membranes and turbinates present Eyes Conjunctivae: conjunctivae normal Sclerae: sclerae normal Pupils: Equal, round and reactive pupils present Neck Neck: Yes no lymphadenopathy and Yes no JVD Thyroid: Thyroid normal Carotids: no bruits Resp Effort & Inspection: normal respiratory effort and not tachypneic Auscultation: no crackles, no rales, no rhonchi and no wheezes Cardio Rate: regular rate Rhythm: regular rhythm Heart sounds: no murmurs and normal S1 and S2 GI Palpation (GI): Soft to palpation, nontender, no hepatomegaly and no splenomegaly Auscultation: normal bowel sounds Skin General skin exam: no rashes or lesions noted and dry skin Neuro General: oriented to person, oriented to place and oriented to time Cranial nerves: Yes Equal, round and reactive pupils present Speech: No Abnormal speech present Gait exam (Neuro): Normal gait present Motor exam (neuro): no tremor noted Extrem Right upper extremity: full ROM Left upper extremity: full ROM Right lower extremity: full ROM; no edema Left lower extremity: full ROM; no edema Psych Mental Status: mental status grossly normal Speech and movement: Normal speech and movement present Affect: normal affect Attitude: cooperative Thought process: Normal thought process present Assessment and Plan Assessment & Plan (1) Diabetes mellitus: Code(s): E11.9 - Type 2 diabetes mellitus without complications Qualifiers: Diabetes mellitus type: type 2 Diabetes mellitus senior care insulin use: without outreach representative use Diabetes mellitus complication status: with hyperglycemia Qualified Code(s): E11.65 - Type 2 diabetes mellitus with hyperglycemia Plan: Patient's type 2 diabetes suboptimally controlled. Has been consistent with Trulicity, Farxiga and metformin. A1c has improved to 7.0 Goal A1c is to be below 7 (2) Coronary artery disease: Code(s): I25.10 - Atherosclerotic heart disease of [place] coronary artery without angina pectoris Qualifiers: Coronary Disease-Associated Artery/Lesion type: [place] artery [place] vs. transplanted heart: [place] heart Associated angina: without angina Qualified Code(s): I25.10 - Atherosclerotic heart disease of [place] coronary artery without angina pectoris Plan: Patient continues to follow cardiology. Has upcoming appointment this summer. Denies any chest pain, shortness for breath, or any exertional symptoms. Most recent lipid panel showing excellent control his total cholesterol and LDL. (3) Atrial flutter: Code(s): I48.92 - Unspecified atrial flutter Qualifiers: Atrial flutter type: typical Qualified Code(s): I48.3 - Typical atrial flutter Plan: Patient apparently does have a history of a flutter at 1 time. Seems to be in regular rhythm currently. He was placed on Eliquis 5 mg b.i.d. though was not consistent with taking this medication. He is concerned about starting this medication as he feels he does not needed at this time. Will speak with his licensed club manager about further need for anticoagulation. (4) CHF (congestive heart failure), NYHA class II: Code(s): I50.9 - Heart failure, unspecified Qualifiers: Congestive heart failure type: diastolic Congestive heart failure chronicity: unspecified Qualified Code(s): I50.30 - Unspecified diastolic (congestive) heart failure Plan: Patient does seem to have now compensated Congestive heart failure. Was seen a few weeks ago bilateral lower extremity edema and some fatigue. He was started on Lasix every other day and now feeling much better with less lower extremity edema. (5) Urinary retention: Code(s): R33.9 - Retention of urine, unspecified Plan: Recently seen at the [facility] and had injury catheter placed due to urinary retention. Has had urinary issues in the past after his heart surgery to where he did need a TURP procedure. Will like to reestablish care with Urology to do voiding trial. (6) Urinary catheter in place: Code(s): Z96.0 - Presence of urogenital implants Orders: Orders Urine Culture Today R33.9 - Retention of urine, unspecified UA CC w/rflx Micro + Cult Today R30.0 - Dysuria, R33.9 - Retention of urine, unspecified Referrals Urology Referral R33.9 - Retention of urine, unspecified Coding Level of Care Code Est Pt Level 4 (98663) Complex EM visit Add On G2211 Diagnoses Type 2 diabetes mellitus with hyperglycemia, without long-term current use of insulin E11.65 Diabetes mellitus type: type 2 Diabetes mellitus outreach representative insulin use: without senior care use Diabetes mellitus complication status: with hyperglycemia Coronary artery disease involving [place] coronary artery of [place] heart without angina pectoris I25.10 Coronary Disease-Associated Artery/Lesion type: [place] artery [place] vs. transplanted heart: [place] heart Associated angina: without angina Typical atrial flutter I48.3 Atrial flutter type: typical Diastolic congestive heart failure, NYHA class 2, unspecified congestive heart failure chronicity I50.30 Congestive heart failure type: diastolic Congestive heart failure chronicity: unspecified Urinary retention R33.[address] Z96.0
--- NOTE | 2024-04-07 15:53 | MHC.PC.OV ---
Vital Signs 04/07/24 15:53 Height 5 ft 10 in Blood Pressure Location Lt brachial Position Sitting Pulse Source Pulse Oximeter Oxygen Delivery Method Room Air Intake Visit Reasons: f/u DMII/ CAD Allergies No Known Allergies [No Known Allergies*] Allergy (Verified 04/07/24 15:53) Tobacco use date assessed: 10/15/23 Dental Screening Dental Screen Date: 12/09/23 [facility] Medical History Vitamin D deficiency Elevated PSA Benign prostatic hyperplasia Coronary artery disease Rectal pain Perianal cyst Diabetes mellitus Pure hypercholesterolemia Benign essential hypertension Surgical History History of colonoscopy (~08/26/19) Hx of CABG (~2004) Family History Father Colon cancer Mother No problems noted. Other Family history non-contributory Social History Household Members: Significant Other Housing: Apartment Do you presently have visiting nurse or other home services: No Alcohol intake: never Patient Tobacco Use Status: Never used Tobacco e-Cigarette/Vaping Use: Never Used Second Hand Smoke Exposure: Yes service: No Current occupational status: employed Cognitive needs: No Hearing needs: No Vision needs: Yes Questionnaire Thrive Questionnaire Date Thrive assessed: 10/15/23 LANDY-7 AMB Questionnaire LANDY-7 Date LANDY - 7 assessed: 10/15/23 Source: Developed by Drs. Zeus Harvey, Lidia Sen, Abraham Avila and colleagues, with an educational shamika from [employer]. Physical exam (Primary Care) Tobacco/Smoking Status: Tobacco use Status Tobacco use date assessed 10/15/23 12/09/23 14:13 Patient Tobacco Use Status Never used Tobacco 12/09/23 14:13 e-Cigarette/Vaping Use Never Used 12/09/23 14:13 Thrive Assessment: Date of Thrive Assessment Date Thrive assessed 10/15/23 12/09/23 14:13 Coding
== END 2024-04-07 16:31 | disposition home or self-care (01) ==
PROVIDERS: PCP Internal Medicine; Visit Provider Physician Assistant
DX: E11.65 Type 2 diabetes mellitus with hyperglycemia (principal); I25.10 Atherosclerotic heart disease of native coronary artery without angina pectoris; I48.3 Typical atrial flutter; I50.30 Unspecified diastolic (congestive) heart failure; R33.9 Retention of urine, unspecified; Z96.0 Presence of urogenital implants
CPT/HCPCS: 99214; G2211

== ENCOUNTER 2024-07-12 07:11 | Outpatient (REF) | payer MEDICARE, SELFPAY ==
[2024-07-12 07:54] LABS: Hematocrit 45.9 % (42.0-52.0); Mean Corpuscular HGB Conc 32.7 g/dl (31.0-36.0); Mean Corpuscular Hemoglobin 30.1 pg (27.0-33.0); Mean Platelet Volume 9.9 fL (9.4-12.4); Platelet Count 255 X10*3/uL (160-400); Red Blood Count 4.99 X10*6/uL (4.60-5.80); White Blood Count 9.6 X10*3/uL (4.8-10.8)
[2024-07-12 08:06] LABS: Estimated Average Glucose 197 mg/dL; Hemoglobin A1C 259.4988 umol/L; Hemoglobin A1c % 8.5 % (<6.0); Total Hemoglobin (HGBA1C) 3720.4984 umol/L
[2024-07-12 08:10] LABS: Appearance Urine Turbid; Color Urine Yellow; Glucose Urine UA >=1000 mg/dL (Negative); Leukocyte Esterase Urine Large (3+) (Negative); Nitrite Urine Positive (Negative); PH 7.5 (5.0-9.0); UMIC TRIGGER UACC YES; Urine Blood Small (1+) (Negative); Urine Ketones Negative (Negative); Urine Protein 30 (1+) mg/dL (Neg-Trace)
[2024-07-12 08:27] LABS: Bacteria Urine 4+ (None Seen); Hyaline Casts Urine 0-2 /LPF (0-2); Squamous Epithelial Cell Urine 0-2 /HPF (0-2); UACC Culture Trigger YES; WBC Clumps Urine Present; WBC Urine >50 /HPF (0-5)
[2024-07-12 08:37] LABS: Alanine Aminotransferase 15 U/L (0-40); Albumin Level 4.4 g/dL (3.5-5.0); Alkaline Phosphatase 78 U/L (39-117); Anion Gap 13 (12-20); Aspartate Amino Transferase 10 U/L (5-37); Bilirubin Total 0.7 mg/dL (0.0-1.0); Blood Urea Nitrogen 13 mg/dL (9-16); Calcium 9.8 mg/dL (8.4-10.2); Carbon Dioxide 28 mmol/L (22-29); Chloride 104 mmol/L (96-108); Cholesterol 194 mg/dL (<200); Estimated Glomerular Filt Rate > 60; Glucose Fasting 226 mg/dL (60-99); HDL Cholesterol 59 mg/dL (>40); LDL Cholesterol Calculated 121 mg/dL (<100); Potassium 4.7 mmol/L (3.3-5.1); Sodium 140 mmol/L (135-145); Total Protein 7.3 g/dL (6.5-8.0); Triglycerides 70 mg/dL (<150)
== END 2024-07-12 07:12 | disposition home or self-care (01) ==
LOC: HO.LAB 07:11
PROVIDERS: PCP Internal Medicine; Visit Provider Physician Assistant
DX: R33.9 Retention of urine, unspecified (principal); E11.65 Type 2 diabetes mellitus with hyperglycemia; I50.30 Unspecified diastolic (congestive) heart failure; R30.0 Dysuria
CPT/HCPCS: 36415; 80053; 80061; 81001; 81003; 83036; 85027; 87086

== ENCOUNTER 2024-07-14 15:47 | Outpatient (AMB) | payer MEDICARE, SELFPAY ==
--- NOTE | 2024-07-14 15:54 | A.OFFPC_ITS ---
Vital Signs 07/14/24 16:00 Height 5 ft 10 in Weight 158 lb 2 oz BMI 22.7 BP 110/70 Blood Pressure Location Lt brachial Position Sitting Pulse 68 Pulse Source Pulse Oximeter Pulse Oximetry (%) 100 Oxygen Delivery Method Room Air Intake Visit Reasons: F/u DMII Granulizing Machine Operator Required: No Accompanied by: Self / Same As Patient Allergies No Known Allergies [No Known Allergies*] Allergy (Verified 07/14/24 16:01) Medication List - Last Reconciled 07/14/24 by Dze Torres PA-C apixaban (Eliquis) 5 mg PO BID atorvastatin 80 mg PO DAILY blood-glucose meter,continuous (FreeStyle Ирина 3 [place]) As directed blood-glucose sensor (FreeStyle Ирина 3 Sensor device) As directed cholecalciferol (vitamin D3) 50 mcg PO DAILY 90 days ciprofloxacin HCl 250 mg PO BID 7 days compr.stocking,knee,long,large as directed dapagliflozin propanediol (Farxiga) 10 mg PO DAILY dulaglutide (Trulicity) 0.75 mg (0.5 mL) subcut QWEEK 4 weeks furosemide 20 mg PO Q OTHER DAY 30 days lisinopril 5 mg (1/2 x 10 mg) PO DAILY metformin 1,000 mg PO BID 90 days metoprolol tartrate 50 mg See Protocol PO BID nitroglycerin 0.4 mg sublingual Q5M PRN tamsulosin 0.4 mg PO DAILY Tobacco use date assessed: 10/15/23 Fall risk assessment: No Falls in past year Last assessed Fall Risk: 07/14/24 Dental Screening Dental Screen Date: 12/09/23 HPI F/u DMII HPI Details Patient is a 74-year-old male here today for follow-up visit. Patient has a past medical history significant for coronary artery disease, a flutter, type 2 diabetes. BPH/urinary retention: Recently got a urinalysis that did show positive UTI. He has been placed on antibiotics. He will be following up with his urologist about his urinary retention his he has been needing to self to urinate over the last several months. He is considering a TURP procedure Type 2 diabetes: Continues on metformin a 1000 b.i.d. and has started Farxiga 10 mg daily. Most recent A1c at 8.5 from 7.9. Also started on Trulicity 0.75 once weekly. PLAN: Will increase his Trulicity to 1.5 mg weekly for better glycemic control. Laboratory Tests 09/24/23 10/15/23 04/04/24 09:05 11:15 09:38 RBC 4.59 L Hgb 13.6 L 13.4 L Creatinine 1.16 Random Glucose 297 H Fasting Glucose 205 H Hgb A1c (Clinic) 10.3 H Hemoglobin A1c % 7.9 H NT-Pro-B Natriuret Pep 986 H Cholesterol LDL Cholesterol, C alc 58 Ur Leukocyte Mirian ase Urine Bacteria 07/12/24 07/12/24 07:15 07:18 RBC 4.99 Hgb 15.0 Creatinine 0.96 Random Glucose Fasting Glucose 226 H Hgb A1c (Clinic) Hemoglobin A1c % 8.5 H NT-Pro-B Natriuret Pep Cholesterol 194 LDL Cholesterol, C alc 121 H Ur Leukocyte Mirian ase Large (3+) H Urine Bacteria 4+ PFSH Medical History Vitamin D deficiency Elevated PSA Benign prostatic hyperplasia Coronary artery disease Rectal pain Perianal cyst Diabetes mellitus Pure hypercholesterolemia Benign essential hypertension Surgical History History of colonoscopy (~08/26/19) Hx of CABG (~2004) Family History Father Colon cancer Mother No problems noted. Other Family history non-contributory Social History Household Members: Significant Other Housing: Apartment Do you presently have visiting nurse or other home services: No Alcohol intake: never Patient Tobacco Use Status: Never used Tobacco e-Cigarette/Vaping Use: Never Used Second Hand Smoke Exposure: Yes service: No Current occupational status: employed Cognitive needs: No Hearing needs: No Vision needs: Yes Questionnaire PHQ-9 Over the last 2 weeks, how often have you been bothered by any of the following problems? 1. Little interest or pleasure in doing things: not at all 2. Feeling down, depressed, or hopeless: not at all 3. Trouble falling or staying asleep, or sleeping too much: not at all 4. Feeling tired or having little energy: not at all 5. Poor appetite or overeating: not at all 6. Feeling bad about yourself - or that you are a failure or have let yourself or your family down: not at all 7. Trouble concentrating on things, such as reading the newspaper or watching television: not at all 8. Moving or speaking so slowly that other people could have noticed. Or the opposite - being so fidgety or restless that you have been moving around a lot more than usual: not at all 9. Thoughts that you would be better off or of hurting yourself in some way: not at all Total score: 0 Depression Screening Interpretation: Negative Depression Screening Done: Yes 97451 - PHQ-9 Billing: Yes Source: Developed by Drs. Zeus Harvey, Lidia Sen, Abraham Avila and colleagues, with an educational shamika from [employer]. Thrive Questionnaire Date Thrive assessed: 07/14/24 I am a: Patient What is your living situation today?: I have a steady place to live Within the past 12 months, did the food you bought not last and you didn't have the money to get more?: Never true Within the past 12 months, did you worry whether your food would run out before you got money to buy more?: Never true Do you have trouble paying for medicines?: No Do you have trouble getting transportation to medical appointments?: No Do you have trouble paying your heating and electricity bill?: No Do you have trouble taking care of your child, family member or friend?: No Do you have trouble with day-to-day activities such as bathing, preparing meals, shopping, managing finances, etc.?: No Are you currently unemployed and looking for a job?: Yes Are you interested in more education?: No Please select the resources that you would like help with: None Currently or been in a relationship where the following occur: No concerns reported THRIVE Score: 0 AUDIT C Alcohol Use Questionnaire (AUDIT-C) 1. How often do you have a drink containing alcohol?: Never 3. How often do you have six or more drinks on one occasion?: Never Total Score: 0 LANDY-7 AMB Questionnaire LANDY-7 Date LANDY - 7 assessed: 07/14/24 Feeling nervous, anxious, or on edge: 0 = Not at all Not being able to stop or control worryin = Not at all Worrying too much about different things: 0 = Not at all Trouble relaxin = Not at all Being so restless that it is hard to sit still: 0 = Not at all Becoming easily annoyed or irritable: 0 = Not at all Feeling afraid as if something awful might happen: 0 = Not at all Total LANDY-7 score (0-4 normal; 5-9 mild; 10-14 moderate; 15-21 severe): 0 Source: Developed by Drs. Zeus Harvey, Lidia Sen, Abraham Avila and colleagues, with an educational shamika from [employer]. LANDY-7 Assessment Billing LANDY-7 Assessment Tool: LANDY-7 Assessment 07974 Review of Systems Const Denies headache(s) Eyes Denies loss of vision ENT Denies vertigo, Denies dizziness, Denies headache(s) and Denies sore throat Card Denies chest pain, Denies leg edema and Denies lightheadedness Resp Denies cough, Denies hemoptysis and Denies wheezing GI Denies abdominal pain, Denies melena, Denies constipation, Denies diarrhea and Denies vomiting Denies dysuria, Denies urinary frequency and Denies urinary urgency Musc Denies arthralgias, Denies joint swelling, Denies numbness and Denies tingling Neuro Denies Abnormal speech present, Denies behavioral changes, Denies vertigo, Denies dizziness, Denies headache(s), Denies loss of vision, Denies memory loss, Denies numbness and Denies tingling Psych Denies anxiety, Denies behavioral changes, Denies depression, Denies memory loss and Denies panic attacks Anil/Lymph Denies easy bleeding and Denies easy bruising Aller/Immun Denies wheezing Physical exam (Primary Care) Vital Signs: Last Vital Signs Pulse 68 07/14/24 16:00 BP 110/70 07/14/24 16:00 Pulse Ox 100 07/14/24 16:00 Oxygen Delivery Method Room Air 07/14/24 16:00 BMI result Body Mass Index 22.7 Tobacco/Smoking Status: Tobacco use Status Tobacco use date assessed 10/15/23 07/14/24 15:56 Patient Tobacco Use Status Never used Tobacco 07/14/24 15:56 e-Cigarette/Vaping Use Never Used 07/14/24 15:56 PHQ-9: PHQ-9 Score PHQ-9: Total score 0 07/14/24 16:07 Depression Screening Interpretation: Negative Thrive Assessment: Date of Thrive Assessment Date Thrive assessed 07/14/24 07/14/24 16:02 Currently or been in a relationship where the following occur: No concerns reported Const General: healthy appearing, no acute distress, alert and awake Nutritional Appearance: well nourished Orientation/consciousness: oriented to person, oriented to place and oriented to time HENMT Ears: TM's normal bilaterally General nose exam: Normal nasal mucous membranes and turbinates present Eyes Conjunctivae: conjunctivae normal Sclerae: sclerae normal Pupils: Equal, round and reactive pupils present Neck Neck: Yes no lymphadenopathy and Yes no JVD Thyroid: Thyroid normal Carotids: no bruits Resp Effort & Inspection: normal respiratory effort and not tachypneic Auscultation: no crackles, no rales, no rhonchi and no wheezes Cardio Rate: regular rate Rhythm: regular rhythm Heart sounds: no murmurs and normal S1 and S2 GI Palpation (GI): Soft to palpation, nontender, no hepatomegaly and no splenomegaly Auscultation: normal bowel sounds Skin General skin exam: no rashes or lesions noted and dry skin Neuro General: oriented to person, oriented to place and oriented to time Cranial nerves: Yes Equal, round and reactive pupils present Speech: No Abnormal speech present Gait exam (Neuro): Normal gait present Motor exam (neuro): no tremor noted Extrem Right upper extremity: full ROM Left upper extremity: full ROM Right lower extremity: full ROM; no edema Left lower extremity: full ROM; no edema Psych Mental Status: mental status grossly normal Speech and movement: Normal speech and movement present Affect: normal affect Attitude: cooperative Thought process: Normal thought process present Office Procedures Flu Questionnaire Does the patient have a severe egg allergy?: No Does the patient have severe life threatening allergies?: No Does the patient have a fever or illness today?: No Has the patient ever had Guillain-Vest Syndrome?: No Has the patient ever had any past reaction to a flu shot?: No Immunizations Fluarix Triv [id number] (PF) 45 mcg (15 mcg x 3)/0.5 mL IM syringe Performing Provider: Dez Torres PA-C [facility] Administered by: CHAD Beltran on 07/14/24 16:07 Dose Route Admin Location Dispensed Lot Number Expiration Date NDC Safe Deposit Box Rental Clerk 0.5 mL IM Left Deltoid 0.5 mL [id number] 04/10/25 [id number] [employer] 2 VIS Given Date VIS Provided VIS Publication Date 07/14/24 Single Vaccine 21 Eligibility Eligibility Date Funding Source Not [facility] Eligible 07/14/24 Private Coding Level of Care Code Est Pt Level 4 (08212) Diagnoses UTI (urinary tract infection) N39.0 Type 2 diabetes mellitus with hyperglycemia, without long-term current use of insulin E11.65 Diabetes mellitus type: type 2 Diabetes mellitus longwall shearer operator insulin use: without longwall shearer operator use Diabetes mellitus complication status: with hyperglycemia Diastolic congestive heart failure, NYHA class 2, unspecified congestive heart failure chronicity I50.30 Congestive heart failure type: diastolic Congestive heart failure chronicity: unspecified Additional Codes LANDY-7 Assessment Billing - LANDY-7 Assessment Tool: LANDY-7 Assessment 30433 ([id number]) Assessment & Plan Assessment & Plan (1) UTI (urinary tract infection): Code(s): N39.0 - Urinary tract infection, site not specified Category: Medical Plan: As per HPI patient recently diagnosed with a UTI and was placed on antibiotics. Of note patient does self catheterization to urinate which is likely the reason for his UTI. He has been offered a TURP procedure by his urologist though he is now still considering. Advised to follow up with urologist in struggling consider prostate procedure as he is likely going to have recurrent UTIs due to the nature of self cathing. (2) Diabetes mellitus: Code(s): E11.9 - Type 2 diabetes mellitus without complications Category: Medical Qualifiers: Diabetes mellitus type: type 2 Diabetes mellitus longwall shearer operator insulin use: without retirement use Diabetes mellitus complication status: with hyperglycemia Qualified Code(s): E11.65 - Type 2 diabetes mellitus with hyperglycemia Plan: Patient's type 2 diabetes suboptimally controlled. Will increase his Trulicity dose to 1.5 mg weekly for better glycemic control. Goal A1c is to be below 7.0 (3) CHF (congestive heart failure), NYHA class II: Code(s): I50.9 - Heart failure, unspecified Category: Medical Qualifiers: Congestive heart failure type: diastolic Congestive heart failure chronicity: unspecified Qualified Code(s): I50.30 - Unspecified diastolic (congestive) heart failure Plan: Patient's Congestive heart failure has been seemingly well compensated. Did have bilateral lower extremity edema in the setting of urinary retention. Has not had to use any furosemide at all since using a catheter. Orders: Orders Prostate Specific Antigen Scr 07/14/24 R33.9 - Retention of urine, unspecified, Z12.5 - Encounter for screening for malignant neoplasm of prostate Lipid Panel 3 Months I25.10 - Atherosclerotic heart disease of [place] coronary artery without angina pectoris Comprehensive [place]. Panel Fast 3 Months E11.65 - Type 2 diabetes mellitus with hyperglycemia UA CC w/rflx Micro + Cult 07/14/24 N39.0 - Urinary tract infection, site not specified, R30.0 - Dysuria Influenza [id number] Immunization 07/14/24 Z23 - Encounter for immunization Complete Blood Count no Diff 3 Months E11.65 - Type 2 diabetes mellitus with hyperglycemia Hemoglobin A1c 3 Months E11.65 - Type 2 diabetes mellitus with hyperglycemia Medications: New dulaglutide (Trulicity) 1.5 mg (0.5 mL) subcut QWEEK 2 mL 2RF 4 weeks E11.65 - Type 2 diabetes mellitus with hyperglycemia Discontinued furosemide Discontinued Reason: Doctor's Order 20 mg PO Q OTHER DAY 30 days 15 tabs 1RF R60.0 - Localized edema dulaglutide (Trulicity) Discontinued Reason: Doctor's Order 0.75 mg (0.5 mL) subcut QWEEK 4 weeks 2 mL 1RF E11.65 - Type 2 diabetes mellitus with hyperglycemia
[2024-07-14 16:00] VITALS: BP 110/70; PULSE 68; O2SAT 100; BMI 22.7
== END 2024-07-14 16:24 | disposition home or self-care (01) ==
PROVIDERS: PCP Physician Assistant; Visit Provider Physician Assistant
DX: N39.0 Urinary tract infection, site not specified (principal); E11.65 Type 2 diabetes mellitus with hyperglycemia; I50.30 Unspecified diastolic (congestive) heart failure

== ENCOUNTER → 2024-07-14 15:47 | Outpatient (BNVA) | payer MEDICARE, SELFPAY | PROVIDERS: PCP Physician Assistant; Visit Provider Physician Assistant | DX: Z23 Encounter for immunization (principal); N39.0 Urinary tract infection, site not specified; E11.65 Type 2 diabetes mellitus with hyperglycemia; I50.30 Unspecified diastolic (congestive) heart failure | CPT/HCPCS: 90471; 90656; 96127; 99212 ==

== ENCOUNTER 2024-09-16 10:29 | Outpatient (REF) | payer MEDICARE, SELFPAY ==
[2024-09-16 12:13] LABS: Prostate Specific Antigen Scr 8.03 ng/mL (<0.05-4.0)
[2024-09-16 17:00] LABS: Appearance Urine Cloudy; Color Urine Yellow; Glucose Urine UA >=1000 mg/dL (Negative); Leukocyte Esterase Urine Moderate (2+) (Negative); Nitrite Urine Negative (Negative); PH 5.5 (5.0-9.0); Specific Gravity - Urine 1.025 (1.005-1.025); UMIC TRIGGER UACC YES; Urine Blood Negative (Negative); Urine Ketones Negative (Negative); Urine Protein Negative (Neg-Trace)
[2024-09-16 17:06] LABS: Bacteria Urine 4+ (None Seen); Hyaline Casts Urine 0-2 /LPF (0-2); RBC Urine 0-2 /HPF (0-2); Squamous Epithelial Cell Urine 0-2 /HPF (0-2); UACC Culture Trigger YES; WBC Urine >50 /HPF (0-5)
== END 2024-09-16 10:30 | disposition home or self-care (01) ==
LOC: HO.LAB 10:29
PROVIDERS: PCP Physician Assistant; Visit Provider Physician Assistant
DX: Z12.5 Encounter for screening for malignant neoplasm of prostate (principal); R33.9 Retention of urine, unspecified
CPT/HCPCS: 36415; 81001; 81003; 84153; 87086; 87088; 87186

== ENCOUNTER 2024-10-20 15:30 | Outpatient (AMB) | payer MEDICARE, SELFPAY ==
[2024-10-20 15:47] VITALS: BP 108/68; PULSE 58; O2SAT 97; BMI 22.7
--- NOTE | 2024-10-20 15:47 | A.OFFPC_ITS ---
Vital Signs 10/20/24 15:47 Height 5 ft 10 in Weight 158 lb BMI 22.7 BP 108/68 Blood Pressure Location Lt brachial Position Sitting Pulse 58 Pulse Source Pulse Oximeter Pulse Oximetry (%) 97 Oxygen Delivery Method Room Air Intake Visit Reasons: 3mth f/u House Father Required: No Accompanied by: Self / Same As Patient Allergies No Known Allergies [No Known Allergies*] Allergy (Verified 10/20/24 15:56) Medication List - Last Reconciled 10/20/24 by Dez Torres PA-C apixaban (Eliquis) 5 mg PO BID atorvastatin 80 mg PO DAILY blood-glucose meter,continuous (FreeStyle Ирина 3 [place]) As directed blood-glucose sensor (FreeStyle Ирина 3 Sensor device) As directed cholecalciferol (vitamin D3) 50 mcg PO DAILY 90 days compr.stocking,knee,long,large as directed dapagliflozin propanediol (Farxiga) 10 mg PO DAILY dulaglutide (Trulicity) 1.5 mg (0.5 mL) subcut QWEEK 4 weeks lisinopril 5 mg (1/2 x 10 mg) PO DAILY metformin 1,000 mg PO BID 90 days metoprolol tartrate 50 mg See Protocol PO BID nitrofurantoin macrocrystal 100 mg PO BID 7 days nitroglycerin 0.4 mg sublingual Q5M PRN tamsulosin 0.4 mg PO DAILY Tobacco use date assessed: 10/20/24 Fall risk assessment: No Falls in past year Last assessed Fall Risk: 10/20/24 Dental Screening Dental Screen Date: 10/20/24 Did you have a dental visit in the last 12 months?: Yes Did you have a dental problem in the last 6 months where you did not have access to dental care?: No Was dental information given to patient?: Patient has dentist HPI 3mth f/u HPI Details Patient is a 74-year-old male here today for follow-up visit. Patient has a past medical history significant for coronary artery disease, a flutter, type 2 diabetes. BPH/urinary retention: Considering PRostate surgery for urinary retention. He has been placed on antibiotics. He will be following up with his urologist about his urinary retention his he has been needing to self to urinate over the last several months. Type 2 diabetes: Continues on metformin a 1000 b.i.d. and has started Farxiga 10 mg daily. Today's A1c above 10 from 8.5.. [facility] Medical History Vitamin D deficiency Elevated PSA Benign prostatic hyperplasia Coronary artery disease Rectal pain Perianal cyst Diabetes mellitus Pure hypercholesterolemia Benign essential hypertension Surgical History History of colonoscopy (~08/26/19) Hx of CABG (~2004) Family History Father Colon cancer Mother No problems noted. Other Family history non-contributory Social History Household Members: Significant Other Housing: Apartment Do you presently have visiting nurse or other home services: No Alcohol intake: never Patient Tobacco Use Status: Never used Tobacco e-Cigarette/Vaping Use: Never Used Second Hand Smoke Exposure: Yes service: No Current occupational status: employed Cognitive needs: No Hearing needs: No Vision needs: Yes Questionnaire PHQ-9 Over the last 2 weeks, how often have you been bothered by any of the following problems? 1. Little interest or pleasure in doing things: not at all 2. Feeling down, depressed, or hopeless: not at all 3. Trouble falling or staying asleep, or sleeping too much: not at all 4. Feeling tired or having little energy: not at all 5. Poor appetite or overeating: not at all 6. Feeling bad about yourself - or that you are a failure or have let yourself or your family down: not at all 7. Trouble concentrating on things, such as reading the newspaper or watching television: not at all 8. Moving or speaking so slowly that other people could have noticed. Or the opposite - being so fidgety or restless that you have been moving around a lot more than usual: not at all 9. Thoughts that you would be better off or of hurting yourself in some way: not at all Total score: 0 Depression Screening Interpretation: Negative Depression Screening Done: Yes 82408 - PHQ-9 Billing: Yes Source: Developed by Drs. Zeus Harvey, Lidia Sen, Abraham Avila and colleagues, with an educational shamika from [employer]. Thrive Questionnaire Date Thrive assessed: 10/20/24 I am a: Patient What is your living situation today?: I have a steady place to live Within the past 12 months, did the food you bought not last and you didn't have the money to get more?: Never true Within the past 12 months, did you worry whether your food would run out before you got money to buy more?: Never true Do you have trouble paying for medicines?: No Do you have trouble getting transportation to medical appointments?: No Do you have trouble paying your heating and electricity bill?: No Do you have trouble taking care of your child, family member or friend?: No Do you have trouble with day-to-day activities such as bathing, preparing meals, shopping, managing finances, etc.?: No Are you currently unemployed and looking for a job?: Yes Are you interested in more education?: No Please select the resources that you would like help with: None Currently or been in a relationship where the following occur: No concerns reported THRIVE Score: 0 AUDIT C Alcohol Use Questionnaire (AUDIT-C) 1. How often do you have a drink containing alcohol?: Never 3. How often do you have six or more drinks on one occasion?: Never Total Score: 0 LANDY-7 AMB Questionnaire LANDY-7 Date LANDY - 7 assessed: 10/20/24 Feeling nervous, anxious, or on edge: 0 = Not at all Not being able to stop or control worryin = Not at all Worrying too much about different things: 0 = Not at all Trouble relaxin = Not at all Being so restless that it is hard to sit still: 0 = Not at all Becoming easily annoyed or irritable: 0 = Not at all Feeling afraid as if something awful might happen: 0 = Not at all Total LANDY-7 score (0-4 normal; 5-9 mild; 10-14 moderate; 15-21 severe): 0 Source: Developed by Drs. Zeus Harvey, Lidia Sen, Abraham Avila and colleagues, with an educational shamika from [employer]. LANDY-7 Assessment Billing LANDY-7 Assessment Tool: LANDY-7 Assessment 87096 Physical exam (Primary Care) Vital Signs: Last Vital Signs Pulse 58 10/20/24 15:47 BP 108/68 10/20/24 15:47 Pulse Ox 97 10/20/24 15:47 Oxygen Delivery Method Room Air 10/20/24 15:47 BMI result Body Mass Index 2.2 Tobacco/Smoking Status: Tobacco use Status Tobacco use date assessed 10/20/24 10/20/24 15:54 Patient Tobacco Use Status Never used Tobacco 10/20/24 15:49 e-Cigarette/Vaping Use Never Used 10/20/24 15:49 PHQ-9: PHQ-9 Score PHQ-9: Total score 0 10/20/24 15:54 Depression Screening Interpretation: Negative Thrive Assessment: Date of Thrive Assessment Date Thrive assessed 10/20/24 10/20/24 15:54 Currently or been in a relationship where the following occur: No concerns reported Results AMB Hemoglobin A1c AMB Hemoglobin A1c 10.8 % Last Edit by CHAD Beltran on 10/20/24 15:55 Results Reviewed Results Reviewed: Laboratory Last Values Hgb A1c (Clinic) 10.8 % (4.0-6.0) H 10/20/24 15:47 Coding Diagnoses Urinary retention R33.9 Type 2 diabetes mellitus with hyperglycemia, without long-term current use of insulin E11.65 Diabetes mellitus type: type 2 Diabetes mellitus remote computer terminal operator insulin use: without remote computer terminal operator use Diabetes mellitus complication status: with hyperglycemia Typical atrial flutter I48.3 Atrial flutter type: typical Additional Codes LANDY-7 Assessment Billing - LANDY-7 Assessment Tool: LANDY-7 Assessment 86936 ([id number]) PHQ-9 - 11977 - PHQ-9 Billing: Yes ([id number]) Assessment & Plan Assessment & Plan (1) Urinary retention: Code(s): R33.9 - Retention of urine, unspecified Category: Medical (2) Diabetes mellitus: Code(s): E11.9 - Type 2 diabetes mellitus without complications Category: Medical Qualifiers: Diabetes mellitus type: type 2 Diabetes mellitus fdc insulin use: without remote computer terminal operator use Diabetes mellitus complication status: with hyperglycemia Qualified Code(s): E11.65 - Type 2 diabetes mellitus with hyperglycemia Plan: Patient's type 2 diabetes is suboptimally controlled. He does admit to dietary indiscretion over the holidays. Today's A1c at 10.8 from 8.5. He continues on Trulicity, Farxiga and metformin. We discussed making adjustments in his diabetic medication though is not willing to do so at this time and would like to work strictly on diabetic diet. Goal A1c is to be below 7.0 (3) Atrial flutter: Code(s): I48.92 - Unspecified atrial flutter Category: Medical Qualifiers: Atrial flutter type: typical Qualified Code(s): I48.3 - Typical atrial flutter Orders: Orders AMB Hemoglobin A1c Today E11.65 - Type 2 diabetes mellitus with hyperglycemia
== END 2024-10-20 16:17 | disposition home or self-care (01) ==
PROVIDERS: PCP Physician Assistant; Visit Provider Physician Assistant
DX: E11.65 Type 2 diabetes mellitus with hyperglycemia (principal)

== ENCOUNTER → 2024-10-20 15:30 | Outpatient (BNVA) | payer MEDICARE, SELFPAY | PROVIDERS: PCP Physician Assistant; Visit Provider Physician Assistant | DX: I25.10 Atherosclerotic heart disease of native coronary artery without angina pectoris (principal); E11.65 Type 2 diabetes mellitus with hyperglycemia; R33.9 Retention of urine, unspecified; I48.3 Typical atrial flutter; Z79.84 Long term (current) use of oral hypoglycemic drugs; Z79.899 Other long term (current) drug therapy | CPT/HCPCS: 83036; 96127; 99212 ==

== ENCOUNTER 2025-01-16 07:38 | Outpatient (REF) | payer MEDICARE, SELFPAY ==
--- OUTSIDE RECORDS SUMMARY | 2025-01-16 07:41 | XMS_ITS | Patient Health Record ---
Author Organization [facility] Address [address] [place] [id number] Care Team Providers Care Filling And Packing Supervisor Name Role Phone Mary Carmen Acuna MDh Primary Care Provider Ariel Stark Jr Unavailable Reason For Referral No Information Medications Medication SIG (Take, Route, Frequency, Duration) Notes Start Date End Date Status Nitroglycerin 0.3 MG as directed Subling ual prn Active Flomax 0.4 MG 1 capsule Orally Onc e a day Active Lipitor 80 MG 1 tablet Orally Once a day Active Metoprolol Succinate ER 50 MG 1 tablet Orally Once a day Active Lisinopril 10 MG 1 tablet Orally Once a day Active Zetia 10 MG 1 tablet Orally Once a day Active metFORMIN HCl 500 MG 1 tablet with a raymundo l Orally twice a day Active Aspir-Low 81 MG 1 tablet Orally Once a day for 30 day(s) Active Immunizations Vaccine Route Administration Date Status Comme nts Influenza Unknown 08/10/2018 Administered Influenza Unknown 02/06/2021 Refused Problems Problem Type SNOMED Code ICD Code Onset Dates Problem Status W/U Status Risk Notes Problem 515409465 Colon cancer screening (Z12.11) Active confirmed Problem 761190318 Encounter for other preprocedural examination (Z01.818) Active confirmed Problem 87995361 Other hemorrhoid s (K64.8) Active confirmed Problem 181814473 Long-term use of aspirin therapy (Z79.82) Active confirmed Plan Of Treatment Future Test Test Name Order Date COLONOSCOPY 08/04/2013 COLONOSCOPY 08/03/2019 Insurance Providers Payer Name Payer Address Payer Phone Subscriber Number Group Number Insured Name Patient Relationship to Insured Coverage Start Date Coverage End Date [facility] [place] [facility] BLUE BCBS PROFESSIONAL CLAIMS [address] [place] [address] [id number] 2 JEAN MARIE KO Self - patient is the insured Medical (General) History Medical History History ICD Code coronary artery disease with history of [place] in 2004 Benign prostatic hyperplasia diabetes type 2 hypertension hyperlipidemia Hx of heart attack and has had BYPASS Surgical History Surgery Date(Month/Year) coronary artery bypass grafting
[2025-01-16 09:03] LABS: Hematocrit 46.9 % (42.0-52.0); Hemoglobin 15.6 g/dl (14.0-18.0); Mean Corpuscular HGB Conc 33.3 g/dl (31.0-36.0); Mean Corpuscular Hemoglobin 29.9 pg (27.0-33.0); Mean Platelet Volume 10.3 fL (9.4-12.4); Platelet Count 246 X10*3/uL (160-400); Red Blood Count 5.21 X10*6/uL (4.60-5.80); Red Cell Distribution Width 13.6 % (11.0-16.0); White Blood Count 8.2 X10*3/uL (4.8-10.8)
[2025-01-16 09:17] LABS: Estimated Average Glucose 301 mg/dL; Hemoglobin A1C 446.7086 umol/L; Hemoglobin A1c % 12.1 % (<6.0)
[2025-01-16 10:16] LABS: Appearance Urine Cloudy; Color Urine Yellow; Glucose Urine UA >=1000 mg/dL (Negative); Leukocyte Esterase Urine Small (1+) (Negative); Nitrite Urine Negative (Negative); PH 5.5 (5.0-9.0); Specific Gravity - Urine >= 1.030 (1.005-1.025); UMIC TRIGGER UACC YES; Urine Blood Negative (Negative); Urine Ketones Negative (Negative); Urine Protein Negative (Neg-Trace)
[2025-01-16 10:25] LABS: Alanine Aminotransferase 24 U/L (0-40); Albumin Level 4.4 g/dL (3.5-5.0); Anion Gap 13 (12-20); Aspartate Amino Transferase 16 U/L (5-37); Bilirubin Total 0.5 mg/dL (0.0-1.0); Blood Urea Nitrogen 27 mg/dL (9-16); Carbon Dioxide 26 mmol/L (22-29); Chloride 102 mmol/L (96-108); Cholesterol 202 mg/dL (<200); Estimated Glomerular Filt Rate > 60; Glucose Fasting 322 mg/dL (60-99); HDL Cholesterol 50 mg/dL (>40); LDL Cholesterol Calculated 130 mg/dL (<100); Potassium 4.3 mmol/L (3.3-5.1); Sodium 137 mmol/L (135-145); Total Protein 7.1 g/dL (6.5-8.0); Triglycerides 111 mg/dL (<150)
[2025-01-16 10:27] LABS: Bacteria Urine 4+ (None Seen); Hyaline Casts Urine 0-2 /LPF (0-2); RBC Urine 0-2 /HPF (0-2); Squamous Epithelial Cell Urine 0-2 /HPF (0-2); UACC Culture Trigger YES; WBC Urine >50 /HPF (0-5)
[2025-01-16 10:39] LABS: Alkaline Phosphatase 76 U/L (39-117)
== END 2025-01-16 07:39 | disposition home or self-care (01) ==
LOC: HO.LAB 07:38
PROVIDERS: PCP Physician Assistant; Visit Provider Physician Assistant
DX: I25.10 Atherosclerotic heart disease of native coronary artery without angina pectoris (principal); E11.65 Type 2 diabetes mellitus with hyperglycemia; R30.0 Dysuria; N39.0 Urinary tract infection, site not specified
CPT/HCPCS: 36415; 80053; 80061; 81001; 81003; 83036; 85027; 87086; 87088; 87186

== ENCOUNTER 2025-01-18 15:47 | Outpatient (AMB) | payer MEDICARE, SELFPAY ==
[2025-01-18 16:00] VITALS: BP 120/62; PULSE 70; TEMP 36.2; O2SAT 94; BMI 22.4
--- NOTE | 2025-01-18 16:00 | A.OFFPC_ITS ---
Vital Signs 01/18/25 16:00 Height 5 ft 10 in Weight 156 lb BMI 22.4 BP 120/62 Blood Pressure Location Lt brachial Position Sitting Pulse 70 Pulse Source Pulse Oximeter Temp 97.1 F Temp Source Temporal Artery Scan Pulse Oximetry (%) 94 Oxygen Delivery Method Room Air Intake Visit Reasons: f/u DMII Instructional Technology Facilitator Required: No Accompanied by: Self / Same As Patient Allergies No Known Allergies [No Known Allergies*] Allergy (Verified 01/18/25 16:06) Medication List - Last Reconciled 01/18/25 by Dez Torres PA-C apixaban (Eliquis) 5 mg PO BID atorvastatin 80 mg PO DAILY blood-glucose sensor ([employer],IncStyle Ирина 3 Sensor device) As directed blood-glucose,precision grinder,cont (FreeStyle Ирина 3 [place]) As directed cholecalciferol (vitamin D3) 50 mcg PO DAILY 90 days compr.stocking,knee,long,large as directed dapagliflozin propanediol (Farxiga) 10 mg PO DAILY dulaglutide (Trulicity) 1.5 mg (0.5 mL) subcut QWEEK 4 weeks dulaglutide (Trulicity) 3 mg (0.5 mL) subcut QWEEK 4 weeks lisinopril 5 mg (1/2 x 10 mg) PO DAILY metformin 1,000 mg PO BID 90 days metoprolol tartrate 50 mg See Protocol PO BID nitrofurantoin macrocrystal 100 mg PO BID 7 days nitroglycerin 0.4 mg sublingual Q5M PRN tamsulosin 0.4 mg PO DAILY Tobacco use date assessed: 10/20/24 Fall risk assessment: No Falls in past year Last assessed Fall Risk: 01/18/25 Dental Screening Dental Screen Date: 10/20/24 HPI f/u DMII HPI Details Patient is a 74-year-old male here today for follow-up visit. Patient has a past medical history significant for coronary artery disease, a flutter, type 2 diabetes. BPH/urinary retention: Considering PRostate surgery for urinary retention. Recent urinalysis did show positive culture was staph species. He will be following up with his urologist about his urinary retention his he has been needing to self catheterize . he is concerned about getting prostate procedure due to hospital admission. He mentions he had done a prostate/urinary retention procedure that was in office years ago. He promises to reach out to his urologist about his urinary retention Type 2 diabetes: Continues on metformin a 1000 b.i.d, Trulicity 1.5 weekly. and has started Farxiga 10 mg daily. Most recent A1c at 12 from 10. He admits to drinking a few gal of skim milk per week. We did discuss that milk does have a fair amount of sugar. PLAN: Will increase his Trulicity to 3 mg weekly .. A flutter: continues to follow a dental nurse. Continues on rate control with metoprolol and anticoagulated with Eliquis. He denies any overt signs of bleeding. [facility] Medical History Vitamin D deficiency Elevated PSA Benign prostatic hyperplasia Coronary artery disease Rectal pain Perianal cyst Diabetes mellitus Pure hypercholesterolemia Benign essential hypertension Surgical History History of colonoscopy (~08/26/19) Hx of CABG (~2004) Family History Father Colon cancer Mother No problems noted. Other Family history non-contributory Social History Household Members: Significant Other Housing: Apartment Do you presently have visiting nurse or other home services: No Alcohol intake: never Patient Tobacco Use Status: Never used Tobacco e-Cigarette/Vaping Use: Never Used Second Hand Smoke Exposure: Yes service: No Current occupational status: employed Cognitive needs: No Hearing needs: No Vision needs: Yes Questionnaire Thrive Questionnaire Date Thrive assessed: 10/20/24 LANDY-7 AMB Questionnaire LANDY-7 Date LANDY - 7 assessed: 10/20/24 Source: Developed by Drs. Zeus Harvey, Lidia Sen, Abraham Avila and colleagues, with an educational shamika from [employer]. Review of Systems Const Denies headache(s) Eyes Denies loss of vision ENT Denies vertigo, Denies dizziness, Denies headache(s) and Denies sore throat Card Denies chest pain, Denies leg edema and Denies lightheadedness Resp Denies cough, Denies hemoptysis and Denies wheezing GI Denies abdominal pain, Denies melena, Denies constipation, Denies diarrhea and Denies vomiting Denies dysuria, Denies urinary frequency and Denies urinary urgency Musc Denies arthralgias, Denies joint swelling, Denies numbness and Denies tingling Neuro Denies Abnormal speech present, Denies behavioral changes, Denies vertigo, Denies dizziness, Denies headache(s), Denies loss of vision, Denies memory loss, Denies numbness and Denies tingling Psych Denies anxiety, Denies behavioral changes, Denies depression, Denies memory loss and Denies panic attacks Anil/Lymph Denies easy bleeding and Denies easy bruising Aller/Immun Denies wheezing Physical exam (Primary Care) Vital Signs: Last Vital Signs Temp 97.1 F 01/18/25 16:00 Pulse 70 01/18/25 16:00 BP 120/62 01/18/25 16:00 Pulse Ox 94 01/18/25 16:00 Oxygen Delivery Method Room Air 01/18/25 16:00 BMI result Body Mass Index 22.4 Tobacco/Smoking Status: Tobacco use Status Tobacco use date assessed 10/20/24 01/18/25 16:03 Patient Tobacco Use Status Never used Tobacco 01/18/25 16:03 e-Cigarette/Vaping Use Never Used 01/18/25 16:03 Thrive Assessment: Date of Thrive Assessment Date Thrive assessed 10/20/24 01/18/25 16:03 Const General: healthy appearing, no acute distress, alert and awake Nutritional Appearance: well nourished Orientation/consciousness: oriented to person, oriented to place and oriented to time HENMT Ears: TM's normal bilaterally General nose exam: Normal nasal mucous membranes and turbinates present Eyes Conjunctivae: conjunctivae normal Sclerae: sclerae normal Pupils: Equal, round and reactive pupils present Neck Neck: Yes no lymphadenopathy and Yes no JVD Thyroid: Thyroid normal Carotids: no bruits Resp Effort & Inspection: normal respiratory effort and not tachypneic Auscultation: no crackles, no rales, no rhonchi and no wheezes Cardio Rate: regular rate Rhythm: regular rhythm Heart sounds: no murmurs and normal S1 and S2 GI Palpation (GI): Soft to palpation, nontender, no hepatomegaly and no splenomegaly Auscultation: normal bowel sounds Skin General skin exam: no rashes or lesions noted and dry skin Neuro General: oriented to person, oriented to place and oriented to time Cranial nerves: Yes Equal, round and reactive pupils present Speech: No Abnormal speech present Gait exam (Neuro): Normal gait present Motor exam (neuro): no tremor noted Extrem Right upper extremity: full ROM Left upper extremity: full ROM Right lower extremity: full ROM; no edema Left lower extremity: full ROM; no edema Psych Mental Status: mental status grossly normal Speech and movement: Normal speech and movement present Affect: normal affect Attitude: cooperative Thought process: Normal thought process present Coding Level of Care Code Est Pt Level 4 (55110) Diagnoses Type 2 diabetes mellitus with hyperglycemia, without long-term current use of insulin E11.65 Diabetes mellitus complication status: with hyperglycemia Diabetes mellitus emt intermediate insulin use: without [facility] use Diabetes mellitus type: type 2 Urinary retention R33.9 Typical atrial flutter I48.3 Atrial flutter type: typical Assessment & Plan Assessment & Plan (1) Diabetes mellitus: Code(s): E11.9 - Type 2 diabetes mellitus without complications Category: Medical Qualifiers: Diabetes mellitus complication status: with hyperglycemia Diabetes mellitus [facility] insulin use: without emt intermediate use Diabetes mellitus type: type 2 Qualified Code(s): E11.65 - Type 2 diabetes mellitus with hyperglycemia Plan: Patient's type 2 diabetes is suboptimally controlled. Most recent A1c at 12 from 10. Admits to drinking a few glasses of skim milk per day. We did discuss the high amount of sugar and skin milk. He will try to reduce his skin milk consumption will increase his Trulicity dose to 3 mg weekly and continue all current antihyperglycemic medication regime.. Goal A1c is to be below 7.0 (2) Urinary retention: Code(s): R33.9 - Retention of urine, unspecified Category: Medical Plan: As per HPI patient continues to have to self-catheterize due to urinary retention. Since self catheterize a his lower extremity edema has resolved. His urologist is recommending TURP procedure and patient is considering. Of note has had a few UTI recurrences over last 6 months. (3) Atrial flutter: Code(s): I48.92 - Unspecified atrial flutter Category: Medical Qualifiers: Atrial flutter type: typical Qualified Code(s): I48.3 - Typical atrial flutter Plan: Patient continues to follow cardiology. He is anticoagulated with Eliquis without any overt signs of bleeding. He is under rate control metoprolol and does report this is a very effective medication for him. Otherwise blood pressure and heart rates has been well controlled. Orders: Orders Comprehensive [place]. Panel Fast Today E11.65 - Type 2 diabetes mellitus with hyperglycemia Complete Blood Count no Diff Today E11.65 - Type 2 diabetes mellitus with hyperglycemia Hemoglobin A1c Today E11.65 - Type 2 diabetes mellitus with hyperglycemia Medications: Refilled blood-glucose sensor (FreeStyle Ирина 3 Sensor device) As directed 1 ea 6RF E11.65 - Type 2 diabetes mellitus with hyperglycemia blood-glucose,precision grinder,cont (FreeStyle Ирина 3 [place]) As directed 1 ea 1RF E11.65 - Type 2 diabetes mellitus with hyperglycemia nitrofurantoin macrocrystal must administer with a meal/food 100 mg PO BID 14 caps 0RF 7 days N39.0 - Urinary tract infection, site not specified
== END 2025-01-18 16:34 | disposition home or self-care (01) ==
LOC: HO.HMCH 15:47
PROVIDERS: PCP Physician Assistant; Visit Provider Physician Assistant
DX: E11.65 Type 2 diabetes mellitus with hyperglycemia (principal); R33.9 Retention of urine, unspecified; I48.3 Typical atrial flutter

== ENCOUNTER → 2025-01-18 15:47 | Outpatient (BNVA) | payer MEDICARE, SELFPAY | PROVIDERS: PCP Physician Assistant; Visit Provider Physician Assistant | DX: E11.65 Type 2 diabetes mellitus with hyperglycemia (principal); N40.1 Benign prostatic hyperplasia with lower urinary tract symptoms; R33.8 Other retention of urine; I25.10 Atherosclerotic heart disease of native coronary artery without angina pectoris; I48.92 Unspecified atrial flutter; I48.3 Typical atrial flutter; Z79.84 Long term (current) use of oral hypoglycemic drugs | CPT/HCPCS: 99212 ==

== ENCOUNTER 2025-04-13 08:58 | Outpatient (REF) | payer MEDICARE, SELFPAY ==
--- OUTSIDE RECORDS SUMMARY | 2025-04-13 09:12 | XMS_ITS | Patient Health Record ---
Author Organization [facility] Address [address] [place] [address] Care Team Providers Care Automatic Operator Name Role Phone Mary Carmen Acuna MDh [...] Problem Status W/U Status Risk Notes Problem [id number] Colon cancer screening (Z12.11) Active confirmed Problem 004879475 Encounter for other preprocedural examination (Z01.818) Active confirmed Problem 19196769 Other hemorrhoid s (K64.8) Active confirmed Problem 017219194 Long-term use of aspirin therapy (Z79.82) Active confirmed Plan Of Treatment Future Test Test Name Order Date COLONOSCOPY 08/04/2013 COLONOSCOPY 08/03/2019 Insurance Providers Payer Name Payer Address Payer Phone Subscriber Number Group Number Insured Name Patient Relationship to Insured Coverage Start Date Coverage End Date [facility] [place] PROFESSIONAL CLAIMS [address] [place] [address] [id number] 2 JEAN MARIE KO Self - patient is the insured Medical (General) History Medical History History ICD Code coronary artery disease with history of [place] in 2004 Benign prostatic hyperplasia diabetes type 2 hypertension hyperlipidemia Hx of heart attack and has had BYPASS Surgical History Surgery Date(Month/Year) coronary artery bypass grafting
[2025-04-13 09:41] LABS: Hematocrit 41.6 % (42.0-52.0); Hemoglobin 13.6 g/dl (14.0-18.0); Mean Corpuscular HGB Conc 32.7 g/dl (31.0-36.0); Mean Corpuscular Hemoglobin 29.6 pg (27.0-33.0); Mean Corpuscular Volume 90.4 fL (80.0-98.0); NRBC Abs Auto 0.000 X10*3/uL (0.0-0.012); NRBC Pct Auto 0.0 /100WBC (0.0-0.2); Platelet Count 248 X10*3/uL (160-400); Red Blood Count 4.60 X10*6/uL (4.60-5.80); White Blood Count 7.2 X10*3/uL (4.8-10.8)
[2025-04-13 09:46] LABS: Hemoglobin A1C 373.4182 umol/L; Total Hemoglobin (HGBA1C) 3593.6856 umol/L
[2025-04-13 10:22] LABS: Appearance Urine Turbid; Glucose Urine UA >=1000 mg/dL (Negative); PH 5.5 (5.0-9.0); Specific Gravity - Urine 1.025 (1.005-1.025); UMIC TRIGGER UACC YES
[2025-04-13 10:25] LABS: Alanine Aminotransferase 12 U/L (0-40); Albumin Level 4.3 g/dL (3.5-5.0); Alkaline Phosphatase 94 U/L (39-117); Anion Gap 11 (12-20); Aspartate Amino Transferase 17 U/L (5-37); Blood Urea Nitrogen 19 mg/dL (9-16); Calcium 9.5 mg/dL (8.4-10.2); Carbon Dioxide 28 mmol/L (22-29); Chloride 101 mmol/L (96-108); Estimated Glomerular Filt Rate > 60; Potassium 4.2 mmol/L (3.3-5.1); Sodium 136 mmol/L (135-145); Total Protein 6.8 g/dL (6.5-8.0)
[2025-04-13 11:27] LABS: UACC Culture Trigger YES
== END 2025-04-13 08:59 | disposition home or self-care (01) ==
LOC: HO.LAB 08:58
PROVIDERS: PCP Physician Assistant; Visit Provider Physician Assistant
DX: E11.65 Type 2 diabetes mellitus with hyperglycemia (principal); R30.0 Dysuria
CPT/HCPCS: 36415; 80053; 81001; 81003; 83036; 85027; 87086; 87088; 87186

== ENCOUNTER 2025-04-20 15:07 | Outpatient (AMB) | payer MEDICARE, SELFPAY ==
--- OUTSIDE RECORDS SUMMARY | 2025-04-20 15:10 | XMS_ITS | Patient Health Record ---
Author Organization [facility] Address [address] [place] [address] Care Team Providers Care Endoscopy Specialty Technician Name Role Phone Dez Torres Primary Care Provider Unavailab Ariel Acosta Jr Unavailable [phone] Reason For Referral No Information Medications Medication [...] Problem Status W/U Status Risk Notes Problem [id number] Colon cancer screening (Z12.11) Active confirmed Problem 292693289 Encounter for other preprocedural examination (Z01.818) Active confirmed Problem 81532895 Other hemorrhoid s (K64.8) Active confirmed Problem 111827200 Long-term use of aspirin therapy (Z79.82) Active confirmed Plan Of Treatment Future Test Test Name Order Date COLONOSCOPY 08/04/2013 COLONOSCOPY 08/03/2019 Next Appt Details Provider Name:Ariel partida Jr, 08/03/2025 02:15:00 PM, [address], [address], [place], [address], Insurance Providers Payer Name Payer Address Payer Phone Subscriber Number Group Number Insured Name Patient Relationship to Insured Coverage Start Date Coverage End Date [facility] PROFESSIONAL CLAIMS [address] [place] [address] [id number] 2 JEAN MARIE KO Self - patient is the insured Medical (General) History Medical History History ICD Code coronary artery disease with history of [place] in 2004 Benign prostatic hyperplasia diabetes type 2 hypertension hyperlipidemia Hx of heart attack and has had BYPASS Surgical History Surgery Date(Month/Year) coronary artery bypass grafting
--- NOTE | 2025-04-20 15:17 | A.OFFPC_ITS ---
Vital Signs 04/20/25 15:19 Height 5 ft 10 in Weight 148 lb 6 oz BMI 21.3 BP 118/62 Blood Pressure Location Lt brachial Position Sitting Pulse 66 Pulse Source Pulse Oximeter Pulse Oximetry (%) 97 Oxygen Delivery Method Room Air Intake Visit Reasons: f/u DMII - see comments Accompanied by: Self / Same As Patient Allergies No Known Allergies (No Known Allergies*) Allergy (Verified 04/20/25 15:40) Medication List - Last Reconciled 04/20/25 by Dez Torres PA-C apixaban (Eliquis) 5 mg PO BID atorvastatin 80 mg PO DAILY blood-glucose sensor (FreeStyle Ирина 3 Sensor device) As directed blood-glucose,j2ee java developer,cont (FreeStyle Ирина 3 [place]) As directed cholecalciferol (vitamin D3) 50 mcg PO DAILY 90 days compr.stocking,knee,long,large as directed dapagliflozin propanediol (Farxiga) 10 mg PO DAILY lisinopril 5 mg (1/2 x 10 mg) PO DAILY metformin 1,000 mg PO BID 90 days metoprolol tartrate 50 mg See Protocol PO BID nitrofurantoin macrocrystal 100 mg PO BID 7 days nitroglycerin 0.4 mg sublingual Q5M PRN tamsulosin 0.4 mg PO DAILY tirzepatide (Mounjaro) 2.5 mg (0.5 mL) subcut QWEEK 4 weeks Tobacco use date assessed: 04/20/25 Fall risk assessment: No Falls in past year Last assessed Fall Risk: 04/20/25 Dental Screening Dental Screen Date: 04/20/25 HPI f/u DMII - see comments HPI Details Patient is a 74-year-old male here today for follow-up visit. Patient has a past medical history significant for coronary artery disease, a flutter, type 2 diabetes. BPH/urinary retention: Considering PRostate surgery for urinary retention. Recently had another UTI and currently is treated with an antibiotic and reports he has experiencing less urinary frequency and less cloudy urine. Recent urinalysis did show positive culture was staph species. He will be following up with his urologist about his urinary retention his he has been needing to self catheterize . he is concerned about getting prostate procedure due to hospital admission. He mentions he had done a prostate/urinary retention procedure that was in office years ago. He promises to reach out to his urologist about his urinary retention Type 2 diabetes: Continues on metformin a 1000 b.i.d, . and has started Farxiga 10 mg daily. Most recent A1c at 12 from 10. He admits to drinking a few gal of skim milk per week. We did discuss that milk does have a fair amount of sugar. I DID STRONGLY ADVISED TO START DAILY INSULIN PATIENT IS SOMEWHAT AGREEABLE. PLAN: [facility] it will capture better glycemic control. .. A flutter: continues to follow a potato chip cooker machine. Continues on rate control with metoprolol and anticoagulated with Eliquis. He denies any overt signs of bleeding. [facility] Medical History Vitamin D deficiency Elevated PSA Benign prostatic hyperplasia Coronary artery disease Rectal pain Perianal cyst Diabetes mellitus Pure hypercholesterolemia Benign essential hypertension Surgical History History of colonoscopy (~08/26/19) Hx of CABG (~2004) Family History Father Colon cancer Mother No problems noted. Other Family history non-contributory Social History Household Members: Significant Other Housing: Apartment Do you presently have visiting nurse or other home services: No Alcohol intake: never Patient Tobacco Use Status: Never used Tobacco e-Cigarette/Vaping Use: Never Used Second Hand Smoke Exposure: Yes service: No Current occupational status: employed Cognitive needs: No Hearing needs: No Vision needs: Yes Questionnaire Thrive Questionnaire Date Thrive assessed: 10/20/24 LANDY-7 AMB Questionnaire LANDY-7 Date LANDY - 7 assessed: 10/20/24 Source: Developed by Drs. Zeus Harvey, Lidia Sen, Abraham Avila and colleagues, with an educational shamika from [email or web address]. Review of Systems Const Denies headache(s) Eyes Denies loss of vision ENT Denies vertigo, Denies dizziness, Denies headache(s) and Denies sore throat Card Denies chest pain, Denies leg edema and Denies lightheadedness Resp Denies cough, Denies hemoptysis and Denies wheezing GI Denies abdominal pain, Denies melena, Denies constipation, Denies diarrhea and Denies vomiting Denies dysuria, Denies urinary frequency and Denies urinary urgency Musc Denies arthralgias, Denies joint swelling, Denies numbness and Denies tingling Neuro Denies Abnormal speech present, Denies behavioral changes, Denies vertigo, Denies dizziness, Denies headache(s), Denies loss of vision, Denies memory loss, Denies numbness and Denies tingling Psych Denies anxiety, Denies behavioral changes, Denies depression, Denies memory loss and Denies panic attacks Anil/Lymph Denies easy bleeding and Denies easy bruising Aller/Immun Denies wheezing Physical exam (Primary Care) Vital Signs: Last Vital Signs Pulse 66 04/20/25 15:19 BP 118/62 04/20/25 15:19 Pulse Ox 97 04/20/25 15:19 Oxygen Delivery Method Room Air 04/20/25 15:19 BMI result Body Mass Index 21.3 Tobacco/Smoking Status: Tobacco use Status Tobacco use date assessed 04/20/25 04/20/25 15:24 Patient Tobacco Use Status Never used Tobacco 04/20/25 15:17 e-Cigarette/Vaping Use Never Used 04/20/25 15:17 Thrive Assessment: Date of Thrive Assessment Date Thrive assessed 10/20/24 04/20/25 15:17 Const General: healthy appearing, no acute distress, alert and awake Nutritional Appearance: well nourished Orientation/consciousness: oriented to person, oriented to place and oriented to time HENMT Ears: TM's normal bilaterally General nose exam: Normal nasal mucous membranes and turbinates present Eyes Conjunctivae: conjunctivae normal Sclerae: sclerae normal Pupils: Equal, round and reactive pupils present Neck Neck: Yes no lymphadenopathy and Yes no JVD Thyroid: Thyroid normal Carotids: no bruits Resp Effort & Inspection: normal respiratory effort and not tachypneic Auscultation: no crackles, no rales, no rhonchi and no wheezes Cardio Rate: regular rate Rhythm: regular rhythm Heart sounds: no murmurs and normal S1 and S2 GI Palpation (GI): Soft to palpation, nontender, no hepatomegaly and no splenomegaly Auscultation: normal bowel sounds Skin General skin exam: no rashes or lesions noted and dry skin Neuro General: oriented to person, oriented to place and oriented to time Cranial nerves: Yes Equal, round and reactive pupils present Speech: No Abnormal speech present Gait exam (Neuro): Normal gait present Motor exam (neuro): no tremor noted Extrem Right upper extremity: full ROM Left upper extremity: full ROM Right lower extremity: full ROM; no edema Left lower extremity: full ROM; no edema Psych Mental Status: mental status grossly normal Speech and movement: Normal speech and movement present Affect: normal affect Attitude: cooperative Thought process: Normal thought process present Coding Level of Care Code Est Pt Level 4 (19723) Diagnoses Type 2 diabetes mellitus with hyperglycemia, without long-term current use of insulin E11.65 Diabetes mellitus complication status: with hyperglycemia Diabetes mellitus intermediate school teacher insulin use: without [facility] use Diabetes mellitus type: type 2 Urinary retention R33.9 Typical atrial flutter I48.3 Atrial flutter type: typical Assessment & Plan Assessment & Plan (1) Diabetes mellitus: Code(s): E11.9 - Type 2 diabetes mellitus without complications Category: Medical Qualifiers: Diabetes mellitus complication status: with hyperglycemia Diabetes mellitus [facility] insulin use: without intermediate school teacher use Diabetes mellitus type: type 2 Qualified Code(s): E11.65 - Type 2 diabetes mellitus with hyperglycemia Plan: Patient's type 2 diabetes is suboptimally controlled. Most recent A1c at 12 from 10. We have transitioned his GLP 1 to Mounjaro as he had side effects to Trulicity. Blood sugars have remained elevated. AGAIN STRONGLY ADVISED ON STARTING DAILY INSULIN AND PATIENT IS SOMEWHAT OPEN TO THE IDEA THOUGH WOULD LIKE TO CONTINUE CURRENT GLP 1 FOR NOW TO SEE IF HE GETS GLYCEMIC CONTROL. Goal A1c is to be below 7.0 (2) Urinary retention: Code(s): R33.9 - Retention of urine, unspecified Category: Medical Plan: As per HPI patient continues to have to self-catheterize due to urinary retention. Since self catheterize a his lower extremity edema has resolved. His urologist is recommending TURP procedure and patient is considering. Of note has had a few UTI recurrences over last 6 months. (3) Atrial flutter: Code(s): I48.92 - Unspecified atrial flutter Category: Medical Qualifiers: Atrial flutter type: typical Qualified Code(s): I48.3 - Typical atrial flutter Plan: Patient continues to follow cardiology. He is anticoagulated with Eliquis without any overt signs of bleeding. He is under rate control metoprolol and does report this is a very effective medication for him. Otherwise blood pressure and heart rates has been well controlled. Orders: Orders Comprehensive [place]. Panel Fast 04/20/25 E11.65 - Type 2 diabetes mellitus with hyperglycemia Complete Blood Count no Diff 04/20/25 E11.65 - Type 2 diabetes mellitus with hyperglycemia Vitamin D 25-OH Total 04/20/25 E55.9 - Vitamin D deficiency, unspecified Lipid Panel 04/20/25 I25.10 - Atherosclerotic heart disease of [place] coronary artery without angina pectoris Medications: Refilled nitroglycerin every 5 minutes 0.4 mg sublingual Q5M PRN 25 tabs 1RF Angina
[2025-04-20 15:19] VITALS: BP 118/62; PULSE 66; O2SAT 97; BMI 21.3
== END 2025-04-20 15:54 | disposition home or self-care (01) ==
LOC: HO.HMCH 15:07
PROVIDERS: PCP Physician Assistant; Visit Provider Physician Assistant
DX: E11.65 Type 2 diabetes mellitus with hyperglycemia (principal); R33.9 Retention of urine, unspecified; I48.3 Typical atrial flutter

== ENCOUNTER → 2025-04-20 15:07 | Outpatient (BNVA) | payer MEDICARE, SELFPAY | PROVIDERS: PCP Physician Assistant; Visit Provider Physician Assistant | DX: E11.65 Type 2 diabetes mellitus with hyperglycemia (principal); R33.9 Retention of urine, unspecified; I25.10 Atherosclerotic heart disease of native coronary artery without angina pectoris; I48.3 Typical atrial flutter; E55.9 Vitamin D deficiency, unspecified; Z87.440 Personal history of urinary (tract) infections | CPT/HCPCS: 99212 ==

== ENCOUNTER 2025-05-16 16:45 | Outpatient (REF) | payer MEDICARE, SELFPAY ==
--- OUTSIDE RECORDS SUMMARY | 2025-05-16 16:47 | XMS_ITS | Clinical Summary ---
Author Organization [facility] Address [address] [place] [address] Phone Care Team Providers Care Grill Chef Name Role Phone Srinivasan Acuna MD Primary Care Provider [phone] Immunizations Immunization Administration Dates Next Due Influenza, Unspecified Formulation 09/27(Deferred: Other - Declines),08/07/1992(Deferred: Other - Declines),07/20/1987(Deferred: Other - Declines),09/10/1984(Deferred: Other - Declines) Pneumococcal polysaccharide PPSV23 09/27(Deferred: Other - Declines),08/07/1992(Deferred: Other - Declines) Social History Tobacco Use Types Packs/Day Years Used Date Smoking Tobacco: Never Assessed Sex and Gender Information Value Date Recorded Sex Assigned at Not on file Legal Sex Male 6:15 PM EST Gender Identity Not on file Sexual Orientation Not on file Plan of Treatment Not on file Medical Devices Not on file Insurance [place] [address] [place] [address] MEDICARE HMO BLUE REPLACEMENT [facility] MEDICARE HMO [place] [address] [place] [address] MEDIC[address] [place] [address] [place] [address] MEDIC[address] [place] [address] [place] [address] [address] [place] [address] [address] [place] [address] MEDICARE HMO BLUE REPLACEMENT [facility] MEDICARE HMO BLUE REPLACEMENT [facility] MEDICARE HMO BLUE REPLACEMENT Care Teams Grill Chef Relationship Specialty Start Date End Date Srinivasan Acuna MD [address] [place] [address] [place] [address] PCP - General 07/27/17 Additional Source Comments The information contained in this document represents components of the legal health record. It is not the complete legal health record.[facility]
--- OUTSIDE RECORDS SUMMARY | 2025-05-16 16:48 | XMS_ITS | Patient Health Record ---
Author Organization [facility] Address [address] [place] [address] Care Team Providers Care Brim Molder Name Role Phone Dez Torres Primary Care Provider Unavailab Ariel Acosta Jr Unavailable [phone] Reason For Referral No Information Medications Medication [...] Problem Status W/U Status Risk Notes Problem 315771705 Colon cancer screening (Z12.11) Active confirmed Problem 237419432 Encounter for other preprocedural examination (Z01.818) Active confirmed Problem 78029559 Other hemorrhoid s (K64.8) Active confirmed Problem 845268312 Long-term use of aspirin therapy (Z79.82) Active confirmed Plan Of Treatment Future Test Test Name Order Date COLONOSCOPY 08/04/2013 COLONOSCOPY 08/03/2019 Next Appt Details Provider Name:Ariel partida Jr, 08/03/2025 02:15:00 PM, [address], [address], [place], [address], Insurance Providers Payer Name Payer Address Payer Phone Subscriber Number Group Number Insured Name Patient Relationship to Insured Coverage Start Date Coverage End Date [facility] PROFESSIONAL CLAIMS [address] [place] [address] [id number] 2 JEAN MARIE KO Self - patient is the insured Medical (General) History Medical History History ICD Code coronary artery disease with history of [place] in 2004 Benign prostatic hyperplasia diabetes type 2 hypertension hyperlipidemia Hx of heart attack and has had BYPASS Surgical History Surgery Date(Month/Year) coronary artery bypass grafting
[2025-05-16 17:21] LABS: Appearance Urine Turbid; Glucose Urine UA >=1000 mg/dL (Negative); PH 6.5 (5.0-9.0); Specific Gravity - Urine 1.015 (1.005-1.025); UMIC TRIGGER UACC YES
[2025-05-16 17:37] LABS: UACC Culture Trigger YES
== END 2025-05-16 16:46 | disposition home or self-care (01) ==
LOC: HO.LAB 16:45
PROVIDERS: PCP Physician Assistant; Visit Provider Physician Assistant
DX: R33.9 Retention of urine, unspecified (principal); R30.0 Dysuria; N39.0 Urinary tract infection, site not specified
CPT/HCPCS: 81001; 87086; 87088; 87186

== ENCOUNTER 2025-08-01 14:33 | Outpatient (AMB) | payer MEDICARE, SELFPAY ==
--- NOTE | 2025-08-01 14:49 | MHC.PC.OV ---
Vital Signs 08/01/25 14:50 Height 5 ft 10 in Weight 149 lb 4 oz BMI 21.4 BP 100/62 Blood Pressure Location Lt brachial Position Sitting Pulse 90 Pulse Source Pulse Oximeter Temp 97.8 F Temp Source Temporal Artery Scan Pulse Oximetry (%) 98 Oxygen Delivery Method Room Air Intake Visit Reasons: 3 months Intake Note: Patient is here to follow up on DM. [employer] Required: No Certified Nurse Practitioner: Not Required per policy Allergies No Known Allergies (No Known Allergies*) Allergy (Verified 08/01/25 14:59) Medication List - Last Reconciled 08/01/25 by Dez Torres PA-C apixaban (Eliquis) 5 mg PO BID atorvastatin 80 mg PO DAILY blood-glucose sensor (FipeoStyle Ирина 3 Sensor device) As directed blood-glucose,tailman,cont (FreeStyle Ирина 3 Atkinson) As directed cholecalciferol (vitamin D3) 50 mcg PO DAILY 90 days compr.stocking,knee,long,large as directed dapagliflozin propanediol (Farxiga) 10 mg PO DAILY lisinopril 5 mg (1/2 x 10 mg) PO DAILY metformin 1,000 mg PO BID 90 days metoprolol tartrate 50 mg See Protocol PO BID nitroglycerin 0.4 mg sublingual Q5M PRN tamsulosin 0.4 mg PO DAILY tirzepatide (Mounjaro) 2.5 mg (0.5 mL) subcut QWEEK 4 weeks Tobacco use date assessed: 08/01/25 Fall risk assessment: 1 Fall in past year Last assessed Fall Risk: 08/01/25 Dental Screening Dental Screen Date: 04/20/25 HPI 3 months HPI Details Patient is a 75-year-old male here today for follow-up visit. Patient has a past medical history significant for coronary artery disease, a flutter, type 2 diabetes. PATIENT HAS SOMEWHAT NONCOMPLIANT THUS DIFFICULT CASE TO CONTROL. BPH/urinary retention: Considering PRostate surgery for urinary retention. Patient does self catheterization at home. Has urinary retention in his not interested in any surgery at this time. He did previously have some recurrent UTIs though has been much more careful and clean when self cathing. He has not followed up with his urologist Type 2 diabetes: Continues on metformin a 1000 b.i.d, . and has started Farxiga 10 mg daily. Today's A1c at 11. He admits he has not been compliant with use of his GLP 1 therapy. He promises to start his GLP 1 therapy weekly to get a better control over his sugars. I DID STRONGLY ADVISED TO START DAILY INSULIN PATIENT IS SOMEWHAT AGREEABLE. PLAN: We have transition to milenajauro in hopes it will capture better glycemic control. .. A flutter: Patient was followed by Cardiology, was previously on Eliquis for short time. though has not been taking this medication. Does seem to have rate controlled with metoprolol this time. Microbiology 01/16/25 Unknown Urine clean catch - Clean Catch Midstream Urine Culture - Final Staphylococcus epidermidis Laboratory Tests 04/04/24 07/12/24 10/20/24 09:38 07:18 15:47 RBC 4.99 Hgb Hct Creatinine Fasting Glucose Hgb A1c (Clinic) 10.8 H Hemoglobin A1c % 7.9 H 8.5 H Cholesterol LDL Cholesterol, C alc Urine Glucose (UA) Urine WBC Urine Bacteria 01/16/25 04/13/25 04/13/25 08:00 09:19 09:23 RBC 5.21 4.60 Hgb 13.6 L Hct 41.6 L Creatinine 1.17 Fasting Glucose 322 H 360 H* Hgb A1c (Clinic) Hemoglobin A1c % 12.1 H Cholesterol 202 H LDL Cholesterol, C alc 130 H Urine Glucose (UA) >=1000 H Urine WBC Urine Bacteria 05/16/25 16:55 RBC Hgb Hct Creatinine Fasting Glucose Hgb A1c (Clinic) Hemoglobin A1c % Cholesterol LDL Cholesterol, C alc Urine Glucose (UA) >=1000 H Urine WBC >50 H Urine Bacteria 1+ PFSH Medical History Vitamin D deficiency Elevated PSA Benign prostatic hyperplasia Coronary artery disease Rectal pain Perianal cyst Diabetes mellitus Pure hypercholesterolemia Benign essential hypertension Surgical History History of colonoscopy (~08/26/19) Hx of CABG (~2004) Family History Father Colon cancer Mother No problems noted. Other Family history non-contributory Social History Household Members: Significant Other Housing: Apartment Do you presently have visiting nurse or other home services: No Alcohol intake: never Patient Tobacco Use Status: Never used Tobacco e-Cigarette/Vaping Use: Never Used Second Hand Smoke Exposure: Yes service: No Current occupational status: employed Cognitive needs: No Hearing needs: No Vision needs: Yes Questionnaire Thrive Questionnaire Date Thrive assessed: 10/20/24 LANDY-7 AMB Questionnaire LANDY-7 Date LANDY - 7 assessed: 10/20/24 Source: Developed by Drs. Zeus Harvey, Lidia Sen, Abraham Avila and colleagues, with an educational shamika from [employer]. Review of Systems Const Denies headache(s) Eyes Denies loss of vision ENT Denies vertigo, Denies dizziness, Denies headache(s) and Denies sore throat Card Denies chest pain, Denies leg edema and Denies lightheadedness Resp Denies cough, Denies hemoptysis and Denies wheezing GI Denies abdominal pain, Denies melena, Denies constipation, Denies diarrhea and Denies vomiting Denies dysuria, Denies urinary frequency and Denies urinary urgency Musc Denies arthralgias, Denies joint swelling, Denies numbness and Denies tingling Neuro Denies Abnormal speech present, Denies behavioral changes, Denies vertigo, Denies dizziness, Denies headache(s), Denies loss of vision, Denies memory loss, Denies numbness and Denies tingling Psych Denies anxiety, Denies behavioral changes, Denies depression, Denies memory loss and Denies panic attacks Anil/Lymph Denies easy bleeding and Denies easy bruising Aller/Immun Denies wheezing Physical exam (Primary Care) Vital Signs: Last Vital Signs Temp 97.8 F 08/01/25 14:50 Pulse 90 08/01/25 14:50 BP 100/62 08/01/25 14:50 Pulse Ox 98 08/01/25 14:50 Oxygen Delivery Method Room Air 08/01/25 14:50 BMI result Body Mass Index 21.4 Tobacco/Smoking Status: Tobacco use Status Tobacco use date assessed 08/01/25 08/01/25 14:56 Patient Tobacco Use Status Never used Tobacco 08/01/25 14:56 e-Cigarette/Vaping Use Never Used 08/01/25 14:56 Thrive Assessment: Date of Thrive Assessment Date Thrive assessed 10/20/24 08/01/25 14:56 Const General: healthy appearing, no acute distress, alert and awake Nutritional Appearance: well nourished Orientation/consciousness: oriented to person, oriented to place and oriented to time HENMT Ears: TM's normal bilaterally General nose exam: Normal nasal mucous membranes and turbinates present Eyes Conjunctivae: conjunctivae normal Sclerae: sclerae normal Pupils: Equal, round and reactive pupils present Neck Neck: Yes no lymphadenopathy and Yes no JVD Thyroid: Thyroid normal Carotids: no bruits Resp Effort & Inspection: normal respiratory effort and not tachypneic Auscultation: no crackles, no rales, no rhonchi and no wheezes Cardio Rate: regular rate Rhythm: regular rhythm Heart sounds: no murmurs and normal S1 and S2 GI Palpation (GI): Soft to palpation, nontender, no hepatomegaly and no splenomegaly Auscultation: normal bowel sounds Skin General skin exam: no rashes or lesions noted and dry skin Neuro General: oriented to person, oriented to place and oriented to time Cranial nerves: Yes Equal, round and reactive pupils present Speech: No Abnormal speech present Gait exam (Neuro): Normal gait present Motor exam (neuro): no tremor noted Extrem Right upper extremity: full ROM Left upper extremity: full ROM Right lower extremity: full ROM; no edema Left lower extremity: full ROM; no edema Psych Mental Status: mental status grossly normal Speech and movement: Normal speech and movement present Affect: normal affect Attitude: cooperative Thought process: Normal thought process present Results AMB Hemoglobin A1c AMB Hemoglobin A1c 11.0 % Last Edit by JAYA Yang on 08/01/25 15:02 Results Reviewed Results Reviewed: Laboratory Last Values Hgb A1c (Clinic) 11.0 % (4.0-6.0) H 08/01/25 14:48 Coding Level of Care Code Est Pt Level 4 (17361) Diagnoses Type 2 diabetes mellitus with hyperglycemia, without long-term current use of insulin E11.65 Diabetes mellitus complication status: with hyperglycemia Diabetes mellitus continuous churn buttermaker insulin use: without continuous churn buttermaker use Diabetes mellitus type: type 2 Typical atrial flutter I48.3 Atrial flutter type: typical Assessment & Plan Assessment & Plan (1) Diabetes mellitus: Code(s): E11.9 - Type 2 diabetes mellitus without complications Category: Medical Qualifiers: Diabetes mellitus complication status: with hyperglycemia Diabetes mellitus skilled nursing insulin use: without continuous churn buttermaker use Diabetes mellitus type: type 2 Qualified Code(s): E11.65 - Type 2 diabetes mellitus with hyperglycemia Plan: Patient's type 2 diabetes is suboptimally controlled. Today's A1c at 11.. We have transitioned his GLP 1 to Mounjaro as he had side effects to Trulicity though unfortunately has not been taking Mounjaro at all for some unclear reason. Blood sugars have remained elevated. AGAIN STRONGLY ADVISED ON STARTING DAILY INSULIN AND PATIENT IS SOMEWHAT OPEN TO THE IDEA THOUGH WOULD LIKE TO CONTINUE CURRENT GLP 1 FOR NOW TO SEE IF HE GETS GLYCEMIC CONTROL. Goal A1c is to be below 7.0 (2) Atrial flutter: Code(s): I48.92 - Unspecified atrial flutter Category: Medical Qualifiers: Atrial flutter type: typical Qualified Code(s): I48.3 - Typical atrial flutter Plan: Was followed by Cardiology though does not can follow up anymore. He is under rate control metoprolol and does report this is a very effective medication for him. Was on Eliquis for a short period of time though felt he did not need a medication. Otherwise blood pressure and heart rates has been well controlled. Orders: Orders AMB Hemoglobin A1c Today E11.65 - Type 2 diabetes mellitus with hyperglycemia, Z13.9 - Encounter for screening, unspecified Medications: Refilled tirzepatide (Mounjaro) for 4 weeks 2.5 mg (0.5 mL) subcut QWEEK 2 mL 3RF 4 weeks E11.65 - Type 2 diabetes mellitus with hyperglycemia metoprolol tartrate 50 mg See Protocol PO BID 60 tabs 3RF I48.3 - Typical atrial flutter lisinopril 5 mg (1/2 x 10 mg) PO DAILY 90 tabs 1RF
[2025-08-01 14:50] VITALS: BP 100/62; PULSE 90; TEMP 36.6; O2SAT 98; BMI 21.4
--- OUTSIDE RECORDS SUMMARY | 2025-08-01 19:36 | XMS_ITS | Patient Health Record ---
Author Organization [facility] Address [address] [place] [address] Care Team Providers Care Career Advisor Name Role Phone Dez Torres Primary Care Provider Unavailab Ariel Acosta Jr Unavailable [phone] Reason For Referral Referring Provider First Name Srinivasan Referring Provider Last Name Armand Referring Provider Speciality Internal M edicine Referred Organization [facility] Referred Provider Ariel Green Jr Referred Address [address] [place] [address],[address],[place], [place],[address], Referred Provider Specialty Gastroentero logy General Notes Misty Borja 2024 09:08:53 AM >spoke with Margaret at Dr. Acuna's office to request an [facility] [place] for visit with Dr. Beard on 08-03-25 Referral Priority Routine Medications Medication SIG (Take, Route, Frequency, Duration) [...] 81 MG 1 tablet Orally Once a day; Duration: 30 day(s) Active Immunizations Vaccine Route Administration Date Status Comme nts Influenza Unknown 08/10/2018 Administered Influenza Unknown 02/06/2021 Refused Problems Problem Type SNOMED Code ICD Code Onset Dates Problem Status W/U Status Risk Notes Problem Colon cancer screening (202691165) Colon cancer screening (Z12.11) Active confirmed Problem Pre-procedure evaluation check (638582195) Encounter for other preprocedural examination (Z01.818) Active confirmed Problem Hemorrhoids (68438290) Other hemorrhoids (K64.8) Active confirmed Problem Long-term current use of antiplatelet drug (629568846902998 ) Long-term use of aspirin therapy (Z79.82) Active confirmed Plan Of Treatment Future Test Test Name Order Date COLONOSCOPY 08/04/2013 COLONOSCOPY 08/03/2019 Next Appt Details Provider Name:Ariel partida , 08/03/2025 02:15:00 PM, [address] [place] [address], [address], [place], [address], Insurance Providers Payer Name Payer Address Payer Phone Subscriber Number Group Number Insured Name Patient Relationship to Insured Coverage Start Date Coverage End Date [facility] PROFESSIONAL CLAIMS [address] [place] [address] [id number] JEAN MARIE KO Self - patient is the insured Medical (General) History Medical History History ICD Code coronary artery disease with history of [place] in 2004 Benign prostatic hyperplasia diabetes type 2 hypertension hyperlipidemia Hx of heart attack and has had BYPASS Surgical History Surgery Date(Month/Year) coronary artery bypass grafting
--- OUTSIDE RECORDS SUMMARY | 2025-08-01 19:36 | XMS_ITS | Clinical Summary ---
Author Organization [facility] Address [address] [place] [address] Phone Care Team Providers Care Air Conditioning Specialist Name Role Phone Srinivasan Acuna MD Primary Care Provider [phone] Immunizations Immunization Administration Dates Next Due Influenza, [...] [place] H[place] BLUE REPLACEMENT [place] [address] MEDICARE HMO BLUE REPLACEMENT [facility] MEDICARE HMO BLUE REPLACEMENT [place] [address] MEDICARE HMO BLUE [place] [address] MEDICARE HMO BLUE REPLAC[place] [address] MEDICARE HMO BLUE REPLACEMENT [place] [address] MEDICARE HMO BLUE REPLACEMENT [facility] MEDICARE HMO BLUE REPLACEMENT [facility] MEDICARE HMO BLUE REPLACEMENT Care Teams Air Conditioning Specialist Relationship Specialty Start Date End Date Srinivasan Acuna MD [address] [place] [address] [place] [address] PCP - General 07/27/17 Additional Source Comments The information contained in this document represents components of the legal health record. It is not the complete legal health record.[facility]
--- OUTSIDE RECORDS SUMMARY | 2025-08-01 19:36 | XMS_ITS | Clinical Summary ---
Author Organization [facility] Address [address] [place] [id number] Care Team Providers Care Investigator Welfare Name Role Phone Srinivasan Acuna MD Primary Care Provider [phone]- [phone] Allergies No known active allergies Encounters Date Type Department Care Team Description 07/09/2025 11:46 AM EDT - 07/09/2025 3:38 PM EDT Emergency [facility] Emergency Department [address] [place] [address] Caroline Samuels MD Closed head injury (Primary Dx); Left shoulder pain Discharge Disposition: Home or Self Care from Last 3 Months Social History Tobacco Use Types Packs/Day Years Used Date Smoking Tobacco: Never Assessed Sex and Gender Information Value Date Recorded Sex Assigned at Male 07/09/2025 12:45 PM EDT Legal Sex Male 11:40 AM EDT Gender Identity Male 07/09/2025 12:45 PM EDT Sexual Orientation Heterosexual (straight) 07/09 12:45 PM EDT Last Filed Vital Signs Vital Sign Reading Time Taken Comments Blood Pressure 138/80 07/09/2025 1:29 PM EDT Pulse 74 07/09/2025 1:29 PM EDT Temperature 35.7 C (96.3 F) 07/09/2025 11:45 AM EDT Respiratory Rate 18 07/09/2025 1:29 PM EDT Oxygen Saturation 96% 07/09/2025 1:29 PM EDT Inhaled Oxygen Concentration - - Weight - - Height - - Body Mass Index - - Plan of Treatment Health Maintenance Due Date Last Done Comments Advance Care Planning 1950 Hepatitis C Virus Screening 1950 DTaP/Tdap/Td Vaccines (1 - Tdap) 1968 Pneumococcal Vaccines 50+ (1 of 1 - PCV) 1999 Zoster (Shingles) Vaccine (1 of 2) 1999 RSV Vaccine 50 years and old er and Patients (1 - 1-dose 75+ series) 2024 Influenza Vaccine 05/12/2025 COVID-19 Vaccine (1 - 2023-2 5 season) 2025 Hepatitis B Vaccines Aged Out No long er eligible based on patient's age to complete this topic Procedures Procedure Name Priority Date/Time Associated Diagnosis Comments CT CERVICAL SPINE W/O CONTRAST STAT 07/09/2025 2:[address] HEAD W/O CONTRAST STAT 07/09/2025 2:26 PM EDT XR SHOULDER 2+ VIEWS-LEFT STAT 07/09/2025 12:22 PM EDT from Last 3 Months Results * CT Head w/o contrast (07/09/2025 2:26 PM EDT) Anatomical Region Laterality Modality Head Computed Tomogra phy 07/09/2025 2:11 PM EDT Impressions 07/09/2025 2:[address] head: No acute intracranial finding. CT cervical spine: No cervical spine fracture or traumatic malalignment identified. Narrative 07/09/2025 2:39 PM EDT EXAMINATION: CT HEAD WITHOUT CONTRAST CT CERVICAL SPINE WITHOUT CONTRAST CLINICAL INFORMATION: Fall. Head strike. COMPARISON: None TECHNIQUE: CT of the head and cervical spine were performed without intravenous contrast. Multiplanar reformats were rendered and reviewed. This CT examination was performed using dose optimization techniques as appropriate, variously including the following: *Automated exposure control *Adjustment of mA and/or kV according to patient size (this includes techniques or standardized protocols for targeted exams where dose is matched to indication/reason for exam; i.e. extremities or head) *Use of iterative reconstruction technique DLP: 1102 mGy-cm. FINDINGS: CT head: No intracranial hemorrhage, large infarction, or mass lesion is seen. Mild diffuse cortical atrophy and chronic bilateral periventricular white matter ischemic change. No extra-axial collection is appreciated. The ventricles are normal in size and configuration without evidence of hydrocephalus. Mild bilateral maxillary sinus, ethmoid air cell, and frontal sinus infundibula mucosal thickening. The mastoid air cells are clear. CT cervical spine: The vertebral body heights appear maintained. No cervical spine fracture is seen. The cervical alignment appears normal. Severe multilevel disc degenerative change most notable at C3-T2. Mild multilevel neuroforaminal narrowing most notable at C3-C6, left worse than right. Degenerative change at the atlantoaxial articulation. Calcification of the carotid arteries. The paraspinal soft tissues appear within normal limits. The partially imaged lung apices appear clear. Procedure Note Ricki Hayes MD - 07/09/2025 EXAMINATION: CT HEAD WITHOUT CONTRAST CT CERVICAL SPINE WITHOUT CONTRAST CLINICAL INFORMATION: Fall. Head strike. COMPARISON: None TECHNIQUE: CT of the head and cervical spine were performed without intravenous contrast. Multiplanar reformats were rendered and reviewed. This CT examination was performed using dose optimization techniques as appropriate, variously including the following: *Automated exposure control *Adjustment of mA and/or kV according to patient size (this includes techniques or standardized protocols for targeted exams where dose is matched to indication/reason for exam; i.e. extremities or head) *Use of iterative reconstruction technique DLP: 1102 mGy-cm. FINDINGS: CT head: No intracranial hemorrhage, large infarction, or mass lesion is seen. Mild diffuse cortical atrophy and chronic bilateral periventricular white matter ischemic change. No extra-axial collection is appreciated. The ventricles are normal in size and configuration without evidence of hydrocephalus. Mild bilateral maxillary sinus, ethmoid air cell, and frontal sinus infundibula mucosal thickening. The mastoid air cells are clear. CT cervical spine: The vertebral body heights appear maintained. No cervical spine fracture is seen. The cervical alignment appears normal. Severe multilevel disc degenerative change most notable at C3-T2. Mild multilevel neuroforaminal narrowing most notable at C3-C6, left worse than right. Degenerative change at the atlantoaxial articulation. Calcification of the carotid arteries. The paraspinal soft tissues appear within normal limits. The partially imaged lung apices appear clear. IMPRESSION: CT head: No acute intracranial finding. CT cervical spine: No cervical spine fracture or traumatic malalignment identified. Sherlyn Bryan PA-C [facility] CT ORDERABLES Final Res ult * CT Cervical spine w/o contrast (07/09/2025 2:26 PM EDT) Anatomical Region Laterality Modality C-spine Computed Tomogra phy 07/09/2025 2:11 PM EDT Impressions 07/09/2025 2:[address] head: No acute intracranial finding. CT cervical spine: No cervical spine fracture or traumatic malalignment identified. Narrative 07/09/2025 2:39 PM EDT EXAMINATION: CT HEAD WITHOUT CONTRAST CT CERVICAL SPINE WITHOUT CONTRAST CLINICAL INFORMATION: Fall. Head strike. COMPARISON: None TECHNIQUE: CT of the head and cervical spine were performed without intravenous contrast. Multiplanar reformats were rendered and reviewed. This CT examination was performed using dose optimization techniques as appropriate, variously including the following: *Automated exposure control *Adjustment of mA and/or kV according to patient size (this includes techniques or standardized protocols for targeted exams where dose is matched to indication/reason for exam; i.e. extremities or head) *Use of iterative reconstruction technique DLP: 1102 mGy-cm. FINDINGS: CT head: No intracranial hemorrhage, large infarction, or mass lesion is seen. Mild diffuse cortical atrophy and chronic bilateral periventricular white matter ischemic change. No extra-axial collection is appreciated. The ventricles are normal in size and configuration without evidence of hydrocephalus. Mild bilateral maxillary sinus, ethmoid air cell, and frontal sinus infundibula mucosal thickening. The mastoid air cells are clear. CT cervical spine: The vertebral body heights appear maintained. No cervical spine fracture is seen. The cervical alignment appears normal. Severe multilevel disc degenerative change most notable at C3-T2. Mild multilevel neuroforaminal narrowing most notable at C3-C6, left worse than right. Degenerative change at the atlantoaxial articulation. Calcification of the carotid arteries. The paraspinal soft tissues appear within normal limits. The partially imaged lung apices appear clear. Procedure Note Ricki Hayes MD - 07/09/2025 EXAMINATION: CT HEAD WITHOUT CONTRAST CT CERVICAL SPINE WITHOUT CONTRAST CLINICAL INFORMATION: Fall. Head strike. COMPARISON: None TECHNIQUE: CT of the head and cervical spine were performed without intravenous contrast. Multiplanar reformats were rendered and reviewed. This CT examination was performed using dose optimization techniques as appropriate, variously including the following: *Automated exposure control *Adjustment of mA and/or kV according to patient size (this includes techniques or standardized protocols for targeted exams where dose is matched to indication/reason for exam; i.e. extremities or head) *Use of iterative reconstruction technique DLP: 1102 mGy-cm. FINDINGS: CT head: No intracranial hemorrhage, large infarction, or mass lesion is seen. Mild diffuse cortical atrophy and chronic bilateral periventricular white matter ischemic change. No extra-axial collection is appreciated. The ventricles are normal in size and configuration without evidence of hydrocephalus. Mild bilateral maxillary sinus, ethmoid air cell, and frontal sinus infundibula mucosal thickening. The mastoid air cells are clear. CT cervical spine: The vertebral body heights appear maintained. No cervical spine fracture is seen. The cervical alignment appears normal. Severe multilevel disc degenerative change most notable at C3-T2. Mild multilevel neuroforaminal narrowing most notable at C3-C6, left worse than right. Degenerative change at the atlantoaxial articulation. Calcification of the carotid arteries. The paraspinal soft tissues appear within normal limits. The partially imaged lung apices appear clear. IMPRESSION: CT head: No acute intracranial finding. CT cervical spine: No cervical spine fracture or traumatic malalignment identified. Caroline Samuels MD IMG CT ORDERABLES Final Res ult * XR Shoulder 2+ views-Left (07/09/2025 12:22 PM EDT) Anatomical Region Laterality Modality Shoulder Left Computed Radiogr aphy 07/09/2025 11:5 3 AM EDT Impressions 07/09/2025 1:40 PM EDT Findings raise concern for a possible posterior glenohumeral joint dislocation; however, projectional/positional factors may produce a similar appearance. Recommend clinical correlation and, if indicated, additional imaging for confirmation Interpreted by: Wellington Garcia DO Stock Worker And Deliverer I personally reviewed the images and the resident's preliminary report and AGREE with the report as it is now presented ([email or web address]). Narrative 07/09/2025 1:40 PM EDT EXAMINATION: XR SHOULDER, LEFT CLINICAL INFORMATION: fall, ?deformity COMPARISON: None available. TECHNIQUE: AP external rotation, Grashey, scapular Y, and axillary views of the left shoulder. FINDINGS: The humeral head appears to be rotated on the AP view with inferior and medial displacement on the scapular Y view. No discrete fracture. Degenerative changes at the AC joint. The acromiohumeral interval is within normal limits. Soft tissues are unremarkable Procedure Note Jj Coughlin MD - 07/09/2025 EXAMINATION: XR SHOULDER, LEFT CLINICAL INFORMATION: fall, ?deformity COMPARISON: None available. TECHNIQUE: AP external rotation, Grashey, scapular Y, and axillary views of the left shoulder. FINDINGS: The humeral head appears to be rotated on the AP view with inferior and medial displacement on the scapular Y view. No discrete fracture. Degenerative changes at the AC joint. The acromiohumeral interval is within normal limits. Soft tissues are unremarkable IMPRESSION: Findings raise concern for a possible posterior glenohumeral joint dislocation; however, projectional/positional factors may produce a similar appearance. Recommend clinical correlation and, if indicated, additional imaging for confirmation Interpreted by: Wellington Garcia DO Stock Worker And Deliverer I personally reviewed the images and the resident's preliminary report and AGREE with the report as it is now presented ([email or web address]). Sherlyn Bryan PA-C [facility] Final Result from Last 3 Months Insurance [facility] Advance Directives Healthcare Agents on File Name Relationship Healthcare Agent [facility] Mallory Montanez Other 1. [facility] Care Teams Investigator Welfare Relationship Specialty Start Date End Date Srinivasan Acuna MD [address] [place] [address] Dr Spivey, [place] [address] PCP - General Internal Medicine 07/09/25
--- OUTSIDE RECORDS SUMMARY | 2025-08-01 19:36 | XMS_ITS ---
Author Name [facility] Organization Unknown Encounters Encounter Type Encounter Reason Primary Diagnosis Location Date Emergency Unspecified injury of head, initial encounter Unspecified injury of head, initial encounter [place] 07/09/2025 Care Team Organization Name Specialty Phone Email Start Date End [place] [facility] [place] LORI LEONG Primary [facility] 07/09/2025 [place] 07/09/2025 [place] 07/09/2025
== END 2025-08-01 15:20 | disposition home or self-care (01) ==
LOC: HO.HMCH 14:34
PROVIDERS: PCP Physician Assistant; Visit Provider Physician Assistant
DX: E11.65 Type 2 diabetes mellitus with hyperglycemia (principal); I48.3 Typical atrial flutter; Z13.9 Encounter for screening, unspecified

== ENCOUNTER → 2025-08-01 14:33 | Outpatient (BNVA) | payer MEDICARE, SELFPAY | PROVIDERS: PCP Physician Assistant; Visit Provider Physician Assistant | DX: E11.65 Type 2 diabetes mellitus with hyperglycemia (principal); I25.10 Atherosclerotic heart disease of native coronary artery without angina pectoris; R33.9 Retention of urine, unspecified; I48.3 Typical atrial flutter; Z91.199 Patient's noncompliance with other medical treatment and regimen due to unspecified reason; Z79.899 Other long term (current) drug therapy | CPT/HCPCS: 83036; 99212 ==

== ENCOUNTER 2025-08-14 13:28 | Outpatient (AMB) | payer MEDICARE, SELFPAY ==
--- NOTE | 2025-08-14 13:34 | A.OFFVIS_ITS ---
Vital Signs 08/14/25 13:35 Height 5 ft 10 in Weight 149 lb 0.52 oz BMI 21.4 BP 108/62 Blood Pressure Location Lt brachial Position Sitting Pulse 70 Pulse Source Monitor Intake Visit Reasons: Coloscopy clearance/ Peter req(hs) Public Health Technician Required: No Allergies No Known Allergies (No Known Allergies*) Allergy (Verified 08/14/25 13:37) Medication List - Last Reconciled 08/14/25 by BOBO LunaC atorvastatin 80 mg PO DAILY blood-glucose sensor (FreeStyle Ирина 3 Sensor device) As directed blood-glucose,tube coverer,cont (FreeStyle Ирина 3 [place]) As directed compr.stocking,knee,long,large as directed lisinopril 5 mg (1/2 x 10 mg) PO DAILY metformin 1,000 mg PO BID 90 days metoprolol tartrate 50 mg See Protocol PO BID nitroglycerin 0.4 mg sublingual Q5M PRN tamsulosin 0.4 mg PO DAILY tirzepatide (Mounjaro) 2.5 mg (0.5 mL) subcut QWEEK 4 weeks HPI HPI Coloscopy clearance/ Peter req(hs): Details: Yohannes is a 75-year-old male with past medical history of hypertension, hyperlipidemia, diabetes, paroxysmal atrial flutter, coronary artery disease, coronary artery bypass grafting 2004, ischemic cardiomyopathy who presents for follow-up and preop clearance for colonoscopy. Last visit 02/18/2024. Today he reports he has been doing well since his last visit. He has had no cardiac issues or concerns. He stopped taking Eliquis as he ran out and did not get it refilled. He did not have any bleeding issues while taking it. No chest discomfort at rest or with activities. No shortness of breath, PND, orthopnea or edema. No heart palpitations, lightheadedness, presyncope, syncope. He works full-time as an personal injury attorney. He does not engage in routine exercise but is able to climb a flight of stairs without any symptoms. His upcoming colonoscopy is routine. [facility] Medical History (Updated 08/14/25 @ 17:30 by BOBO LunaC) Pure hypercholesterolemia Benign essential hypertension Vitamin D deficiency Elevated PSA Benign prostatic hyperplasia Coronary artery disease Rectal pain Perianal cyst Diabetes mellitus Surgical History (Updated 08/14/25 @ 17:28 by ROBERT Luna) Hx of CABG (~2004) History of colonoscopy (~08/26/19) Family History Father Colon cancer Mother No problems noted. Other Family history non-contributory Social History Household Members: Significant Other Housing: Apartment Do you presently have visiting nurse or other home services: No Alcohol intake: never Patient Tobacco Use Status: Never used Tobacco e-Cigarette/Vaping Use: Never Used Second Hand Smoke Exposure: Yes service: No Current occupational status: employed Cognitive needs: No Hearing needs: No Vision needs: Yes Review of Systems Const All systems reviewed & are unremarkable except as noted in HPI and below ENT Denies dizziness Card Denies chest pain, Denies chest pain at rest, Denies chest pain with activity, Denies rapid heart rate, Denies pedal edema, Denies edema, Denies leg edema, Denies lightheadedness, Denies palpitations, Denies dyspnea, Denies dyspnea on exertion and Denies orthopnea Resp Denies cough, Denies dyspnea and Denies dyspnea on exertion GI Denies hematochezia and Denies change in stool character Musc Denies abnormal gait, Denies limited range of motion, Denies muscle cramps, Denies muscle weakness, Denies numbness, Denies radiating pain into limb, Denies stiffness and Denies tingling Neuro Denies abnormal gait, Denies dizziness, Denies numbness and Denies tingling Endo Denies palpitations Physical Exam Vital Signs: Last Vital Signs Pulse 70 08/14/25 13:35 BP 108/62 08/14/25 13:35 BMI result Body Mass Index 21.4 Const General: cooperative, healthy appearing, comfortable and no acute distress Orientation/consciousness: patient oriented x3 Neck Neck: Yes normal visual inspection Resp Effort & Inspection: normal respiratory effort Auscultation: clear to auscultation bilaterally, no rales, no rhonchi and no wheezes Cardio Rate: regular rate Rhythm: regular rhythm Heart sounds: S1 normal heart sound present, S2 normal heart sound present, no gallops, no murmurs and no rubs Neuro General: patient oriented x3 Extrem General: Yes normal to inspection Psych Appearance: grossly normal Mental Status: mental status grossly normal Speech and movement: Normal speech and movement present Office Procedures EKG Details: Today, read by me, sinus rhythm with PACs, voltage criteria for LVH, can not exclude prior lateral infarct, rate 70, QTC 436 milliseconds [id number], Complete Assessment & Plan Assessment & Plan (1) Atrial flutter: Code(s): I48.92 - Unspecified atrial flutter Category: Medical Qualifiers: Atrial flutter type: typical Qualified Code(s): I48.3 - Typical atrial flutter Plan: History of paroxysmal atrial flutter treated with heart rate control. EKG today showing sinus rhythm with 2 PACs, rate 70. He is on metoprolol 50 mg b.i.d.. He had been on Eliquis 5 mg b.i.d. but stopped a few months ago as he ran out and did not refill it. Chads Vasc score of 5 with hypertension, age, diabetes and vascular disease. Labs 04/13/2025 showed creatinine 0.97, hematocrit 41.6. Will have him restart Eliquis 5 mg b.i.d.. Stroke risk with paroxysmal atrial flutter reviewed with him. (2) Coronary artery disease: Code(s): I25.10 - Atherosclerotic heart disease of [place] coronary artery without angina pectoris Category: Medical Qualifiers: Associated angina: without angina Coronary Disease-Associated Artery/Lesion type: [place] artery [place] vs. transplanted heart: [place] heart Qualified Code(s): I25.10 - Atherosclerotic heart disease of [place] coronary artery without angina pectoris Plan: History of CAD with five-vessel coronary artery bypass grafting 2004. Echocardiogram 01/22/2023 showed EF 55-60%. Echocardiogram 11/10/2023 showed EF 45-50% with wall motion abnormality consistent with ischemic cardiomyopathy. Nuclear stress test was ordered however not completed by him. Currently no anginal symptoms. At this time he is agreeable to pursue nuclear stress test, will reorder. Will update echocardiogram. Plan to call him with test results with sooner appointment if needed. Continue high-dose atorvastatin with LDL goal less than 70. Continue metoprolol. He is not on aspirin as he is on Eliquis. Cardiology follow-up 6 months, sooner if needed or based on test results (3) Hx of CABG: Onset Date: ~2004 Comment: KONG to LAD, VG to ramus, VG to OM, VG to posterior lateral branch and VG to RCA Code(s): Z95.1 - Presence of aortocoronary bypass graft Category: Surgical Plan: As above (4) Aortic stenosis: Code(s): I35.0 - Nonrheumatic aortic (valve) stenosis Category: Medical Plan: Last echocardiogram showing csli-ol-bodisebh aortic stenosis. Murmur noted on examination. No cardinal signs of severe . Will update echo. (5) Ischemic cardiomyopathy: Code(s): I25.5 - Ischemic cardiomyopathy Category: Medical Plan: Last EF 45-50%. He is not fluid overloaded on examination today. Continue metoprolol and lisinopril for neurohormonal modulation. (6) Benign essential hypertension: Code(s): I10 - Essential (primary) hypertension Category: Medical Plan: Blood pressure goal less than 130/80. Well controlled at this time. No med changes made. (7) Pure hypercholesterolemia: Code(s): E78.00 - Pure hypercholesterolemia, unspecified Category: Medical Plan: [place] LDL goal less than 70. Labs 01/16/2025 showed LDL 130. He tells me he was not taking his statin at that time. He has since restarted. He should have updated fasting lipids in the near future. (8) Preop cardiovascular exam: Code(s): Z01.810 - Encounter for preprocedural cardiovascular examination Category: Medical Plan: Preop for colonoscopy. Cardiac testing ordered as above. Will update this note once results are available. He will likely be intermediate cardiac risk. Eliquis will need to be held 2 days prior to his procedure and restart as soon as cleared by GI to do so. Plan I discussed with the patient the importance of restarting Eliquis to mitigate stroke risk due to atrial flutter. We reviewed the need to hold Eliquis two days before the colonoscopy and restart it afterward. I explained the rationale for the echocardiogram and stress test to monitor cardiac function and valve status. Follow-up with Dr. Dunbar is planned in six months, with earlier review if necessary based on test outcomes. Orders: Orders CA echo transthoracic complete Today I25.10 - Atherosclerotic heart disease of [place] coronary artery without angina pectoris, I25.5 - Ischemic cardiomyopathy, I35.0 - Nonrheumatic aortic (valve) stenosis, Z95.1 - Presence of aortocoronary bypass graft NM cardiolite stress test Today I25.10 - Atherosclerotic heart disease of [place] coronary artery without angina pectoris, I25.5 - Ischemic cardiomyopathy, I35.0 - Nonrheumatic aortic (valve) stenosis, Z95.1 - Presence of aortocoronary bypass graft CA stress test Today I25.10 - Atherosclerotic heart disease of [place] coronary artery without angina pectoris, I25.5 - Ischemic cardiomyopathy, I35.0 - Nonrheumatic aortic (valve) stenosis, Z95.1 - Presence of aortocoronary bypass graft Medications: New apixaban (Eliquis) 5 mg PO BID 60 tabs 5RF Patient Instructions: - Restart Eliquis as advised, holding it two days before the colonoscopy and restarting afterward. - Attend scheduled echocardiogram and stress test appointments. - Follow up with Dr. Dunbar in six months or sooner if advised. Patient was informed and verbally consented to the use of an ambient scribe for clinic note documentation during this visit. Visit time spent on chart review, interview, assessment, orders, documentation. Coding Level of Care Code Est Pt Level 4 (23172) Complex EM visit Add On G2211 Diagnoses Typical atrial flutter I48.3 Atrial flutter type: typical Coronary artery disease involving [place] coronary artery of [place] heart without angina pectoris I25.10 Associated angina: without angina Coronary Disease-Associated Artery/Lesion type: [place] artery [place] vs. transplanted heart: [place] heart Hx of CABG Z95.1 Aortic stenosis I35.0 Ischemic cardiomyopathy I25.5 Benign essential hypertension I10 Pure hypercholesterolemia E78.00 Preop cardiovascular exam Z01.810 CPT Codes EKG - CPT: [id number]-[id number], Complete ([id number]) Time Spent (min) 32
[2025-08-14 13:35] VITALS: BP 108/62; PULSE 70; BMI 21.4
== END 2025-08-14 14:11 | disposition home or self-care (01) ==
LOC: HO.HCS 13:28
PROVIDERS: PCP Physician Assistant; Visit Provider Nurse Practitioner Family
DX: I48.3 Typical atrial flutter (principal); I25.10 Atherosclerotic heart disease of native coronary artery without angina pectoris; Z95.1 Presence of aortocoronary bypass graft; I35.0 Nonrheumatic aortic (valve) stenosis; I25.5 Ischemic cardiomyopathy; I10 Essential (primary) hypertension; E78.00 Pure hypercholesterolemia, unspecified; Z01.810 Encounter for preprocedural cardiovascular examination
CPT/HCPCS: 93010; 99214; G2211

== ENCOUNTER → 2025-08-14 13:28 | Outpatient (BNVA) | payer MEDICARE, SELFPAY | PROVIDERS: PCP Physician Assistant; Visit Provider Nurse Practitioner Family | DX: Z01.810 Encounter for preprocedural cardiovascular examination (principal); I48.3 Typical atrial flutter; I25.10 Atherosclerotic heart disease of native coronary artery without angina pectoris; I10 Essential (primary) hypertension; I25.5 Ischemic cardiomyopathy; I35.0 Nonrheumatic aortic (valve) stenosis; I49.3 Ventricular premature depolarization; E78.00 Pure hypercholesterolemia, unspecified; Z95.1 Presence of aortocoronary bypass graft | CPT/HCPCS: 93005; 99212 ==